=== PATIENT | female | born 1940 | race Caucasian/White ===

== ENCOUNTER → 2023-10-29 12:41 | Outpatient (REF) | payer MEDICARE, BC, SELFPAY ==
[2023-10-29 13:23] LABS: % Basophils 1.1 % (0-2); % Eosinophils 3.4 % (0-6); % Immature Granulocytes 0.1 % (0-0.5); % Lymphocytes 24.3 % (20.5-51.1); % Monocytes 11.2 % (1.7-9.3); % Neutrophils 59.9 % (42.2-75.2); Absolute Basophils 0.1 10^3/uL (0-0.2); Absolute Eosinophils 0.3 10^3/uL (0-0.7); Absolute Lymphocytes 1.8 10^3/uL (1.2-3.4); Absolute Monocytes 0.8 10^3/uL (0.1-0.6); Absolute Neutrophils 4.4 10^3/uL (1.4-6.5); Hematocrit 37.8 % (37.0-47.0); Hemoglobin 12.4 g/dL (12.0-16.0); Mean Corp Hgb Conc. 32.8 g/dL (33.0-37.0); Mean Corpuscular Hgb 29.2 pg (27.0-31.0); Mean Corpuscular Volume 88.9 fL (81.0-99.0); Mean Platelet Volume 10.6 fL (7.4-10.4); Nucleated Red Blood Cells % 0 %; Platelet Count 253 10^3/uL (130-400); Red Blood Cell Count 4.25 10^6/uL (4.20-5.40); Red Cell Dist. Width 14.6 % (11.5-14.5); White Blood Cell Count 7.3 10^3/uL (4.8-10.8)
[2023-10-29 14:34] LABS: ALT (SGPT) 24 U/L (0-35); AST (SGOT) 26 U/L (14-36); Albumin 3.9 g/dl (3.5-5.0); Alkaline Phosphatase 74 U/L (38-126); Blood Urea Nitrogen 21 mg/dl (7-17); Carbon Dioxide 26 mmol/L (22-30); Chloride 108 mmol/L (98-107); Glucose 90 mg/dl (70-99); HDL Cholesterol 63 mg/dl; LDL Cholesterol, Calculated 93 mg/dl; Potassium 4.2 mmol/L (3.5-5.1); Sodium 141 mmol/L (135-145); Total Bilirubin 0.4 mg/dl (0.2-1.3); Total Cholesterol 169 mg/dl (50-199); Total Protein 6.1 g/dl (6.3-8.2); Triglyceride 68 mg/dl (10-149); Very Low Density Lipoprotein 13 mg/dl (0-30); eGFR > 60.00
[2023-10-29 14:51] LABS: Vitamin D, 25-OH*** 32.8 ng/mL (30-80)
[2023-10-29 15:04] LABS: TSH 2.18 uIU/ml (0.47-4.68)
[2023-10-30 09:21] LABS: Intact PTH 64.3 pg/ml (13.6-85.8)
== END ==
LOC: OLABPV 12:41
PROVIDERS: ATTENDING PHYSICIAN Family Medicine
DX: E34.9 Endocrine disorder, unspecified (principal); D68.59 Other primary thrombophilia; Z79.01 Long term (current) use of anticoagulants; I10 Essential (primary) hypertension; Z68.30 Body mass index [BMI] 30.0-30.9, adult
CPT/HCPCS: 36415; 80053; 80061; 82306; 83970; 84443; 85025

== ENCOUNTER → 2023-12-25 11:27 | Outpatient (REF) | payer MEDICARE, BC, SELFPAY | LOC: RAD 11:27 | PROVIDERS: ATTENDING PHYSICIAN Registered Nurse; REFERRING PHYSICIAN Family Medicine | DX: M79.2 Neuralgia and neuritis, unspecified (principal) | CPT/HCPCS: 72040 ==

== ENCOUNTER 2024-01-02 19:44 | Emergency (ER) | payer MEDICARE, BC, SELFPAY ==
[2024-01-02 19:45] VITALS: BP 151/84
[2024-01-02 21:20] VITALS: BP 155/72
[2024-01-02 21:23] VITALS: BMI 32.0
[2024-01-02 21:42] LABS: % Basophils 0.7 % (0-2); % Eosinophils 1.7 % (0-6); % Immature Granulocytes 0.3 % (0-0.5); % Lymphocytes 19.6 % (20.5-51.1); % Neutrophils 67.7 % (42.2-75.2); Absolute Basophils 0.1 10^3/uL (0-0.2); Absolute Eosinophils 0.1 10^3/uL (0-0.7); Absolute Lymphocytes 1.4 10^3/uL (1.2-3.4); Absolute Monocytes 0.7 10^3/uL (0.1-0.6); Absolute Neutrophils 4.8 10^3/uL (1.4-6.5); Hematocrit 36.7 % (37.0-47.0); Hemoglobin 12.3 g/dL (12.0-16.0); Mean Corp Hgb Conc. 33.5 g/dL (33.0-37.0); Mean Corpuscular Hgb 29.6 pg (27.0-31.0); Mean Corpuscular Volume 88.2 fL (81.0-99.0); Mean Platelet Volume 9.8 fL (7.4-10.4); Nucleated Red Blood Cells % 0 %; Platelet Count 239 10^3/uL (130-400); Red Blood Cell Count 4.16 10^6/uL (4.20-5.40); Red Cell Dist. Width 14.5 % (11.5-14.5); White Blood Cell Count 7.1 10^3/uL (4.8-10.8)
[2024-01-02 21:48] LABS: Blood Urea Nitrogen 18 mg/dl (7-17); Calcium 9.7 mg/dl (8.4-10.2); Carbon Dioxide 29 mmol/L (22-30); Chloride 103 mmol/L (98-107); Estimated Creatinine Clearance 65 ml/min; Glucose 105 mg/dl (70-99); Potassium 4.8 mmol/L (3.5-5.1); Sodium 139 mmol/L (135-145); eGFR > 60.00
[2024-01-02 22:00] VITALS: BP 139/67
[2024-01-02 23:01] VITALS: BP 149/72
--- NOTE | 2024-01-02 23:43 | ED.GENMED ---
History of Present Illness
General
Chief Complaint: Skin Problem
Source: patient
Exam Limitations: none
Time Seen by Provider: 01/02/24 21:00
History of Present Illness
History of Present Illness:
83-year-old female presents with right lower extremity redness and swelling started yesterday. Patient has a history of chronic venous stasis changes bilateral lower extremities. She has had cellulitis in the past. She is on Coumadin. The
patient denies fevers or any other complaints.
Past History
Past History
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
ED Past Surgical History: Gynecological (Hysterectomy Total), Orthopedic (Back surgery, Heel surgery) and Other (Cerebral aneurysm)
Social History
Tobacco: Non-smoker
Alcohol: Occasional
Personal:
Living: alone
Phy Exam
Physical Exam
Physical Exam:
CONSTITUTIONAL Vital signs reviewed, Patient alert and oriented to person, place and time. Well-appearing
HEAD atraumatic, normocephalic.
EYES eyelids normal to inspection, Extraocular muscles intact, Conjunctiva normal, Sclera normal.
NECK normal range of motion, Trachea midline, no jugular venous distention.
RESP no respiratory distress
BACK No obvious deformities
UPPER EXTREMITY Gross Range of motion normal, gross motor strength normal
LOWER EXTREMITY Gross range of motion normal, Gross motor strength normal, chronic venous stasis changes bilaterally. The right lower extremity has redness that extends more proximally up toward the knee but there is no proximal streaking. Mild
increase in warmth. Mild edema
NEURO Speech normal, No focal motor deficits include, Silvia coma scale 15, Memory normal, Cranial Nerves intact to screening exam.
SKIN Skin warm, dry, and normal in color.
PSYCHIATRIC Patient oriented to person place and time, Normal affect.
Course
Orders/Labs/Results
Orders:
Orders
01/02/24 21:20
Basic Metabolic Panel Urgent
Complete Blood Count/With Diff Urgent
01/02/24 22:48
Prothrombin Time Urgent
01/02/24 22:57
Vancomycin 1 Gram/200 ml [Vancocin] 1 gram in 200 ml IV NOW
01/03/24 00:20
Acetaminophen [Tylenol] 650 mg .ROUTE .STK-MED ONE
01/03/24 00:21
Acetaminophen [Tylenol] 650 mg PO NOW STA
Abnormal Lab Results
01/02/24 01/02/24
21:20 22:48
RBC 4.16 L 10^6/uL
(4.20-5.40)
Hct 36.7 L %
(37.0-47.0)
Absolute Monos (auto) 0.7 H 10^3/uL
(0.1-0.6)
Lymphocytes % 19.6 L %
(20.5-51.1)
Monocytes % 10.0 H %
(1.7-9.3)
PT 25.9 H Sec
(11.4-14.6)
BUN 18 H mg/dl
(7-17)
Glucose 105 H mg/dl
(70-99)
01/02/24 21:20
01/02/24 21:20
Vital Signs
Initial and Last Documented VS:
Initial Vital Signs
Temp Pulse Resp BP Pulse Ox
98.1 F 79 16 151/84 95
01/02/24 19:45 01/02/24 19:45 01/02/24 19:45 01/02/24 19:45 01/02/24 19:45
Last Documented Vital Signs
Temp Pulse Resp BP Pulse Ox
98.1 F 79 16 162/82 91
01/02/24 19:45 01/02/24 19:45 01/02/24 19:45 01/03/24 00:00 01/03/24 00:00
MDM/Problems Addressed
MDM/Problems Addressed:
Cellulitis, chronic venous stasis
*Pulse Oximetry
Patient hypoxic: no
*Critical Care Note
Total Time (30-74mins, 75-104mins- exclusive of procedures): Not Applicable
Data Reviewed
Review of Other/Old Records Reveals: Discharge Summary (From December 2020 reviewed. Patient had cellulitis at that time)
Source: patient and family
Further Testing Considered But Not Given:
Consider DVT scan but patient already on Coumadin
Patient Management
Escalation/DeEscalation of care consider admission/obs:
Shared medical decision making for admission versus outpatient management. Patient would like to trial outpatient management which I think is reasonable given the fact that she is afebrile and her white count is normal. Given IV dose of Vanco.
Continue outpatient oral antibiotics
ED Attending Note
-
Portions of this chart may have been created with voice recognition software.� Occasional wrong word or��sound alike� substitutions may have occurred due to the inherent limitations of voice recognition software.
Discharge Plan
Departure
Patient Disposition: Home (Routine Discharge)
Date of Disposition: 01/03/24
Time of Disposition: 01:37
Patient with high blood pressure during this ER visit?: Yes
Discharge Problem:
Cellulitis, Chronic cutaneous venous stasis ulcer
Instructions: Cellulitis (Skin Infection), Adult (DC), BLOOD PRESSURE
Prescriptions:
New
doxycycline hyclate 100 mg capsule
100 mg PO BID Qty: 20 0RF
No Action
levothyroxine 75 MCG tablet
75 mcg PO DAILY
warfarin 2.5 mg Tablet
5 mg PO MOFR@1930
calcium carbonate [Calcium 600] 600 mg calcium (1,500 mg) Tablet
600 mg PO DAILY
gabapentin 300 mg Capsule
300 mg PO TID
furosemide 20 mg Tablet
20 mg PO DAILY
Visbiome 112.5 billion cell Capsule
1 cap PO DAILY
dexlansoprazole 30 mg Capsule,Biphase Delayed Releas
30 mg PO QPM
Foltx 2-1.13-25 mg Tablet
1 tab PO DAILY
warfarin [Jantoven] 2.5 MG tablet
2.5 mg PO SUTUWETHSA@1930
Referrals:
Sheldon Stewart CRNP [Family Provider] -
Activity Restrictions/Additional Instructions:
Return immediately for fevers, increased redness, weakness, or any other concerns. Please have your doctor reevaluate your lower extremity again in the next 3 to 5 days.
Interventions
Interventions:
*Risk Screen - Suicide Last Done: 01/02/24 19:45
*General Assessment Last Done: 01/02/24 19:45
*Neglect/Abuse Screening Last Done: 01/02/24 19:45
*ED COVID-19 Vaccine History Last Done: 01/02/24 21:24
Discharge Date and Time
Print Language: SPANISH
[2024-01-02] MEDS: VANCOCIN 200 IV (23:58)
[2024-01-03] VITALS: BP 162/82
[2024-01-03] MEDS: TYLENOL 650 MG PO (00:21)
[2024-01-03 00:40] LABS: INR 2.34; PT 25.9 Sec (11.4-14.6)
== END 2024-01-03 02:09 | disposition home or self-care (01) ==
LOC: EMR 19:44
PROVIDERS: EMERGENCY PHYSICIAN Emergency Medicine; FAMILY PHYSICIAN Registered Nurse
DX: L03.115 Cellulitis of right lower limb (principal); I87.2 Venous insufficiency (chronic) (peripheral); E03.9 Hypothyroidism, unspecified; K21.9 Gastro-esophageal reflux disease without esophagitis; Z86.73 Personal history of transient ischemic attack (TIA), and cerebral infarction without residual deficits; Z79.01 Long term (current) use of anticoagulants; Z79.899 Other long term (current) drug therapy
CPT/HCPCS: 99284; 96365; 80048; 85025; 85610

== ENCOUNTER → 2024-06-03 11:12 | Outpatient (REF) | payer MEDICARE, BC, SELFPAY ==
[2024-06-03 11:51] LABS: % Basophils 1.1 % (0-2); % Eosinophils 2.6 % (0-6); % Immature Granulocytes 0.3 % (0-0.5); % Lymphocytes 17.5 % (20.5-51.1); % Monocytes 10.5 % (1.7-9.3); Absolute Basophils 0.1 10^3/uL (0-0.2); Absolute Eosinophils 0.2 10^3/uL (0-0.7); Absolute Lymphocytes 1.5 10^3/uL (1.2-3.4); Absolute Monocytes 0.9 10^3/uL (0.1-0.6); Hematocrit 35.9 % (37.0-47.0); Hemoglobin 11.3 g/dL (12.0-16.0); Mean Corp Hgb Conc. 31.5 g/dL (33.0-37.0); Mean Corpuscular Hgb 27.3 pg (27.0-31.0); Mean Corpuscular Volume 86.7 fL (81.0-99.0); Mean Platelet Volume 10.5 fL (7.4-10.4); Nucleated Red Blood Cells % 0 %; Platelet Count 279 10^3/uL (130-400); Red Blood Cell Count 4.14 10^6/uL (4.20-5.40); Red Cell Dist. Width 15.2 % (11.5-14.5); White Blood Cell Count 8.8 10^3/uL (4.8-10.8)
[2024-06-03 15:30] LABS: ALT (SGPT) 25 U/L (0-35); AST (SGOT) 32 U/L (14-36); Albumin 4.6 g/dl (3.5-5.0); Alkaline Phosphatase 89 U/L (38-126); Blood Urea Nitrogen 15 mg/dl (7-17); Calcium 10.2 mg/dl (8.4-10.2); Carbon Dioxide 26 mmol/L (22-30); Chloride 100 mmol/L (98-107); Glucose 97 mg/dl (70-99); Potassium 5.1 mmol/L (3.5-5.1); Sodium 137 mmol/L (135-145); Total Bilirubin 1.4 mg/dl (0.2-1.3); Total Protein 7.5 g/dl (6.3-8.2); eGFR > 60.00
== END ==
LOC: OLABPV 11:12
PROVIDERS: ATTENDING PHYSICIAN Family Medicine
DX: D68.59 Other primary thrombophilia (principal); Z79.01 Long term (current) use of anticoagulants; K21.9 Gastro-esophageal reflux disease without esophagitis; I10 Essential (primary) hypertension
CPT/HCPCS: 36415; 80053; 85025

== ENCOUNTER → 2024-06-05 08:50 | Outpatient (REF) | payer MEDICARE, BC, SELFPAY | LOC: RAD 08:50 | PROVIDERS: ATTENDING PHYSICIAN Internal Medicine Gastroenterology; FAMILY PHYSICIAN Family Medicine | DX: R63.4 Abnormal weight loss (principal) | CPT/HCPCS: 74221 ==

== ENCOUNTER → 2024-06-18 09:57 | Outpatient (REF) | payer MEDICARE, BC, SELFPAY | LOC: RST 09:57 | PROVIDERS: ATTENDING PHYSICIAN Family Medicine | DX: J39.0 Retropharyngeal and parapharyngeal abscess (principal); R13.10 Dysphagia, unspecified | CPT/HCPCS: 74230; 92611 ==

== ENCOUNTER → 2024-07-03 10:35 | Outpatient (REF) | payer MEDICARE, BC, SELFPAY ==
[2024-07-03 12:02] LABS: % Basophils 0.9 % (0-2); % Eosinophils 1.8 % (0-6); % Immature Granulocytes 0.3 % (0-0.5); % Lymphocytes 15.8 % (20.5-51.1); % Monocytes 11.7 % (1.7-9.3); % Neutrophils 69.5 % (42.2-75.2); Absolute Basophils 0.1 10^3/uL (0-0.2); Absolute Eosinophils 0.2 10^3/uL (0-0.7); Absolute Lymphocytes 1.5 10^3/uL (1.2-3.4); Absolute Monocytes 1.1 10^3/uL (0.1-0.6); Absolute Neutrophils 6.8 10^3/uL (1.4-6.5); Hematocrit 38.8 % (37.0-47.0); Hemoglobin 12.3 g/dL (12.0-16.0); Mean Corp Hgb Conc. 31.7 g/dL (33.0-37.0); Mean Corpuscular Hgb 26.8 pg (27.0-31.0); Mean Corpuscular Volume 84.5 fL (81.0-99.0); Mean Platelet Volume 10.7 fL (7.4-10.4); Nucleated Red Blood Cells % 0 %; Platelet Count 304 10^3/uL (130-400); Red Blood Cell Count 4.59 10^6/uL (4.20-5.40); Red Cell Dist. Width 15.8 % (11.5-14.5); White Blood Cell Count 9.7 10^3/uL (4.8-10.8)
[2024-07-03 12:22] LABS: Iron 50 ug/dl (37-170)
[2024-07-03 12:31] LABS: Percent Saturation 13 % (20-50); Total Iron Binding Capacity 359 ug/dl (265-497)
[2024-07-03 12:47] LABS: Ferritin 87.2 ng/ml (11.1-264.0)
[2024-07-03 13:18] LABS: Folate > 20.0 ng/ml (2.76-20); Vitamin B12 > 1000 pg/ml (239-931)
== END ==
LOC: OLABPV 10:35
PROVIDERS: ATTENDING PHYSICIAN Family Medicine
DX: R79.89 Other specified abnormal findings of blood chemistry (principal); D64.9 Anemia, unspecified; D51.8 Other vitamin B12 deficiency anemias
CPT/HCPCS: 36415; 82607; 82728; 82746; 83540; 83550; 85025

== ENCOUNTER → 2024-07-17 09:54 | Outpatient (REF) | payer MEDICARE, BC, SELFPAY ==
[2024-07-17 10:44] LABS: % Basophils 0.9 % (0-2); % Eosinophils 2.6 % (0-6); % Immature Granulocytes 0.1 % (0-0.5); % Lymphocytes 18.2 % (20.5-51.1); % Monocytes 13.6 % (1.7-9.3); % Neutrophils 64.6 % (42.2-75.2); Absolute Basophils 0.1 10^3/uL (0-0.2); Absolute Eosinophils 0.2 10^3/uL (0-0.7); Absolute Lymphocytes 1.4 10^3/uL (1.2-3.4); Absolute Monocytes 1.1 10^3/uL (0.1-0.6); Hematocrit 36.4 % (37.0-47.0); Hemoglobin 11.4 g/dL (12.0-16.0); Mean Corp Hgb Conc. 31.3 g/dL (33.0-37.0); Mean Corpuscular Hgb 26.9 pg (27.0-31.0); Mean Corpuscular Volume 85.8 fL (81.0-99.0); Mean Platelet Volume 10.1 fL (7.4-10.4); Nucleated Red Blood Cells % 0 %; Platelet Count 279 10^3/uL (130-400); Red Blood Cell Count 4.24 10^6/uL (4.20-5.40); Red Cell Dist. Width 15.8 % (11.5-14.5); White Blood Cell Count 7.7 10^3/uL (4.8-10.8)
[2024-07-17 12:27] LABS: ALT (SGPT) 23 U/L (0-35); AST (SGOT) 21 U/L (14-36); Albumin 3.7 g/dl (3.5-5.0); Alkaline Phosphatase 82 U/L (38-126); Blood Urea Nitrogen 12 mg/dl (7-17); Calcium 9.9 mg/dl (8.4-10.2); Carbon Dioxide 27 mmol/L (22-30); Chloride 94 mmol/L (98-107); Glucose 85 mg/dl (70-99); Sodium 129 mmol/L (135-145); Total Bilirubin 0.6 mg/dl (0.2-1.3); Total Protein 6.1 g/dl (6.3-8.2); eGFR > 60.00
[2024-07-17 13:32] LABS: TSH 0.65 uIU/ml (0.47-4.68)
== END ==
LOC: OLABPV 09:54
PROVIDERS: ATTENDING PHYSICIAN Family Medicine
DX: R63.4 Abnormal weight loss (principal); R11.10 Vomiting, unspecified
CPT/HCPCS: 36415; 80053; 84443; 85025

== ENCOUNTER → 2024-07-22 11:48 | Outpatient (REF) | payer MEDICARE, BC, SELFPAY ==
[2024-07-22 12:40] LABS: NT-proBNP 172 pg/ml
[2024-07-22 12:42] LABS: Osmolality Urine 450 mOsm/kg (300-900)
[2024-07-22 12:55] LABS: Osmolality Serum 282 mOsm/kg (275-300)
[2024-07-22 12:57] LABS: Urine Sodium 55 mmol/L (30-90)
== END ==
LOC: OLABPV 11:48
PROVIDERS: ATTENDING PHYSICIAN Family Medicine
DX: E87.1 Hypo-osmolality and hyponatremia (principal); I10 Essential (primary) hypertension
CPT/HCPCS: 36415; 82570; 83880; 83930; 83935; 84300

== ENCOUNTER 2024-09-25 02:35 | Inpatient (IN) | payer MEDICARE, BC, SELFPAY ==
[2024-09-24 15:52] VITALS: BP 133/71
[2024-09-24 16:10] LABS: % Basophils 0.7 % (0-2); % Eosinophils 0.7 % (0-6); % Immature Granulocytes 0.3 % (0-0.5); % Lymphocytes 8.3 % (20.5-51.1); % Monocytes 7.2 % (1.7-9.3); % Neutrophils 82.8 % (42.2-75.2); Absolute Basophils 0.1 10^3/uL (0-0.2); Absolute Eosinophils 0.1 10^3/uL (0-0.7); Absolute Lymphocytes 0.8 10^3/uL (1.2-3.4); Absolute Monocytes 0.7 10^3/uL (0.1-0.6); Absolute Neutrophils 7.6 10^3/uL (1.4-6.5); Hematocrit 39.4 % (37.0-47.0); Hemoglobin 12.5 g/dL (12.0-16.0); Mean Corp Hgb Conc. 31.7 g/dL (33.0-37.0); Mean Corpuscular Hgb 25.8 pg (27.0-31.0); Mean Corpuscular Volume 81.2 fL (81.0-99.0); Mean Platelet Volume 9.9 fL (7.4-10.4); Nucleated Red Blood Cells % 0 %; Platelet Count 235 10^3/uL (130-400); Red Blood Cell Count 4.85 10^6/uL (4.20-5.40); Red Cell Dist. Width 16.9 % (11.5-14.5); White Blood Cell Count 9.2 10^3/uL (4.8-10.8)
[2024-09-24 16:26] LABS: ALT (SGPT) 24 U/L (0-35); AST (SGOT) 27 U/L (14-36); Albumin 3.9 g/dl (3.5-5.0); Alkaline Phosphatase 73 U/L (38-126); Blood Urea Nitrogen 17 mg/dl (7-17); Calcium 9.7 mg/dl (8.4-10.2); Carbon Dioxide 28 mmol/L (22-30); Chloride 99 mmol/L (98-107); Glucose 143 mg/dl (70-99); Potassium 4.4 mmol/L (3.5-5.1); Sodium 132 mmol/L (135-145); Total Bilirubin 0.6 mg/dl (0.2-1.3); eGFR > 60.00
[2024-09-24 18:15] LABS: Lipase 130 U/L (23-300)
[2024-09-24 18:33] VITALS: BP 140/65
--- NOTE | 2024-09-24 18:36 | ED.GENMED ---
History of Present Illness
General
Chief Complaint: Abdominal Symptoms
Source: patient
Exam Limitations: none
Time Seen by Provider: 09/24/24 18:36
Nursing documentation reviewed up to this point in time: agreed with
History of Present Illness
History of Present Illness:
84 yo female sent here from Dr. Elizabeth's office. Dr. Elizabeth texted the following:
Margoth Weiss 42
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
Acute complaints SOB , anorexia , bilious vomiting -witnessed here in office , and 30 pound weight loss in past 2 months , (exacerbated by psych)
Needs full workup and psych evaluation
May need meds ( benzodiazepines/ haldol ) as definite behavior issues
Daughter at bedside expresses concern for
1) coughing fits past 10 months, coughing so hard she gags and vomits and intermittently coughs up clots of blood. Last blood noted 3 days ago
2) SOB even when walking 15 steps, is 'completely out of breath'
3) Loss of 30 lbs past 5 months, 10 of that in past month. Daughter states she has trouble even to get her to drink Ensure.
Pt states she's had 'this cough' points to sternal notch area to describe where cough comes from.
Pt states every time she eats, 'it just comes right back up.' Denies nausea prior to vomiting
Daughter states pt has been worked up by ENT, GI for cough with no explanation of symptoms.
Daughter states Dr. Elizabeth wants CT scan of chest, abd, pelvis with contrast
Past History
Past History
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
ED Past Surgical History: Gynecological (Hysterectomy Total), Orthopedic (Back surgery, Heel surgery) and Other (Cerebral aneurysm)
Social History
Tobacco: Non-smoker
Alcohol: Occasional
Personal:
Living: alone
Review of Systems
Review of Systems
Allergies reviewed?: Yes
All Other Systems: ROS reviewed and negative except as documented in HPI and ROS
Constitutional: Denies fever
EENT: Reports sore throat (feels the problem is in her throat like 'scar tissue') and other (ptosis right eye)
Respiratory: Denies trouble breathing
Cardiac: Denies chest pain
ABD/GI: Reports vomiting (reported, none here); Denies abdominal pain or nausea
: Denies dysuria, frequency or difficulty voiding
Musculoskeletal: Reports no symptoms
Skin: Reports no symptoms
Neurological: Reports no symptoms
Phy Exam
Physical Exam
Physical Exam:
GENERAL: No acute distress. A&Ox3.
CONSTITUTIONAL: Afebrile.
EYES: clear, conjunctivae normal
ENMT: moist mucus membranes, Pharynx nl, swallowing well.
RESPIRATORY: Regular respirations, nonlabored, lungs clear.
CARDIOVASCULAR: Regular rate and rhythm, no murmurs, no rubs.
GI: Soft, nontender, normal BS
MUSCULOSKELETAL: Moves with ease. Well perfused.
SKIN: Warm, dry, pink
PSYCH: Normal mood and affect. Well kept, interactive and appropriate
NEUROLOGIC: Awake, alert and oriented. No focal neurological deficits
Course
Orders/Labs/Results
Orders:
Orders
09/24/24 15:58
Complete Blood Count/With Diff Urgent
Comprehensive Metabolic Panel Urgent
Lipase Urgent
Comment: ADD ON
09/24/24 18:22
EKG [Electrocardiogram (*1)] Urgent
Reason for Study: Shortness of Breath
EKG- Treatment ONCE
Chest [CR Chest - 2 Views ] Urgent
Comment:
Reason For Exam: cough/sob
09/24/24 19:22
Crisis Consult Urgent
Reason for Consult: failure to thrive,
09/24/24 19:28
CT Chest/abd/pel W Iv Cont Urgent
Comment: with po contrast
Reason For Exam: wt. loss, sig cough, unable to eat
09/24/24 19:29
Iohexol [Omnipaque] See Protocol PO NOW STA
09/24/24 19:32
0.9% Sodium Chloride 250 ml [Nss] 250 ml IV BOLUS
09/25/24 01:56
Admit/Transfer Patient As Directed
Co-Sign Provider:
Level of Care: Inpatient admission
Assign to:: Telemetry
Physician / Group: Mitchell
Diagnosis: Lung Mass, Hypoxemia
Reason for Telemetry: Arrhythmia
Date to Stop Telemetry: 09/28/24
Time to Stop Telemetry: 11:00
Reason for Hospitalization: Lung Mass, Hypoxemia
Expected length of stay greater than two midnights?: Yes
ELOS- Estimated Length of Stay in days: 4
I certify the patient meets the requirements for IP care: Yes
09/25/24 01:57
PRN Pain Medication Management As Directed
May give lesser potent ordered pain med per pt: Yes
preference::
Protocol:: Medication orders for pain may be administered in a
manner that supports deferring to patient preference
when the pt is:
- Requesting an ordered lesser potent pain medication.
Least to most potent pain medications are defined
as: acetaminophen < NSAID < tramadol < opioids
(morphine, oxycodone, hydromorphone).
- Requesting a lesser dose of the same medication IF
ORDERED.
- Requesting a less intrusive route of administration
if both routes are prescribed by the provider (PO <
IV).
09/25/24 01:58
Code Status As Directed
Resuscitation Status: Full Code
09/25/24 02:00
Flush (0.9% Sodium Chloride) [Flush (Nss)] See Dose Instructions IV PER PROTOCOL
09/25/24 02:33
Olanzapine [Zyprexa] 2.5 mg PO Q6HPRN PRN
09/25/24 03:43
Benzonatate [Tessalon Perles] 200 mg PO TIDPRN PRN
09/25/24 04:19
PT/INR [Prothrombin Time] Urgent
09/25/24 05:42
Acetaminophen [Tylenol] 650 mg PO Q4HPRN PRN
Albuterol Nebs [Ventolin Nebules] 2.5 mg INH R Q4HPRN PRN
09/25/24 05:42
Echo 2D MMode Doppler [Echo 2D MMode Color/Doppler] Routine
Reason for Study: SOB
Consult Notification Routine
Specialty to Notify: Pulmonary
Date consulting provider notified: 09/25/24
Time consulting provider notified: 07:13
Notified:: Provider
Comment: tt
PULMONARY CONSULT Routine
Consulting Provider: Gigi Hernandez
Was physician already notified: No
Reason for consult: Lung Mass
VTE Contraindication Routine
VTE Mechanical Device Contraindication: PVD
Pharmocologic Contraindication: Blood coag disorder
MR Brain W/o & With Contrast Routine
Comment:
Reason For Exam: Mental Status Change, Lung Mass
Recent pill cam endoscopy?: No
Activity As Directed
Activity Level: Ambulate
With Assistance
I/O [Intake/ Output] As Directed
Frequency: Per unit guidelines
Quantify Hemopytsis As Directed
Vital Signs As Directed
Frequency: Per unit guidelines
Weight As Directed
Frequency: Daily
Oxygen Therapy [O2 Therapy] [RESP] Routine
Titrate/Wean O2 to maintain O2 sat greater than (%): 94
09/25/24 Breakfast
Regular
At Your Request: Limited Participation
Oral Supplement (If unsure of flavor order apple or vanilla): Ensure Enlive Vanilla
Supplement Frequency: BID
Levothyroxine [Synthroid] 75 mcg PO DAILY @ 0600
09/25/24 06:37
Complete Blood Count/No Diff IN AM
Prothrombin Time IN AM
TSH Reflex To Free T4 Routine
09/25/24 08:00
Pantoprazole [Protonix] 40 mg PO DAILY
09/26/24 06:00
Prothrombin Time IN AM
09/27/24 06:00
Prothrombin Time IN AM
09/28/24 06:00
Prothrombin Time IN AM
09/28/24 11:00
DC Protocol for Telemetry ONCE
09/29/24 06:00
Prothrombin Time IN AM
Abnormal Lab Results
09/24/24
15:58
MCH 25.8 L pg
(27.0-31.0)
MCHC 31.7 L g/dL
(33.0-37.0)
RDW 16.9 H %
(11.5-14.5)
Absolute Neuts (auto) 7.6 H 10^3/uL
(1.4-6.5)
Absolute Lymphs (auto) 0.8 L 10^3/uL
(1.2-3.4)
Absolute Monos (auto) 0.7 H 10^3/uL
(0.1-0.6)
Neutrophils % 82.8 H %
(42.2-75.2)
Lymphocytes % 8.3 L %
(20.5-51.1)
Sodium 132 L mmol/L
(135-145)
Glucose 143 H mg/dl
(70-99)
09/24/24 15:58
09/24/24 15:58
Vital Signs
Initial and Last Documented VS:
Initial Vital Signs
Temp
98.0 F
09/24/24 15:49
Last Documented Vital Signs
Temp Pulse Resp BP Pulse Ox
98.0 F 93 20 140/75 93
09/25/24 15:00 09/25/24 15:00 09/25/24 15:00 09/25/24 15:00 09/25/24 15:00
MDM/Problems Addressed
Differential Diagnosis Includes:
anxiety about health, PNA,
MDM/Problems Addressed:
84 yo female sent here from Dr. Elizabeth's office. Dr. Elizabeth texted the following:
Margoth Axler 42
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
Acute complaints SOB , anorexia , bilious vomiting -witnessed here in office , and 30 pound weight loss in past 2 months , (exacerbated by psych)
Needs full workup and psych evaluation
May need meds ( benzodiazepines/ haldol ) as definite behavior issues
Daughter at bedside expresses concern for
1) coughing fits past 10 months, coughing so hard she gags and vomits and intermittently coughs up clots of blood. Last blood noted 3 days ago
2) SOB even when walking 15 steps, is 'completely out of breath'
3) Loss of 30 lbs past 5 months, 10 of that in past month. Daughter states she has trouble even to get her to drink Ensure.
Pt states she's had 'this cough' points to sternal notch area to describe where cough comes from.
Pt states every time she eats, 'it just comes right back up.' Denies nausea prior to vomiting
Daughter states pt has been worked up by ENT, GI for cough with no explanation of symptoms.
Daughter states Dr. Elizabeth wants CT scan of chest, abd, pelvis with contrast
7:00 p.m.
Afebrile, NAD.
CBC, CMP normal
Lipase normal
9:50 PM:
Received a call from CAT scan, patient jumped off the table as soon as it started to move, she is refusing to have a CAT scan
She has been very difficult to get to do anything that we recommend here tonight
Crisis has been in, patient's daughter considered a 302 but turf farm worker states it probably will not be upheld
Daughter then tells turf farm worker that there is a 'psychiatric team' that is going to evaluate the patient tomorrow at home
Crisis in to speak with patient and daughter.
10:15 p.m.
Just prior to discharge, pt road test failed, she is tachypneic, mild upper airway stridor, pulse ox dipped to 88%
Pt spoken to by RN and myself and daughter, she is now willing to go to CT scan.
11:55 PM:
CAT scan abdomen pelvis and chest: Radiology report read: IMPRESSION:
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
left atrium.
Multiple pulmonary metastases.
Fluid attenuation hepatic lesions favored to represent cysts, but hepatic metastases are not completely excluded.
Daughter notified of complete radiology report/diagnosis
Due to patient's fragile psychological status, informed that she has a mass on her lungs and has to be admitted for further evaluation.
Hospitalist notified of admission
Chronic conditions affecting care: Psychiatric illness (anxiety)
*Critical Care Note
Total Time (30-74mins, 75-104mins- exclusive of procedures): Not Applicable
ED Attending Note
-
Portions of this chart may have been created with voice recognition software.� Occasional wrong word or��sound alike� substitutions may have occurred due to the inherent limitations of voice recognition software.
Discharge Plan
Departure
Patient Disposition: Admit
Date of Disposition: 09/24/24
Time of Disposition: 23:50
Admit to: Med/Surg
Presentation/result/management discussed w/ accepting MD/DO: Hospitalist
Patient with high blood pressure during this ER visit?: No
Condition: Serious
Discharge Problem:
Metastatic cancer, Hypoxemia
Interventions
Interventions:
*Risk Screen - Suicide Last Done: 09/24/24 15:49
*General Assessment Last Done: 09/24/24 18:43
*Neglect/Abuse Screening Last Done: 09/24/24 15:49
*ED- Fall Risk Assessment Last Done: 09/24/24 18:43
*ED COVID-19 Vaccine History Last Done: 09/25/24 01:12
*Nursing Disposition Last Done: 09/25/24 05:46
PA-Fbngqf-Heybzrests Assessment Last Done: 09/24/24 18:43
Discharge Date and Time
Discharge Date/Time: 09/25/24 05:48
[2024-09-24 18:43] VITALS: BMI 27.1
[2024-09-24 19:00] VITALS: BP 134/76
[2024-09-24] MEDS: OMNIPAQUE 50 ML PO (19:36)
[2024-09-24 20:00] VITALS: BP 143/78
[2024-09-24] MEDS: NSS 250 IV (20:47)
[2024-09-25] VITALS (11 sets, daily range): BP systolic 98–156; BP diastolic 60–96; BMI 25.5
--- NOTE | 2024-09-25 02:04 | HPS.HSE ---
Family Physician
-
Family Physician: NOT KNOW UNKNOWN - PT DOES
Chief Complaint
-
Cough, SOB, Weight Loss
History of Present Illness
Patient is an 84y F with PMH significant for Protein C Deficiency who presents to ED for evaluation of cough, SOB and weight loss. History obtained from patient and her daughter at the bedside. Patient has had ongoing cough for about 8 months
or so. This has become increasingly more frequent and harsh. She has occasional paroxysms of cough with 'emesis' - though it is usually of mucoid secretions. She has had streaks of blood / clots noted in the mucus more recently. Patient has been
notably short of breath with activity for the past month or so. This too has been steadily progressive and daughter notes that yesterday she could barely walk due to SOB. She denies any pain in the chest, back, etc.
No fevers / chills. No known sick contacts.
Patient has had very poor appetite x several months as well and has lost about 30 lbs in the past 6 months.
Patient has been recently evaluated by ENT and GI in regards to her cough - with no clear diagnosis / etiology discovered.
She was seen today by her PCP and referred to the ED for further evaluation. There is noted some concern for psychiatric disturbance / behaviors in PCP correspondence.
Medical History
Past Medical History
Past Medical History: Reports Other
Additional Past Medical History:
Protein C Deficiency
- Cerebral Thrombosis
- DVT
GERD
DDD
Venous Insufficiency
Hypothyroidism
Past Surgical History: Reports Other
Additional Past Surgical History:
Cerebral Thrombectomy
Lumbar Discectomy
Fibroid Resection
Social History
Tobacco: Non-smoker
Alcohol: None
Drug: None
Family History
Family History: Other (Father: CAD Brother: DM, CAD)
Allergies / Home Medications
Allergies reflects when Allergies were last updated in [employer].
Home Medications with original date entered in [employer]
Allergy/Medication List:
Allergies
Allergy/AdvReac Type Severity Reaction Status Date / Time
Sulfa (Sulfonamide Allergy Unknown Verified 09/24/24 15:51
Antibiotics)
Home Medications
levothyroxine 75 mcg tablet 75 mcg PO DAILY Thyroid 01/04/21
Lactobac no.2-Bifidobac no.1-S. thermo 112.5 billion cell capsule (Visbiome) 1 cap PO DAILY 01/02/24
calcium carbonate (Calcium 600) 600 mg PO DAILY 01/02/24
cyanocobalamin 2 mg-levomefolate brittanie 1.13 mg-pyridoxine 25 mg tablet (Foltx) 1 tab PO DAILY 01/02/24
dexlansoprazole 30 mg capsule,biphase delayed release 30 mg PO QPM 01/02/24
furosemide 20 mg tablet 20 mg PO DAILY 01/02/24
gabapentin 300 mg capsule 300 mg PO TID 01/02/24
warfarin 2.5 mg tablet 5 mg PO MOFR@192901/02/24
warfarin 2.5 mg tablet (Jantoven) 2.5 mg PO SUTUWETHSA@192901/02/24
doxycycline hyclate 100 mg capsule 100 mg PO BID #20 caps 01/03/24
tramadol 1 tab PO HS 09/24/24
Review of Systems
-
History Source: Patient and Family
A 12 point ROS was completed and negative except as noted: Yes
Constitutional: Reports Weight Loss and Fatigue; Denies Fever or Chills
EENT: Reports Sore Throat
Respiratory: Reports Cough, Hemoptysis and Trouble Breathing
Cardiac: Denies Chest Pain or Palpitations
Abdomen/GI: Reports Vomiting and Anorexia; Denies Abdominal Pain or Nausea
: Denies Dysuria or Frequency
Musculoskeletal: Reports Edema; Denies Joint Pain
Neurological: Denies Dizzy or Headache
Psych: Denies Depression or Anxiety
Physical Exam
Vital Signs
Vital Signs
Temp Pulse Resp BP Pulse Ox
98.3 F 64 18 127/70 97
09/24/24 15:52 09/25/24 01:09 09/25/24 01:09 09/25/24 01:09 09/25/24 01:09
Physical Exam
General: Other (84y F in no acute distress.)
HEENT: Other (Chronic R ptosis. R visual field deficit - chronic.)
Respiratory: Other (Decreased BS at the R base. Scattered wheezes. Cough with deep inspiration.)
Cardiac: S1/S2 and Regular Rhythm; No Murmur
GI: Soft, Non Tender, Non Distended and Normal Bowel Sounds
Musculoskeletal: No Clubbing and Other (Chronic venous stasis dermatitis b/l lower legs.)
Neuro: AO x 3
Laboratory Results
-
09/24/24 15:58
09/24/24 15:58
Laboratory Results
Total Bilirubin 0.6 mg/dl (0.2-1.3) 09/24/24 15:58
AST 27 U/L (14-36) 09/24/24 15:58
ALT 24 U/L (0-35) 09/24/24 15:58
Alkaline Phosphatase 73 U/L (38-126) 09/24/24 15:58
Lipase 130 U/L (23-300) 09/24/24 15:58
Impression/Plan
-
A/P: Patient is a 71y F with PMH significant for protein C deficiency and hypothyroidism who presents to ED complaining of cough, SOB and weight loss x months.
Pulmonary Mass(es)
Hypoxemic Respiratory Insufficiency secondary to the above
- Admit for further evaluation and treatment.
- Large RLL mass with collapse / atelectasis of RML and local extension / invasion including the liver, R adrenal and L atrium. Additional smaller lesions in the b/l upper lobes.
- Pulmonary evaluation for additional recommendations.
- Will need tissue sampling / pathology with either Pulm / FOB or IR.
- Hold Coumadin for now (see below).
- Supportive care. Nutrition support. etc.
- Oncology eval following tissue diagnosis.
Mental Status Change
- Not clear how chronic behavior issues are - but not formally evaluated / diagnosed by Psych yet and no mention of this on prior visits here.
- Given apparent malignancy, would check MRI brain with contrast to rule out metastatic lesions therein.
- Zyprexa PRN for agitation.
Protein C Deficiency
- History of cerebral thrombosis many years ago (1970s) and RLE DVT (1980s).
- Maintained on Coumadin which will be held acutely.
- Follow INR (initial check still pending at this time).
- If no intervention imminent, would begin heparin bridge once INR < 2.5 and resume immediately post-procedure.
- INR goal 2.5 - 3.5.
Hypothyroidism
- Continue current T4 replacement. Update TFTs.
GERD
- Continue daily PPI.
DVT Prophylaxis: On Coumadin at present / heparin bridge when needed.
Code Status: Full
[2024-09-25] MEDS: ZYPREXA 2.5 MG PO (02:47)
[2024-09-25] MEDS: TESSALON PERLES 200 MG PO ×4 (03:51→22:14)
[2024-09-25 04:38] LABS: INR 1.69; PT 20.4 Sec (11.4-14.6)
[2024-09-25] MEDS: SYNTHROID 75 MCG PO (05:53)
--- NOTE | 2024-09-25 05:55 | PTCARENOTE ---
Pt recieved from ED via stretcher at 0540. Pt AAOx3, VSS, and able to ambulate into room with assistance. Pt receptive to room and call balderas. Pt bed in lowest position and call balderas within reach. Pt educated on importance of call balderas usage, pt
relays understanding. Bed alarm placed and plugged in. Will continue with current plan of care.
[2024-09-25 07:09] LABS: Hematocrit 38.5 % (37.0-47.0); Mean Corp Hgb Conc. 33.8 g/dL (33.0-37.0); Mean Corpuscular Hgb 26.5 pg (27.0-31.0); Mean Corpuscular Volume 78.4 fL (81.0-99.0); Mean Platelet Volume 10.2 fL (7.4-10.4); Platelet Count 213 10^3/uL (130-400); Red Blood Cell Count 4.91 10^6/uL (4.20-5.40); Red Cell Dist. Width 16.8 % (11.5-14.5); White Blood Cell Count 8.3 10^3/uL (4.8-10.8)
[2024-09-25 07:16] LABS: INR 1.61; PT 19.7 Sec (11.4-14.6)
--- NOTE | 2024-09-25 08:33 | W.PN.HOSP.TC ---
Today's Communication/Plan
-
see A/P
Assessment / Plan
Assessment / Plan
84 yo F with PMH significant for Protein C Deficiency who presented to ED for evaluation of cough, SOB and weight loss. History obtained from patient and her daughter at bedside.
Patient has had ongoing cough for about 8 months or so. This has become increasingly more frequent and harsh. She has occasional paroxysms of cough with 'emesis' - though it is usually of mucoid secretions. She has had streaks of blood / clots
noted in the mucus more recently. Patient has been notably short of breath with activity for the past month or so. This too has been steadily progressive and daughter notes that yesterday she could barely walk due to SOB. She denies any pain in the
chest, back, etc.
No fevers / chills. No known sick contacts.
Patient has had very poor appetite x several months as well and has lost about 30 lbs in the past 6 months.
Patient has been recently evaluated by ENT and GI in regards to her cough - with no clear diagnosis / etiology discovered.
She was seen on DOA by her PCP and referred to the ED for further evaluation. There is noted some concern for psychiatric disturbance / behaviors in PCP correspondence.
CT CAP:
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
left atrium.
Multiple pulmonary metastases.
Fluid attenuation hepatic lesions favored to represent cysts, but hepatic metastases are not completely excluded.
A/P:
# Pulmonary Mass(es)
# Acute hypoxic Respiratory Insufficiency secondary to the above
Large RLL mass with collapse / atelectasis of RML and local extension / invasion including the liver, R adrenal and L atrium. Additional smaller lesions in the b/l upper lobes.
Pulmonary evaluation for additional recommendations.
Will need tissue sampling / pathology with either Pulm / FOB or IR.
Hold Coumadin for now (see below).
Oncology eval following tissue diagnosis.
Check echo with CT report noted likely cancer invasion to left atrium.
# Mental Status Change
Not clear how chronic behavior issues are - but not formally evaluated / diagnosed by Psych yet and no mention of this on prior visits here.
Given apparent malignancy, would check MRI brain with contrast to rule out metastatic lesions therein.
Zyprexa PRN for agitation.
# Protein C Deficiency
# History of cerebral thrombosis many years ago (1970s) and RLE DVT (1980s).
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
Start heparin bridge
# Hypothyroidism
Continue current T4 replacement. Update TFTs.
# GERD
Continue daily PPI.
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
Code Status: Full
updated daughter on the phone. Extensive discussion
total time spent 51 min
Anticipated Discharge: > 48 hours
Subjective/Interval History
-
Date of Service: September 25, 2024
Objective Data
-
Labs:
Laboratory Results
09/25/24 09/25/24 09/25/24
04:19 06:37 08:11
WBC 8.3
Hgb 13.0
Hct 38.5
Plt Count 213
PT 20.4 H 19.7 H
INR 1.69 1.61
Sodium Cancelled Pending
Potassium Cancelled Pending
Chloride Cancelled Pending
Carbon Dioxide Cancelled Pending
BUN Cancelled Pending
Creatinine Cancelled Pending
Glucose Cancelled Pending
Calcium Cancelled Pending
Vital Signs:
Vital Signs
Temp Pulse Resp BP Pulse Ox
36.6 C 91 20 98/78 94
09/25/24 05:59 09/25/24 05:59 09/25/24 05:59 09/25/24 05:59 05/30/25 05:59
I&O
09/24/24 09/25/24 09/26/24
06:59 06:59 06:59
Intake Total 480 / 480
Balance 480 / 480
Review of Systems
-
History Source: Patient
Respiratory: Reports Cough and Trouble Breathing
Physical Exam
-
General: Well Developed, Well Nourished, Comfortable, Respiratory Distress (mild) and Conversant
HEENT: Normocephalic, Atraumatic, Nose Appears Normal, Ears Appear Normal and Oxygen (2L NC)
Respiratory: Non Labored Respirations; Negative Accessory Resp Muscle Use
Cardiac: Regular Rhythm and S1/S2
GI: Soft, Nontender, Nondistended and Normal Bowel Sounds
Skin: Warm and Dry
Neuro: Awake and Alert
Psych: Calm and Intact Judgement/Insight
Data Reviewed
-
CT Scan: Report Reviewed by me, Discussed with Patient and Discussed with Family
Labs: Labs Reviewed by me
[2024-09-25] MEDS: PROTONIX 40 MG PO (08:55)
[2024-09-25] MEDS: ANESTHETIC LOZENGE 1 LOZENGE PO ×3 (08:56→23:31)
--- NOTE | 2024-09-25 08:59 | CON.PUL ---
Consultation
Consultation Request
Date/Time Consultation Requested: 09/25
Date/Time Consultation Performed: 09/25
Reason for Consultation: Abnormal imaging
Medical History
-
History of Present Illness:
History obtained from the patient, reviewing inpatient records, outpatient records and history from the daughter at the bedside. Pleasant 84-year-old female who presents with abdominal symptoms. Patient was sent by primary physician. Patient has
history of possible schizophrenia/bipolar disorder. She has noticed a 30 pound weight loss over the past few months. Patient also has been complaining of cough, with blood clots over the past few months. She also describes increased shortness of
breath, difficulty taking a deep breath. She was noted to have episodes of emesis which prompted ED evaluation. Upon arrival, afebrile, pulse 96, breathing at 27, blood pressure 143/78, 92%. Imaging was obtained which revealed significant lung
abnormalities which we are asked to comment on
Of note, crisis team was called in the ED yesterday p.m. as patient refused to have a CAT scan. Patient did have some mild stridor which was transient associated with tachypnea
.
PMH: Questionable schizophrenia/bipolar disorder, history of GERD, hypothyroidism, protein C deficiency with history of DVT, IBS, chronic venous stasis changes. History of hysterectomy, back surgery, history of stroke with cerebral aneurysm in the
1970s
Past Medical History
Past Medical History: None (See above)
Past Surgical History: None (See above)
Social History
Tobacco: Non-smoker
Alcohol: None
Drug: None
Personal:
Living: Alone
Employment: Not Employed
Family History
Family History: Other (1 daughter who is healthy. Family history negative for cancer, blood clots)
Allergies / Home Medications
Allergies
Allergy/AdvReac Type Severity Reaction Status Date / Time
Sulfa (Sulfonamide Allergy Unknown Verified 09/24/24 15:51
Antibiotics)
Home Medications
�Medication �Instructions �Recorded �Confirmed �Last Taken �Type
levothyroxine 75 mcg tablet 75 mcg PO DAILY Thyroid 01/04/21 09/24/24 09/24/24 History
Lactobac no.2-Bifidobac no.1-S. 1 cap PO DAILY 01/02/24 09/24/24 09/24/24 History
thermo 112.5 billion cell capsule
(Visbiome)
calcium carbonate (Calcium 600) 600 mg PO DAILY 01/02/24 09/24/24 09/24/24 History
cyanocobalamin 2 mg-levomefolate 1 tab PO DAILY 01/02/24 09/24/24 09/24/24 History
brittanie 1.13 mg-pyridoxine 25 mg
tablet (Foltx)
dexlansoprazole 30 mg 30 mg PO QPM 01/02/24 09/24/24 09/24/24 History
capsule,biphase delayed release
furosemide 20 mg tablet 20 mg PO DAILY 01/02/24 09/24/24 09/24/24 History
gabapentin 300 mg capsule 300 mg PO TID 01/02/24 09/24/24 01/02/24 History
warfarin 2.5 mg tablet 5 mg PO MOFR@0 01/02/24 09/24/24 09/24/24 History
warfarin 2.5 mg tablet (Jantoven) 2.5 mg PO SUTUWETHSA@1930 01/02/24 09/24/24 09/24/24 History
doxycycline hyclate 100 mg capsule 100 mg PO BID #20 caps 01/03/24 09/24/24 Unknown Rx
tramadol 1 tab PO HS 09/24/24 09/24/24 09/23/24 History
Review of Systems
-
All other systems: Negative unless noted
Vitals / Labs / Diagnostic Testing
Vital Signs
Temp Pulse Resp BP Pulse Ox
98.2 F 88 18 140/72 94
09/25/24 07:00 09/25/24 07:00 09/25/24 07:00 09/25/24 07:00 09/25/24 07:00
Lab Data
09/25/24 08:42
Laboratory Results
09/25/24 09/25/24 09/25/24
04:19 06:37 08:42
PT 20.4 H 19.7 H
INR 1.69 1.61
APTT Cancelled
Diagnostic Testing:
Physical Exam
-
HEENT: Normocephalic, Anicteric and Other (Right lid lag)
Cardiovascular: S1/S2, Regular Rhythm, Murmur (2/6 systolic murmur) and Rub (n)
Respiratory: Wheeze (Few scattered), Rales (n), Rhonchi (n), Non-Labored Respirations, Other (No stridor) and Other (Decreased breath sounds right side)
GI: Soft, Non Distended and Non Tender
Neurology: Awake, Alert and No Motor Deficits (Moves all extremities)
Skin: Other (Chronic venous stasis changes)
General: Comfortable
Assessment
-
84-year-old female with history of protein C deficiency, DVT, stroke/cerebral aneurysm in , presents with 30 pound weight loss, hemoptysis, cough for many months, now with increased shortness of breath and emesis. CT imaging reveals 12.3 cm
right lower lobe mass with invasion into the left atrium, right hepatic lobe and adrenal gland with multiple pulmonary metastases
12.3 cm right lung mass with invasion into the liver, mediastinum
Subjective dyspnea, cough x 10 months
Hemoptysis
30 pound weight loss
Bilious emesis
Questionable schizophrenia/bipolar disorder
Conditions present prior to admission
History of protein C deficiency
DVT, stroke
On chronic Coumadin therapy
Seizure disorder
GERD
Chronic venous stasis changes
Plan/recommendations
At this time, patient appears to be comfortable. There is no audible wheezing or stridor
Chest exam with decreased breath sounds right side
Reviewed CT imaging at length with patient and daughter
Concerning for underlying malignancy okay thanks bye
Moving forward
Remains off Coumadin
Heparin will be started per primary service as bridge
Consulted interventional radiology for transthoracic lung biopsy, possible liver biopsy
Timing to be determined
Quantify hemoptysis
Patient aware of likely cancer diagnosis. She would like to proceed with least a biopsy. This was confirmed by daughter at bedside
She is aware that if found to have metastatic cancer, chemotherapy would be the next step. She proceeded to state that she would not want chemotherapy
This will be an ongoing discussion
Reviewed with interventional radiology. Consult placed
Echocardiogram also ordered per primary service
Would advise ongoing discussion regarding goals of care. Patient presently is full code
Given description of potential invasion into the mediastinum, atrium, encouraged ongoing discussion regarding CODE STATUS
Will follow
[2024-09-25 09:34] LABS: TSH Reflex To Free T4 1.71 uIU/ml (0.47-4.68)
[2024-09-25 09:44] LABS: Blood Urea Nitrogen 11 mg/dl (7-17); Calcium 9.6 mg/dl (8.4-10.2); Carbon Dioxide 28 mmol/L (22-30); Chloride 100 mmol/L (98-107); Estimated Creatinine Clearance 64 ml/min; Glucose 139 mg/dl (70-99); Potassium 4.3 mmol/L (3.5-5.1); Sodium 134 mmol/L (135-145); eGFR > 60.00
--- NOTE | 2024-09-25 11:38 | CM ---
Met with patient at bedside; initial assessment completed
Pharmacy verified: [facility] @ [id number], [place], [place]
Patient lives alone @ [facility]; bath has raised toilet, shower stall with grab bar
PLOF: patient reported she is independent with ambulation and ADLs; does not drive; has a vision impairment
No recent SNF or Home Health utilization history
DME: INR test device
Daughter will transport
Plan: anticipate discharge to home; CM will monitor for home oxygen needs
[2024-09-25] MEDS: HEPARIN 25000 UNITS/250 ML IV (13:15)
--- NOTE | 2024-09-25 18:04 | W.PN.UPDATE ---
Update Note
Progress Note Update
Reviewed images at length with interventional radiology. Unfortunately significant necrosis is suspected based on imaging. Additionally given invasion, at least compression into the left atrium, daughter states that patient has difficulty lying
down for prolonged period of time. In fact, Daughter is convinced that what happened yesterday when patient was lying down for CT chest was a sense of shortness of breath and dread as opposed to a panic attack or psychiatric event. This would make
sense given location of mass, obstruction of airway, compression/invasion of left atrium and mediastinal structures
Based on this, I would advise against a biopsy as it may cause more harm than help the patient. Patient is already made a clear at least with my discussion that she would not want any treatment (i.e. chemotherapy).
I advised daughter to speak with patient regarding the above. If patient would like to proceed with biopsy on Saturday we can arrange understanding the risk and the potential inability to biopsy based on inability to maintain supine position for
prolonged period of time
Daughter also states that patient has had advanced directive where she would not want anything aggressive but apparently she has changed this. Daughter is power of real estate attorney. This will be an ongoing discussion between the daughter and the patient.
Please note that daughter is requesting not to discuss any negative findings without daughter present as patient tends to get panic attacks and extremely anxious. We will try to honor this.
For now, continue heparin therapy. Plan for possible biopsy on Saturday if patient and family requests understanding risks vs transition to palliative care
Reviewed at length with primary service, interventional radiology
Will follow
[2024-09-25 20:52] LABS: APTT 99.8 Sec (23.4-35.0)
[2024-09-26] VITALS (7 sets, daily range): BP systolic 120–168; BP diastolic 70–99
[2024-09-26 03:44] LABS: APTT 150.7 Sec (23.4-35.0)
[2024-09-26] MEDS: SYNTHROID 75 MCG PO (06:11)
[2024-09-26 09:00] LABS: INR 1.54; PT 18.7 Sec (11.4-14.6)
[2024-09-26 09:35] LABS: Blood Urea Nitrogen 9 mg/dl (7-17); Calcium 9.5 mg/dl (8.4-10.2); Carbon Dioxide 26 mmol/L (22-30); Chloride 103 mmol/L (98-107); Estimated Creatinine Clearance 64 ml/min; Glucose 94 mg/dl (70-99); Potassium 4.3 mmol/L (3.5-5.1); Sodium 135 mmol/L (135-145); eGFR > 60.00
[2024-09-26] MEDS: ZYPREXA 2.5 MG PO (09:54)
[2024-09-26] MEDS: PROTONIX 40 MG PO (09:54)
[2024-09-26] MEDS: TESSALON PERLES 200 MG PO ×2 (09:55→22:18)
[2024-09-26] MEDS: ANESTHETIC LOZENGE 1 LOZENGE PO ×2 (09:55→20:30)
--- NOTE | 2024-09-26 11:30 | W.PN.UPDATE ---
Update Note
Progress Note Update
Psychiatric Evaluation dictated.
84 year old lady who was just diagnosed with likely lung Ca. She admits she is anger and is questioning the diagnosis; wants to be transferred to [facility]. She denies hopelessness or suicidal thoughts.
Overall friendly and cooperative with the interview. Denies previous psychiatric history; daughter who was present is also not aware of any.
At this point emotional suppot is indicated; no psychotropic meds are needed.
Discussed with daughter.
[2024-09-26] MEDS: HEPARIN 25000 UNITS/250 ML IV (11:41)
[2024-09-26] MEDS: MORPHINE SULFATE 0.25 MG IV (11:49)
--- NOTE | 2024-09-26 12:43 | W.PN.HOSP.TC ---
Today's Communication/Plan
-
Transfer to IVU, heparin gtt for rapid afib.
Assessment / Plan
Assessment / Plan
84 yo F with PMH significant for Protein C Deficiency who presented to ED for evaluation of cough, SOB and weight loss. History obtained from patient and her daughter at bedside.
Patient has had ongoing cough for about 8 months or so. This has become increasingly more frequent and harsh. She has occasional paroxysms of cough with 'emesis' - though it is usually of mucoid secretions. She has had streaks of blood / clots
noted in the mucus more recently. Patient has been notably short of breath with activity for the past month or so. This too has been steadily progressive and daughter notes that yesterday she could barely walk due to SOB. She denies any pain in the
chest, back, etc.
No fevers / chills. No known sick contacts.
Patient has had very poor appetite x several months as well and has lost about 30 lbs in the past 6 months.
Patient has been recently evaluated by ENT and GI in regards to her cough - with no clear diagnosis / etiology discovered.
She was seen on DOA by her PCP and referred to the ED for further evaluation. There is noted some concern for psychiatric disturbance / behaviors in PCP correspondence.
CT CAP:
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
the right adrenal gland, and the left atrium.
Multiple pulmonary metastases.
Fluid attenuation hepatic lesions favored to represent cysts, but hepatic metastases are not completely excluded.
A/P & Hospital course by problem:
1. Pulmonary Mass(es) and Acute hypoxic Respiratory Insufficiency secondary to the above
Large RLL mass with collapse / atelectasis of RML and local extension / invasion including the liver, R adrenal and L atrium.
Additional smaller lesions in the b/l upper lobes.
Pulmonary evaluation for additional recommendations.
Will need tissue sampling / pathology with either Pulm / FOB or IR if tolerable
Continue to Hold Coumadin (see below).
Oncology eval following tissue diagnosis, if tissue diagnosis is possible
Checked echo given that the CT report noted likely cancer invasion to left atrium.
Echo ok.
2. Mental Status Change
Not clear how chronic behavior issues are - but not formally evaluated / diagnosed by Psych yet and no mention of this on prior visits here.
Given apparent malignancy, check MRI brain with contrast to rule out metastatic lesions therein. MRI pending
Zyprexa PRN for agitation.
3. Rapid Afib - new issue
Started IV dilt gtt
Transfer to IVU
Check troponins
4. Protein C Deficiency - Chronic
5. History of cerebral thrombosis many years ago (1970s) and RLE DVT (1980s).
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
heparin bridge while coumadin held
6. Hypothyroidism
Continue current T4 replacement.
Update TFTs.
7. GERD - chronic
Continue daily PPI.
DVT Prophylaxis: TELEPHONE MECHANIC Coumadin on hold, on heparin bridge
Code Status: Full
updated daughter in the room
total time spent 51 min
Anticipated Discharge: > 48 hours
Subjective/Interval History
-
Date of Service:
Feels anxious
Objective Data
-
Labs:
Laboratory Results
09/26/24 09/26/24 09/26/24
03:08 08:39 10:20
PT 18.7 H
INR 1.54
APTT 150.7 H* 84.0 H
Sodium 135
Potassium 4.3
Chloride 103
Carbon Dioxide 26
BUN 9
Creatinine 0.6
Glucose 94
Calcium 9.5
09/26/24
17:00
PT
INR
APTT Pending
Sodium
Potassium
Chloride
Carbon Dioxide
BUN
Creatinine
Glucose
Calcium
Vital Signs:
Vital Signs
Temp Pulse Resp BP Pulse Ox
98.3 F 139 18 136/98 98
09/26/24 11:43 09/26/24 11:43 09/26/24 11:43 09/26/24 11:43 09/26/24 11:43
I&O
09/25/24 09/26/24 09/27/24
06:59 06:59 06:59
Intake Total 480 / 480 1680 / 1680
Balance 480 / 480 1680 / 1680
Review of Systems
-
History Source: Patient
Respiratory: Reports Cough and Trouble Breathing
Physical Exam
-
General: Well Developed, Well Nourished and Conversant
HEENT: Nose Appears Normal and Ears Appear Normal
Respiratory: Rhonchi and Decreased Breath Sounds
Cardiac: Regular Rhythm, S1/S2 and Tachycardic
GI: Soft, Nontender and Nondistended
Skin: Warm and Dry
Neuro: Awake and Alert
Psych: Anxious
[2024-09-26] MEDS: CARDIZEM 125 IV ×2 (13:00→20:10)
[2024-09-26 13:36] LABS: Troponin I < 0.012 ng/ml
--- NOTE | 2024-09-26 14:20 | PTCARENOTE ---
Patient received to IVU for Cardizem drip with titration. HR 150-160. Cardizem rate adjusted per protocol, currently at 15mg/hr, HR 132, BP 128/80, oxygen 3 liters NS 98%. Orthopneic, right upper and right lower inspiratory and expiratory wheezes,
hoarse voice, harsh cough with expiratory stridor. oxygen at 3 liters NC 98%. lower legs brown/red thick skin. Heparin gtt infusing at 1100 units/hr. Poor appetite, consult nutrition, takes ensure at home. She is AO x3, anxious, verbal but
cooperative. Daughter at bedside, call balderas in reach
--- NOTE | 2024-09-26 15:42 | W.PN.PUL3 ---
Today's Communication / Plan
-
Cardizem drip with goal HR <110
Monitor for hemoptysis, especially while on heparin drip
Recommend cardiology consult to help manage the rapid A-fib
I am concerned that this malignancy which is suspected to be invading her left atrium could be contributing to her arrhythmia
Goals of care discussion is essential as she could continue to deteriorate; recommend consult to oncology + palliative care medicine and possibly arrange a family meeting if needed
IR consult for transthoracic needle aspiration or liver biopsy which would be the least invasive way to obtain tissue
Pulmonary service will continue to follow along
Assessment
-
84-year-old female with history of protein C deficiency, DVT, stroke/cerebral aneurysm in , presents with 30 pound weight loss, hemoptysis, cough for many months, now with increased shortness of breath and emesis. CT imaging reveals 12.3 cm
right lower lobe mass with invasion into the left atrium, right hepatic lobe and adrenal gland with multiple pulmonary metastases
12.3 cm right lung mass with invasion into the liver, mediastinum
Subjective dyspnea, cough x 10 months
Hemoptysis
30 pound weight loss
Bilious emesis
Questionable schizophrenia/bipolar disorder
Rapid A-fib now requiring Cardizem drip
Conditions present prior to admission
History of protein C deficiency
DVT, stroke
On chronic Coumadin therapy
Seizure disorder
GERD
Chronic venous stasis changes
Plan/recommendations
At this time, patient appears to be comfortable. I do hear wheezing + stridor today on 09/26, but she still appears to be comfortable
Dr. Benites had reviewed CT imaging at length with patient and daughter
Concerning for underlying malignancy
Moving forward
Remains off Coumadin
Heparin started per primary service as bridge
Consulted interventional radiology for transthoracic lung biopsy, possible liver biopsy
Timing to be determined
Quantify hemoptysis -she currently denies any bloody phlegm as of 09/26; continue to closely monitor especially while on heparin drip
Continue Cardizem drip with goal HR <110
Recommend cardiology consult
I am concerned that this malignancy which is suspected to be invading her left atrium could be contributing to her arrhythmia today
Goals of care discussion is essential as she could continue to deteriorate; recommend consult to oncology + palliative care medicine and possibly arrange a family meeting if needed
Patient aware of suspected cancer diagnosis. She would like to proceed with least a biopsy. This was confirmed by daughter at bedside with Dr. Benites
She is aware that if found to have metastatic cancer, chemotherapy would be the next step. She proceeded to state that she would not want chemotherapy
This will be an ongoing discussion
Dr. Benites reviewed with interventional radiology. Consult placed
Echocardiogram performed on 09/25/2024 showing preserved LVEF 60 to 65% with normal regional wall motion, mild concentric LVH, normal RV size/function, with moderate MR, trace AI and normal PASP at 20-25 mmHg
Would advise ongoing discussion regarding goals of care. Patient presently is full code
Given description of potential invasion into the mediastinum, atrium, encouraged ongoing discussion regarding CODE STATUS
Will follow
Total time spent today was 37 minutes for this encounter. Time includes reviewing laboratory test/imaging results, reviewing pertinent medical records, obtaining and reviewing medical history, performing an appropriate exam, ordering medications,
tests and procedures. Time also includes documentation of this encounter, coordinating patient care and communicating with other healthcare professionals. Total time does not include separately billed tests performed on this date of service.
Patient was seen and evaluated on 09/26/2024
Subjective Data
-
Date of Service:
Date of Service: September 26, 2024
Chief Complaint: Pulmonary Follow Up
Subjective:
Patient seen and evaluated today at bedside. Endorses a cough and says she is breathing okay. She remains tangential with her remarks. Heart rate 93, BP 121/70 and breathing comfortably on room air saturating 95%. She developed rapid A-fib today
and was transferred to the IVU, and is on Cardizem drip at 15 mg/h as well as heparin drip. She currently denies chest pain, KAPLAN, nausea, fevers or chills.
Review of Systems
General: Other (Negative unless mentioned above)
Objective Data
Data Reviewed
Vital Signs / I&O / Oxygen:
Vital Signs
Temp Pulse Resp BP Pulse Ox
97.8 F 93 16 168/99 95
09/26/24 07:31 09/26/24 07:31 09/26/24 07:31 09/26/24 07:31 09/26/24 07:31
Intake and Output
09/25/24 09/26/24 09/27/24
06:59 06:59 06:59
Intake Total 480 / 480 1680 / 1680
Balance 480 / 480 1680 / 1680
SaO2 95
Nasal Cannula flow liters per 2
minute
Physical Exam
General: Respiratory Distress (negative), Comfortable, Chills (negative) and Sweats (negative)
HEENT: Normocephalic and Anicteric
Cardiovascular: Irregular Rhythm (Irregularly irregular) and Peripheral Edema (negative)
Respiratory: Wheeze (Bilaterally), Crackles (Bilateral), Rhonchi (negative) and Stridor (Bilaterally mainly in the upper airways)
GI: Soft, Non Distended, Non Tender and Normal Bowel Sounds
Neurology: Awake, Alert, Tremors (negative) and Other (Tangential + rapid speech)
Skin: Warm, Dry, Cyanosis (negative) and Jaundice (negative)
Labs/Micro/Reports
Lab Data
09/25/24 08:42
09/26/24 08:39
Laboratory Results
09/25/24 09/25/24 09/26/24
06:37 20:25 03:08
PT
INR
APTT 33.0 99.8 H 150.7 H*
09/26/24 09/26/24
08:39 10:20
PT 18.7 H
INR 1.54
APTT 84.0 H
Microbiology
09/25/24 06:12 Nose MRSA Screen - Final
No Methicillin Resistant Staphylococcus aureus isolated.
--- NOTE | 2024-09-26 18:18 | PTCARENOTE ---
Patent forgetful, short term memory impaired, bed alarm Audible, remains anxious. A-fib HR 103 on Cardizem gtt at 15 mg/hr. Some fecal incontinence, small pineda smears wearing pads causing her more anxiety. Her skin around her rectum is excoriated,
barrier cream applied. She has a harsh non-productive cough, hoarse voice with coughing fits. Dyspneic with activity, audible stridor, oxygen at 3 liters NC, humidified, wheezes on the right side, POX 99%. Insisting of walking to the bathroom,
offered commode but refused. Patients room is close to the nurses station, call balderas in reach
[2024-09-26 18:27] LABS: APTT 66.1 Sec (23.4-35.0)
[2024-09-26 18:38] LABS: Troponin I 0.015 ng/ml
[2024-09-26] MEDS: ULTRAM 50 MG PO (22:18)
[2024-09-27] VITALS (7 sets, daily range): BP systolic 120–143; BP diastolic 68–91; BMI 25.2
[2024-09-27] MEDS: ANESTHETIC LOZENGE 1 LOZENGE PO ×2 (01:36→06:21)
[2024-09-27 01:38] LABS: APTT 110.2 Sec (23.4-35.0)
--- NOTE | 2024-09-27 01:57 | PTCARENOTE ---
Patient received in A-fib, rate 80's- low 100's - at beginning of shift, Cardizem gtt infusing at 15 mg/hr. Rate turned down to 10 mg/hr at 0033 for HR maintaining 60's-70's, still A-fib. Then pt. converted to NSR at 0118 and has remained in
since, rate 70's-80's. EKG completed. Current HR 80's, will attempt to titrate Cardizem down as per protocol. Otherwise pt. OOB to use bathroom earlier, generally anxious about everything. KATZ with lung sounds diminished on right, crackles left
base. RA pulse ox 95-96% - pt. encouraged to use O2 when SOB but she refuses, states it makes her nose runny. Pt. currently sleeping.
[2024-09-27] MEDS: SYNTHROID 75 MCG PO (06:05)
[2024-09-27] MEDS: CARDIZEM 125 IV (06:05)
[2024-09-27 06:42] LABS: Hematocrit 36.2 % (37.0-47.0); Hemoglobin 11.9 g/dL (12.0-16.0); Mean Corp Hgb Conc. 32.9 g/dL (33.0-37.0); Mean Corpuscular Hgb 26.1 pg (27.0-31.0); Mean Corpuscular Volume 79.4 fL (81.0-99.0); Mean Platelet Volume 9.8 fL (7.4-10.4); Platelet Count 241 10^3/uL (130-400); Red Blood Cell Count 4.56 10^6/uL (4.20-5.40); Red Cell Dist. Width 16.8 % (11.5-14.5); White Blood Cell Count 8.7 10^3/uL (4.8-10.8)
[2024-09-27 06:53] LABS: PT 17.4 Sec (11.4-14.6)
[2024-09-27 06:54] LABS: APTT 107.2 Sec (23.4-35.0)
[2024-09-27 07:07] LABS: Troponin I 0.017 ng/ml
[2024-09-27 07:40] LABS: Blood Urea Nitrogen 11 mg/dl (7-17); Calcium 9.4 mg/dl (8.4-10.2); Carbon Dioxide 22 mmol/L (22-30); Chloride 104 mmol/L (98-107); Estimated Creatinine Clearance 64 ml/min; Glucose 108 mg/dl (70-99); Magnesium 1.8 mg/dl (1.6-2.3); Sodium 132 mmol/L (135-145); eGFR > 60.00
[2024-09-27] MEDS: TESSALON PERLES 200 MG PO ×3 (08:01→22:39)
[2024-09-27] MEDS: PROTONIX 40 MG PO (08:01)
--- NOTE | 2024-09-27 08:40 | W.PN.HOSP.TC ---
Today's Communication/Plan
-
Now on normal sinus. Dilt gtt stopped. Possible IR procedure tomorrow.
Assessment / Plan
Assessment / Plan
84 yo F with PMH significant for Protein C Deficiency who presented to ED for evaluation of cough, SOB and weight loss. History obtained from patient and her daughter at bedside.
Patient has had ongoing cough for about 8 months or so. This has become increasingly more frequent and harsh. She has occasional paroxysms of cough with 'emesis' - though it is usually of mucoid secretions. She has had streaks of blood / clots
noted in the mucus more recently. Patient has been notably short of breath with activity for the past month or so. This too has been steadily progressive and daughter notes that yesterday she could barely walk due to SOB. She denies any pain in the
chest, back, etc.
No fevers / chills. No known sick contacts.
Patient has had very poor appetite x several months as well and has lost about 30 lbs in the past 6 months.
Patient has been recently evaluated by ENT and GI in regards to her cough - with no clear diagnosis / etiology discovered.
She was seen on DOA by her PCP and referred to the ED for further evaluation. There is noted some concern for psychiatric disturbance / behaviors in PCP correspondence.
CT CAP:
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
the right adrenal gland, and the left atrium.
Multiple pulmonary metastases.
Fluid attenuation hepatic lesions favored to represent cysts, but hepatic metastases are not completely excluded.
A/P & Hospital course by problem:
1. Pulmonary Mass(es) and Acute hypoxic Respiratory Insufficiency secondary to the above
Large RLL mass with collapse / atelectasis of RML and local extension / invasion including the liver, R adrenal and L atrium.
Additional smaller lesions in the b/l upper lobes.
Pulmonary evaluation for additional recommendations.
Will need tissue sampling / pathology with either Pulm / FOB or IR if tolerable
IR consulted for biopsy
Continue to Hold Coumadin (see below).
Oncology eval following tissue diagnosis, if tissue diagnosis is possible
Checked echo given that the CT report noted likely cancer invasion to left atrium.
Echo ok.
2. Mental Status Change - resolved this am
Not clear how chronic behavior issues are - but not formally evaluated / diagnosed by Psych yet and no mention of this on prior visits here.
Given apparent malignancy, check MRI brain with contrast to rule out metastatic lesions therein. MRI pending
Zyprexa PRN for agitation.
3. Rapid Afib - new issue - resolved
Started IV dilt gtt, stopped this am
4. Protein C Deficiency - Chronic
5. History of cerebral thrombosis many years ago (1970s) and RLE DVT (1980s).
[employer] on Coumadin (INR goal 2.5 - 3.5), which was held acutely.
heparin bridge while coumadin held
6. Hypothyroidism
Continue current T4 replacement.
Update TFTs.
7. GERD - chronic
Continue daily PPI.
DVT Prophylaxis: [employer] Coumadin on hold, on heparin bridge
Code Status: Full
total time spent 51 min
Anticipated Discharge: > 48 hours
Subjective/Interval History
-
Date of Service: September 27, 2024
Feels better today then yesterday
Objective Data
-
Labs:
Laboratory Results
09/27/24 09/27/24 09/27/24
01:10 06:34 06:34
WBC 8.7
Hgb 11.9 L
Hct 36.2 L
Plt Count 241
PT Cancelled 17.4 H
INR Cancelled
APTT 110.2 H
Sodium
Potassium
Chloride
Carbon Dioxide
BUN
Creatinine
Glucose
Calcium
09/27/24
06:34
WBC
Hgb
Hct
Plt Count
PT
INR 1.40
APTT 107.2 H
Sodium 132 L
Potassium 4.0
Chloride 104
Carbon Dioxide 22
BUN 11
Creatinine 0.6
Glucose 108 H
Calcium 9.4
Vital Signs:
Vital Signs
Temp Pulse Resp BP Pulse Ox
98.3 F 77 20 129/70 93
09/27/24 07:49 09/27/24 05:00 09/27/24 07:49 09/27/24 04:55 09/27/24 07:49
I&O
09/26/24 09/27/24 09/28/24
06:59 06:59 06:59
Intake Total 1680 / 1680 240 / 240
Balance 1680 / 1680 240 / 240
Review of Systems
-
History Source: Patient
All other systems: Reviewed and negative
EENT: Reports Sore Throat and Bloody Nose
Physical Exam
-
General: Well Developed, Well Nourished, No Apparent Distress, Comfortable and Conversant
HEENT: Nose Appears Normal and Ears Appear Normal
Respiratory: Crackles and Decreased Breath Sounds
Cardiac: Regular Rhythm and S1/S2
GI: Soft, Nontender and Nondistended
Musculoskeletal: No Clubbing, No Cyanosis and Other (signs of chronic hemostasis on lower leg)
Skin: Warm and Dry
Psych: Calm
Data Reviewed
-
Labs: Labs Reviewed by me
[2024-09-27] MEDS: HEPARIN 25000 UNITS/250 ML IV (11:29)
--- NOTE | 2024-09-27 11:32 | W.PN.UPDATE ---
Update Note
Progress Note Update
Patient is in better mood, less angry and is hopefull that treatment would help. She understands the diagnosis was a shoch to her but now is able to organize her thoughts and understands what needs to be done to further establish the diagnosis and
decide potential treatment options.
Affect and mood are stable, denies significant depression, hopelessness or suicidal thoughts.
Supportive intervention given.
--- NOTE | 2024-09-27 12:05 | CON.CAR ---
Consultation
Consultation Request
Date/Time Consultation Requested: September 27, 2024
Date/Time Consultation Performed: September 27, 2024
Requesting Provider: Hospitalist
Performing Provider: Dr. Mario Holley
Reason for Consultation: Symptomatic atrial fibrillation and rapid ventricular response
Medical History
-
Chief Complaint: Shortness of breath, progressive
History of Present Illness:
She presented to the emergency department [facility] September 24, 2024 with progressive dyspnea, worsening cough as well as progressive weight loss. This has been progressive over the course of approximately 8 months. Significant medical
history includes protein C deficiency, DVT, notation of stroke/cerebral aneurysm in 1970s.
CT imaging has demonstrated a 12.3 cm right lower lobe mass with invasion into the left atrium, right hepatic lobe and adrenal gland as well as multiple pulmonary metastases.
During this hospital stay she has developed atrial fibrillation with rapid ventricular rate subsequently spontaneously converting to sinus rhythm.
Cardiology is consulted regarding management of atrial fibrillation.
Of note, she had been anticoagulated with warfarin as an outpatient although INR subtherapeutic at 1.84 on hospital presentation, subsequently started on intravenous heparin while warfarin on hold.
CT chest abdomen and pelvis 09/24/2024:
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
the left atrium.
- Multiple pulmonary metastases.
- Fluid attenuation hepatic lesions favored to represent cysts, but hepatic metastases are not completely excluded.
Echocardiogram September 25, 2024 finds normal left ventricular size and function with no regional wall motion abnormality. Normal right ventricular size and function. There is moderate mitral regurgitation. Mild tricuspid regurgitation. There is
normal left atrial size. There is a trace pericardial effusion. There is no mass seen abutting the heart.
ECG September 24, 2024 finds sinus rhythm with incomplete right bundle branch block and nonspecific ST and T wave abnormalities
ECG September 27, 2024 finds sinus rhythm with incomplete right bundle branch block and nonspecific ST and T wave abnormalities
Troponin values <0.012, 0.015, 0.020, 0.017
TSH 1.71
Past medical history:
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
DVT
Stroke/cerebral aneurysms 1970s
Hypothyroidism
Gastroesophageal reflux disease
Social History
Tobacco: Non-Smoker
Alcohol: None
Drug: None
Family History
Family History: Reviewed & Not Pertinent
Allergies / Home Medications
Allergy/AdvReac Type Severity Reaction Status Date / Time
Sulfa (Sulfonamide Allergy Unknown Verified 09/24/24 15:51
Antibiotics)
�Medication �Instructions �Recorded �Confirmed �Type
levothyroxine 75 mcg tablet 75 mcg PO DAILY@06 Thyroid 01/04/21 09/26/24 History
Lactobac no.2-Bifidobac no.1-S. 1 cap PO DAILY Supplement 01/02/24 09/24/24 History
thermo 112.5 billion cell capsule
(Visbiome)
calcium carbonate (Calcium 600) 600 mg PO DAILY Supplement 01/02/24 09/24/24 History
cyanocobalamin 2 mg-levomefolate 1 tab PO DAILY Supplement 01/02/24 09/24/24 History
brittanie 1.13 mg-pyridoxine 25 mg
tablet (Foltx)
dexlansoprazole 30 mg 30 mg PO QPM Gastrointestinal Issue 01/02/24 09/24/24 History
capsule,biphase delayed release
furosemide 20 mg tablet 20 mg PO DAILY Fluid 01/02/24 09/24/24 History
Retention/Swelling
gabapentin 300 mg capsule 300 mg PO TID Pain 01/02/24 09/24/24 History
warfarin 2.5 mg tablet 5 mg PO MOFR@1930 Blood Clot 01/02/24 09/24/24 History
Prevention/Tx
warfarin 2.5 mg tablet (Jantoven) 2.5 mg PO SUTUWETHSA@1930 Blood 01/02/24 09/24/24 History
Clot Prevention/Tx
doxycycline hyclate 100 mg capsule 100 mg PO BID #20 caps 01/03/24 09/24/24 Rx
tramadol 50 mg tablet 50 mg PO HS Pain 09/26/24 09/26/24 History
Review of Systems
-
History Source: Patient
All other systems: Negative unless noted
Constitutional: Weight Loss and Fatigue
EENT: Sore Throat
Respiratory: Cough and Trouble Breathing
Cardiac: Palpitations
Abdomen/GI: Anorexia
: No Symptoms
Musculoskeletal: No Symptoms
Skin: No Symptoms
Neurological: No Symptoms
Endocrine: No Symptoms
Hematologic/Lymphatic: No Symptoms
Physical Exam
Vital Signs
Temp Pulse Resp BP Pulse Ox
97.8 F 68 20 120/73 92
09/27/24 11:21 09/27/24 08:00 09/27/24 11:21 09/27/24 07:51 09/27/24 11:21
Lab Results
09/27/24 06:34
09/27/24 06:34
Troponin I 0.017 ng/ml 09/27/24 06:34
Physical Exam
General: Well Developed, Well Nourished, No Apparent Distress and Comfortable
HEENT: Normocephalic, Anicteric and Moist Mucous Membranes
Respiratory: Wheezes (Bilateral upper lobe wheezing on expiration, no rales)
Cardiac: S1/S2 (No S3 no S4, grade 2/6 apical holosystolic murmur, no rub) and Regular Rhythm
Breast: Deferred by me
GI: Soft, Non Tender, Non Distended and Normal Bowel Sounds
Rectal: Deferred by Provider
Musculoskeletal: No Clubbing, No Cyanosis and Edema (+1 pitting pretibial edema bilaterally)
Skin: Warm and Dry
Neuro: Awake, Alert, Oriented and AO x 3
Psych: Calm
Impression / Plan
-
Assessment:
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
Paroxysmal atrial fibrillation with rapid ventricular rate, spontaneously converting to sinus rhythm
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
DVT
Stroke/cerebral aneurysms 1970s
Hypothyroidism
Gastroesophageal reflux disease
CT chest abdomen and pelvis 09/24/2024:
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
the left atrium.
- Multiple pulmonary metastases.
- Fluid attenuation hepatic lesions favored to represent cysts, but hepatic metastases are not completely excluded.
Echocardiogram September 25, 2024 finds normal left ventricular size and function with no regional wall motion abnormality. Normal right ventricular size and function. There is moderate mitral regurgitation. Mild tricuspid regurgitation. There is
normal left atrial size. There is a trace pericardial effusion. There is no mass seen abutting the heart.
ECG September 24, 2024 finds sinus rhythm with incomplete right bundle branch block and nonspecific ST and T wave abnormalities
ECG September 27, 2024 finds sinus rhythm with incomplete right bundle branch block and nonspecific ST and T wave abnormalities
Troponin values <0.012, 0.015, 0.020, 0.017
TSH 1.71
Recommendations:
Regarding atrial fibrillation, paroxysmal self-limited.
[id number] score is 5 (Age, h/o CVA, F) and now additionally with suspected malignancy. Also known protein C deficiency
She is at high risk of thromboembolic events.
As an outpatient maintained on warfarin and now on heparin bridging as warfarin is on hold.
Would continue heparin bridging as long as there is no significant bleeding complications.
Given suspected malignancy with metastases, brain MRI has been ordered to assess for any brain lesions which may alter recommendations regarding anticoagulation
Await brain MRI findings.
Should she recur with symptomatic paroxysmal atrial fibrillation rhythm control attempt would be reasonable and in her case I would recommend amiodarone.
She does have a trace pericardial effusion on echocardiogram which given her suspected diagnosis of chest malignancy with local invasion as well as metastases could certainly represent a malignant pericardial effusion. The effusion is trace�small
and currently not causing any hemodynamic consequence.
Echocardiogram does not demonstrate any clear mass affect/impingement on any cardiac structure.
No new cardiac recommendations at this time but we will continue to follow along with you.
Total time 75 minutes
Data Reviewed
-
EKG: Tracing Personally Visualized and interpreted
Radiology: Image Personally Visualized and interpreted
CT Scan: Report Reviewed by me
Medical Tests (Nuc Med, Echo etc): Image Personally Visualized and interpreted and Discussed with Patient
Labs: Labs Reviewed by me
Old Records: Requested
--- NOTE | 2024-09-27 15:27 | PTCARENOTE ---
Pt received this am in SR, rate in the 70's to 90's. IV cardizem discontinues as ordered at 0830. IV heparin infusing as ordered. Pt taken down to MRI and unable to proceed due to anxiety and fear of coughing. Pt denies any pain or sob at rest. Room
air sat 95%.
--- NOTE | 2024-09-27 16:50 | W.PN.PUL3 ---
Today's Communication / Plan
-
Now in NSR and off Cardizem drip
IR consulted for transthoracic needle aspiration or liver biopsy which would be the least invasive way to obtain tissue
NPO past midnight for IR biopsy tomorrow
Monitor for hemoptysis (no reports of hemoptysis over the last 2 days)
Cardiology consulted today (09/27) given her rapid A-fib on 09/26
I am concerned that this malignancy which is suspected to be invading her left atrium could be contributing to her arrhythmia
Pulmonary service will continue to follow along
Assessment
-
84-year-old female with history of protein C deficiency, DVT, stroke/cerebral aneurysm in , presents with 30 pound weight loss, hemoptysis, cough for many months, now with increased shortness of breath and emesis. CT imaging reveals 12.3 cm
right lower lobe mass with invasion into the left atrium, right hepatic lobe and adrenal gland with multiple pulmonary metastases
12.3 cm right lung mass with invasion into the liver, mediastinum
Subjective dyspnea, cough x 10 months
Hemoptysis
30 pound weight loss
Bilious emesis
Questionable schizophrenia/bipolar disorder
Rapid A-fib requiring Cardizem drip --> now in NSR and off cardizem gtt
Conditions present prior to admission
History of protein C deficiency
DVT, stroke
On chronic Coumadin therapy
Seizure disorder
GERD
Chronic venous stasis changes
Plan/recommendations
At this time, patient appears to be comfortable. There was wheezing + stridor on 09/26, but as of 09/27 these have resolved.
Dr. Benites had reviewed CT imaging at length with patient and daughter
Concerning for underlying malignancy
Moving forward
Remains off Coumadin
Heparin started per primary service as bridge
Consulted interventional radiology for transthoracic lung biopsy, possible liver biopsy
Keep NPO p MN for biopsy tomorrow (09/28)
Quantify hemoptysis (she denies bloody phlegm as of 09/26); continue to closely monitor especially while on heparin drip
Pt now in NSR and off Cardizem drip
Cardiology consult placed
I am concerned that this malignancy which is suspected to be invading her left atrium could be contributing to her rapid A-fib she had on 09/26
Patient aware of suspected cancer diagnosis. She would like to proceed with least a biopsy. This was confirmed by daughter at bedside with Dr. Benites and also Dr. Hernandez (on 09/27)
She is aware that if found to have metastatic cancer, chemotherapy would be the next step. She proceeded to state that she would not want chemotherapy
This will be an ongoing discussion
Dr. Benites reviewed with interventional radiology. Consult placed
Echocardiogram performed on 09/25/2024 showing preserved LVEF 60 to 65% with normal regional wall motion, mild concentric LVH, normal RV size/function, with moderate MR, trace AI and normal PASP at 20-25 mmHg
Would advise ongoing discussion regarding goals of care. Patient presently is full code
Given description of potential invasion into the mediastinum, atrium, encouraged ongoing discussion regarding CODE STATUS
Will follow
Total time spent today was 41 minutes for this encounter. Time includes reviewing laboratory test/imaging results, reviewing pertinent medical records, obtaining and reviewing medical history, performing an appropriate exam, ordering medications,
tests and procedures. Time also includes documentation of this encounter, coordinating patient care and communicating with other healthcare professionals. Total time does not include separately billed tests performed on this date of service.
Subjective Data
-
Date of Service:
Date of Service: September 27, 2024
Chief Complaint: Pulmonary Follow Up
Subjective:
Patient was seen and evaluated today at bedside. Patient's daughter, Selma, present at bedside and all questions were answered. Patient currently on room air saturating 94%. She denies chest pain, KAPLAN, nausea, fevers or chills. Patient is now in
normal sinus rhythm and is off the Cardizem drip.
Review of Systems
General: Other (Negative unless mentioned above)
Objective Data
Data Reviewed
Vital Signs / I&O / Oxygen:
Vital Signs
Temp Pulse Resp BP Pulse Ox
98.3 F 68 20 120/73 91
09/27/24 07:49 09/27/24 08:00 09/27/24 07:49 09/27/24 07:51 09/27/24 07:51
Intake and Output
09/26/24 09/27/24 09/28/24
06:59 06:59 06:59
Intake Total 1680 / 1680 240 / 240
Balance 1680 / 1680 240 / 240
SaO2 91
Nasal Cannula flow liters per 3
minute
Physical Exam
General: Respiratory Distress (negative), Comfortable, Chills (negative) and Sweats (negative)
HEENT: Normocephalic and Anicteric
Cardiovascular: S1-S2, Regular Rhythm and Peripheral Edema (negative)
Respiratory: Clear, Wheeze (negative), Crackles (negative), Rhonchi (negative), Non-Labored Respirations and Stridor (negative)
GI: Soft, Non Distended, Non Tender and Normal Bowel Sounds
Neurology: Awake, Alert and Tremors (negative)
Skin: Warm, Dry, Cyanosis (negative) and Jaundice (negative)
Labs/Micro/Reports
Lab Data
09/27/24 06:34
09/27/24 06:34
Laboratory Results
09/26/24 09/27/24 09/27/24
18:02 01:10 06:34
PT Cancelled
INR
APTT 66.1 H 110.2 H
09/27/24 09/27/24
06:34 06:34
PT 17.4 H
INR Cancelled 1.40
APTT 107.2 H
Microbiology
09/25/24 06:12 Nose MRSA Screen - Final
No Methicillin Resistant Staphylococcus aureus isolated.
[2024-09-27] MEDS: ZYPREXA 2.5 MG PO (19:54)
--- NOTE | 2024-09-27 21:01 | PTCARENOTE ---
Pt. remains in NSR this shift. Extremely anxious at change of shift, voicing fear of impending biopsy in AM. Sits on edge of bed and hyperventilates, which quickly dissipates once pt. is engaged in conversation and emotional support is given.
Pulse ox on RA 93%. Pt. agreeable to trying Zyprexa PRN - dose given and she has remained calm for past hour.
[2024-09-27] MEDS: ULTRAM 50 MG PO (22:39)
[2024-09-28] MEDS: ANESTHETIC LOZENGE 1 LOZENGE PO (01:39)
[2024-09-28 03:15] VITALS: BP 136/76
--- NOTE | 2024-09-28 03:46 | PTCARENOTE ---
Pt. agitated again at 2300, calling daughter on phone asking her to 'get her out of here' saying she doesn't want biopsy, threatening to call hospital security or the police (pt. could be heard yelling on phone from room and daughter called nurse's
station to inform me). When checked on pt. with rapid speech, stating she doesn't understand how this is happening to her, reiterating her experience in CT scan on admission, her inability to go through with MRI yesterday, and how fearful she is in
general. Order for Ativan x 1 PO obtained and offered to patient but she refused, stating she's not taking anymore medicine because it 'doesn't work'. Has been calm since, mostly sleeping. Wakes up coughing at times and anxiety starts again but pt.
has been receptive to conversing with me and she calms down quickly. Updated pt.'s daughter, Selma, via phone.
[2024-09-28 05:07] LABS: INR 1.22; PT 15.7 Sec (11.4-14.6)
[2024-09-28 05:09] LABS: APTT 87.7 Sec (23.4-35.0)
[2024-09-28] MEDS: HEPARIN 25000 UNITS/250 ML IV (05:27)
[2024-09-28 05:59] LABS: Blood Urea Nitrogen 8 mg/dl (7-17); Calcium 9.3 mg/dl (8.4-10.2); Carbon Dioxide 23 mmol/L (22-30); Chloride 106 mmol/L (98-107); Estimated Creatinine Clearance 64 ml/min; Glucose 88 mg/dl (70-99); Potassium 3.9 mmol/L (3.5-5.1); Sodium 133 mmol/L (135-145); eGFR > 60.00
[2024-09-28] MEDS: SYNTHROID 75 MCG PO (06:17)
[2024-09-28 07:09] VITALS: BP 148/94
[2024-09-28] MEDS: ZYPREXA 2.5 MG PO ×2 (08:02→21:28)
[2024-09-28] MEDS: TESSALON PERLES PO ×2 (08:09→17:09)
[2024-09-28] MEDS: PROTONIX PO (08:09)
--- NOTE | 2024-09-28 09:04 | W.PN.CARDCBS ---
Today's Communication / Plan
-
Continue heparin
Plan for liver biopsy today
Rhythm remains sinus. Heparin to Coumadin as long as no active bleeding issues or brain metastases
Monitor telemetry
Impression / Plan
-
Assessment:
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
Paroxysmal atrial fibrillation with rapid ventricular rate, spontaneously converting to sinus rhythm
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
DVT
Stroke/cerebral aneurysms 1970s
Hypothyroidism
Gastroesophageal reflux disease
CT chest abdomen and pelvis 09/24/2024:
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
the left atrium.
- Multiple pulmonary metastases.
- Fluid attenuation hepatic lesions favored to represent cysts, but hepatic metastases are not completely excluded.
Echocardiogram September 25, 2024 finds normal left ventricular size and function with no regional wall motion abnormality. Normal right ventricular size and function. There is moderate mitral regurgitation. Mild tricuspid regurgitation. There is
normal left atrial size. There is a trace pericardial effusion. There is no mass seen abutting the heart.
ECG September 24, 2024 finds sinus rhythm with incomplete right bundle branch block and nonspecific ST and T wave abnormalities
ECG September 27, 2024 finds sinus rhythm with incomplete right bundle branch block and nonspecific ST and T wave abnormalities
Troponin values <0.012, 0.015, 0.020, 0.017
TSH 1.71
Recommendations:
She has concerns regarding cough and shortness of breath. According to notes from yesterday IR consulted for transthoracic needle aspiration or liver biopsy which would be the least invasive way to obtain tissue.
Original cardiac consult for self-limited paroxysmal rapid atrial fibrillation (on 09/26) for which she remains in sinus rhythm. Telemetry independently reviewed by me and currently in sinus rhythm. Echo without obvious invasion of left atrium.
Monitor for hemoptysis (no reports of hemoptysis over the last 2 days)
I am concerned that this malignancy which is suspected to be invading her left atrium could be contributing to her arrhythmia
[id number] score is 5 (Age, h/o CVA, F) and now additionally with suspected malignancy. Also known protein C deficiency for which she is on chronic warfarin
She is at high risk of thromboembolic events.
If she recurs with symptomatic paroxysmal atrial fibrillation rhythm control attempt would be reasonable and in her case I would recommend amiodarone.
As an outpatient maintained on warfarin and now on heparin bridging as warfarin is on hold.
Would continue heparin bridging as long as there is no significant bleeding complications.
Suspected malignancy and given suspected malignancy with metastases, brain MRI has been ordered to assess for any brain lesions which may alter recommendations regarding anticoagulation
Await brain MRI. Await biopsy.
She does have a trace pericardial effusion on echocardiogram which given her suspected diagnosis of chest malignancy with local invasion as well as metastases could certainly represent a malignant pericardial effusion. The effusion is trace�small
and currently not causing any hemodynamic consequence.
Echocardiogram does not demonstrate any clear mass affect/impingement on any cardiac structure.
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
Subjective
Date of Service: September 28, 2024
She has cough and shortness of breath. No chest pain.
Objective
Labs:
09/27/24 06:34
09/28/24 04:51
Labs
Hgb 11.9 g/dL (12.0-16.0) L 09/27/24 06:34
Hct 36.2 % (37.0-47.0) L 09/27/24 06:34
Plt Count 241 10^3/uL (130-400) 09/27/24 06:34
PT 15.7 Sec (11.4-14.6) H 09/28/24 04:51
INR 1.22 09/28/24 04:51
APTT 87.7 Sec (23.4-35.0) H 09/28/24 04:51
Sodium 133 mmol/L (135-145) L 09/28/24 04:51
Potassium 3.9 mmol/L (3.5-5.1) 09/28/24 04:51
BUN 8 mg/dl (7-17) 09/28/24 04:51
Creatinine 0.5 mg/dL (0.6-1.0) L 09/28/24 04:51
Glucose 88 mg/dl (70-99) 09/28/24 04:51
Troponins
09/26/24 09/26/24 09/27/24
13:00 18:02 01:10
Troponin I < 0.012 0.015 D 0.020 D
09/27/24
06:34
Troponin I 0.017
Vital Signs and I&O:
Vital Signs
Temp Pulse Resp BP Pulse Ox
98.1 F 90 20 148/94 94
09/28/24 07:10 09/28/24 07:09 09/28/24 07:10 09/28/24 07:09 09/28/24 07:10
Vital Signs
Temp Pulse Resp BP Pulse Ox
98.1 F 90 20 148/94 94
09/28/24 07:10 09/28/24 07:09 09/28/24 07:10 09/28/24 07:09 09/28/24 07:10
Intake & Output
09/26/24 09/27/24 09/28/24 09/29/24
06:59 06:59 06:59 06:59
Intake Total 1680 / 1680 240 / 240 480 / 480
Balance 1680 / 1680 240 / 240 480 / 480
Physical Exam
Physical Exam
General: Well developed, well nourished in NAD.
Heart: Distant heart sounds but regular
Lungs: Rhonchorous breath sounds with cougAbdomen: Normal bowel sounds, soft, non-tender, non-distended.
Extremities: No clubbing, cyanosis and trace edema bilaterally.
Neuro: Grossly nonfocal, awake, alert and oriented x3.
--- NOTE | 2024-09-28 10:59 | W.PN.PUL3 ---
Today's Communication / Plan
-
For biopsy today with interventional radiology.
Recommend goals of care discussions
Monitor for bleeding-quantify hemoptysis on heparin drip-no significant hemoptysis.
Pulmonary will follow briefly.
Assessment
-
84-year-old female with history of protein C deficiency, DVT, stroke/cerebral aneurysm in 1970s, presents with 30 pound weight loss, hemoptysis, cough for many months, now with increased shortness of breath and emesis. CT imaging reveals 12.3 cm
right lower lobe mass with invasion into the left atrium, right hepatic lobe and adrenal gland with multiple pulmonary metastases
12.3 cm right lung mass with invasion into the liver, mediastinum
Subjective dyspnea, cough x 10 months
Hemoptysis
30 pound weight loss
Bilious emesis
Questionable schizophrenia/bipolar disorder
Rapid A-fib requiring Cardizem drip --> now in NSR and off cardizem gtt
Conditions present prior to admission
History of protein C deficiency
DVT, stroke 1970s
On chronic Coumadin therapy
Seizure disorder
GERD
Chronic venous stasis changes
Plan/recommendations
-
From the respiratory status perspective no acute decompensation.
CT chest: Concerning for metastatic possible primary lung malignancy.
-
Remains off Coumadin
Heparin started per primary service as bridge-follow PTT.
Consulted interventional radiology for transthoracic lung biopsy, possible liver biopsy-scheduled for 07/13/2023.
Currently NPO.
Quantify hemoptysis (she denies bloody phlegm as of 09/26); continue to closely monitor especially while on heparin drip
Not significant today 09/28/2024.
I am concerned that this malignancy which is suspected to be invading her left atrium could be contributing to her rapid A-fib she had on 09/26
Echocardiogram performed on 09/25/2024 showing preserved LVEF 60 to 65% with normal regional wall motion, mild concentric LVH, normal RV size/function, with moderate MR, trace AI and normal PASP at 20-25 mmHg
cardiology consulted
Patient aware of suspected cancer diagnosis. She would like to proceed with least a biopsy. This was confirmed by daughter at bedside with Dr. Benites and also Dr. Hernandez (on 09/27)-again Dr. Bass discussed with patient and daughter at the
bedside 09/28/2024.
She is aware that if found to have metastatic cancer, chemotherapy would be the next step.
Unclear if this patient will tolerate any kind of aggressive therapy.
Would advise ongoing discussion regarding goals of care. Patient presently is full code
Given description of potential invasion into the mediastinum, atrium, encouraged ongoing discussion regarding CODE STATUS
High risk situation
Will follow
Subjective Data
-
Date of Service:
Date of Service: September 28, 2024
Chief Complaint: Pulmonary Follow Up
Subjective:
No new complaints
Review of Systems
Cardiopulmonary: Dyspnea (None at rest)
GI: Abdominal Pain (n)
Objective Data
Data Reviewed
Vital Signs / I&O / Oxygen:
Vital Signs
Temp Pulse Resp BP Pulse Ox
98.1 F 90 20 148/94 94
09/28/24 07:10 09/28/24 07:09 09/28/24 07:10 09/28/24 07:09 09/28/24 07:10
Intake and Output
09/27/24 09/28/24 09/29/24
06:59 06:59 06:59
Intake Total 240 / 240 480 / 480
Balance 240 / 240 480 / 480
SaO2 94
Nasal Cannula flow liters per 3
minute
Physical Exam
General: Respiratory Distress (negative), Comfortable, Chills (negative) and Sweats (negative)
HEENT: Normocephalic and Anicteric
Cardiovascular: S1-S2, Regular Rhythm and Peripheral Edema (negative)
Respiratory: Clear, Wheeze (negative), Crackles (negative), Rhonchi (negative), Non-Labored Respirations and Stridor (negative)
GI: Soft, Non Distended, Non Tender and Normal Bowel Sounds
Neurology: Awake, Alert and Tremors (negative)
Skin: Warm, Dry, Cyanosis (negative) and Jaundice (negative)
Labs/Micro/Reports
Lab Data
09/27/24 06:34
09/28/24 04:51
Laboratory Results
09/28/24
04:51
PT 15.7 H
INR 1.22
APTT 87.7 H
Microbiology
09/25/24 06:12 Nose MRSA Screen - Final
No Methicillin Resistant Staphylococcus aureus isolated.
--- NOTE | 2024-09-28 11:07 | CM ---
Reviewed chart. Mrs. Weiss was transferred to IVU. She states prior to admission she resides in the independent section of [facility]. She states she has been there for six years. She states she was independent with ambulation
and adls. Will need to see her current functional level to see if she will have any skilled care needs. Medical work-up in progress. The discharge plan is to return home with [facility] versus SNF/Rehab. if indicated when medically stable.
[2024-09-28 11:27] VITALS: BP 155/93
--- NOTE | 2024-09-28 11:59 | W.PN.HOSP.TC ---
Today's Communication/Plan
-
IR liver biopsy. MRI Brain.
Assessment / Plan
Assessment / Plan
Physical exam:
General: Acutely ill
HEENT: Normocephalic, Atraumatic and Moist Mucous Membranes
Respiratory: Clear to Auscultation; Negative Wheezes, Rales or Rhonchi
Cardiac: Regular Rhythm and S1/S2
GI: Soft, Nontender and Nondistended
Musculoskeletal: No Clubbing, No Cyanosis and No Edema
Neuro: Awake, Alert and Oriented, no neurological deficits
Psych: Anxious
A/P:
84 yo F with PMH significant for Protein C Deficiency who presented to ED for evaluation of cough, SOB and weight loss. History obtained from patient and her daughter at bedside.
Patient has had ongoing cough for about 8 months or so. This has become increasingly more frequent and harsh. She has occasional paroxysms of cough with 'emesis' - though it is usually of mucoid secretions. She has had streaks of blood / clots
noted in the mucus more recently. Patient has been notably short of breath with activity for the past month or so. This too has been steadily progressive and daughter notes that yesterday she could barely walk due to SOB. She denies any pain in the
chest, back, etc.
No fevers / chills. No known sick contacts.
Patient has had very poor appetite x several months as well and has lost about 30 lbs in the past 6 months.
Patient has been recently evaluated by ENT and GI in regards to her cough - with no clear diagnosis / etiology discovered.
She was seen on DOA by her PCP and referred to the ED for further evaluation. There is noted some concern for psychiatric disturbance / behaviors in PCP correspondence.
CT CAP:
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
the right adrenal gland, and the left atrium.
Multiple pulmonary metastases.
Fluid attenuation hepatic lesions favored to represent cysts, but hepatic metastases are not completely excluded.
A/P & Hospital course by problem:
1. Pulmonary Mass(es) and Acute hypoxic Respiratory Insufficiency secondary to the above
Large RLL mass with collapse / atelectasis of RML and local extension / invasion including the liver, R adrenal and L atrium.
Additional smaller lesions in the b/l upper lobes.
Pulmonary evaluation for additional recommendations.
Will need tissue sampling / pathology with either Pulm / FOB or IR if tolerable
IR consulted for biopsy
Continue to Hold Coumadin (see below).
Oncology eval following tissue diagnosis, if tissue diagnosis is possible
Checked echo given that the CT report noted likely cancer invasion to left atrium.
Echo ok.
2. Mental Status Change - resolved this am
Not clear how chronic behavior issues are - Psych input appreciated.
Given apparent malignancy, check MRI brain with contrast to rule out metastatic lesions therein. MRI pending
Zyprexa PRN for agitation.
3. Paroxysmal rapid Afib - new issue - Back in NSR
Off IV dilt gtt. On heparin gtt. Cardiology following.
4. Protein C Deficiency - Chronic
5. History of cerebral thrombosis many years ago (1970s) and RLE DVT (1980s).
THERAPEUTIC STRATEGY LEAD on Coumadin (INR goal 2.5 - 3.5), which was held acutely.
heparin bridge while Coumadin held
6. Hypothyroidism
Continue current T4 replacement.
Update TFTs.
7. GERD - chronic
Continue daily PPI.
DVT Prophylaxis: THERAPEUTIC STRATEGY LEAD Coumadin on hold, on heparin bridge
Code Status: Full
total time spent 51 min
Anticipated Discharge: > 48 hours
Subjective/Interval History
-
Date of Service: September 28, 2024
Patient denies any chest pain or sob. Afebrile. Very anxious.
Objective Data
-
Labs:
Laboratory Results
09/28/24
04:51
PT 15.7 H
INR 1.22
APTT 87.7 H
Sodium 133 L
Potassium 3.9
Chloride 106
Carbon Dioxide 23
BUN 8
Creatinine 0.5 L
Glucose 88
Calcium 9.3
Vital Signs:
Vital Signs
Temp Pulse Resp BP Pulse Ox
97.6 F 90 20 148/94 94
09/28/24 11:27 09/28/24 07:09 09/28/24 11:27 09/28/24 07:09 09/28/24 11:27
I&O
09/27/24 09/28/24 09/29/24
06:59 06:59 06:59
Intake Total 240 / 240 480 / 480
Balance 240 / 240 480 / 480
--- NOTE | 2024-09-28 12:59 | PTCARENOTE ---
Assumed care at 0700. Patient very anxious and agitated. Zyprexa given, refused other PO medications. Was NPO this morning for biopsy, rescheduled for Saturday. Call placed to re-attempt MRI today, awaiting response from department. Lunch ordered,
ate well. Patient less agitated since receiving Zyprexa. Can not lye flat due to shortness of breath. Crackles left base, audible stridor with activity, right lung diminished, comfortable at rest, dyspneic with activity. Walking to the bathroom
assisted. Heparin gtt infusing per JUN, call balderas in reach
[2024-09-28 15:49] VITALS: BP 124/75
[2024-09-28] MEDS: ATIVAN 1 MG IV (18:00)
[2024-09-28] MEDS: NSS (PRESERVATIVE FREE) 0.5 ML IV (18:01)
[2024-09-28 19:13] VITALS: BP 147/91
[2024-09-28] MEDS: ULTRAM 50 MG PO (21:28)
[2024-09-28] MEDS: TESSALON PERLES 200 MG PO (21:28)
[2024-09-28 22:15] VITALS: BP 148/85
--- NOTE | 2024-09-28 23:20 | PTCARENOTE ---
Received pt @ change of shift. AAOx3, BP 147/91, Sinus tach in 100s, other VSS. Pt very anxious. Heparin gtt running @ 1200 units/hr through right AC. Discussed plan of care for evening. Pt verbalizes understanding and agrees to call care team with
needing to get out of bed. Call balderas within reach.
[2024-09-29 02:12] VITALS: BP 131/94
[2024-09-29 02:39] LABS: Hematocrit 38.3 % (37.0-47.0); Hemoglobin 12.4 g/dL (12.0-16.0); Mean Corp Hgb Conc. 32.4 g/dL (33.0-37.0); Mean Corpuscular Hgb 25.9 pg (27.0-31.0); Mean Corpuscular Volume 80.1 fL (81.0-99.0); Platelet Count 244 10^3/uL (130-400); Red Blood Cell Count 4.78 10^6/uL (4.20-5.40); Red Cell Dist. Width 17.3 % (11.5-14.5); White Blood Cell Count 8.2 10^3/uL (4.8-10.8)
[2024-09-29 02:44] LABS: PT 14.5 Sec (11.4-14.6)
[2024-09-29 03:06] LABS: Blood Urea Nitrogen 13 mg/dl (7-17); Calcium 9.8 mg/dl (8.4-10.2); Carbon Dioxide 23 mmol/L (22-30); Chloride 107 mmol/L (98-107); Estimated Creatinine Clearance 64 ml/min; Glucose 109 mg/dl (70-99); Magnesium 1.9 mg/dl (1.6-2.3); Potassium 4.3 mmol/L (3.5-5.1); Sodium 136 mmol/L (135-145); eGFR > 60.00
[2024-09-29 03:59] LABS: APTT 59.4 Sec (23.4-35.0)
[2024-09-29] MEDS: HEPARIN 25000 UNITS/250 ML IV ×2 (04:11→21:04)
[2024-09-29] MEDS: SYNTHROID 75 MCG PO (04:33)
[2024-09-29 06:00] VITALS: BMI 24.7
[2024-09-29 07:38] VITALS: BP 128/85
[2024-09-29] MEDS: TESSALON PERLES 200 MG PO ×2 (08:57→21:31)
[2024-09-29] MEDS: PROTONIX 40 MG PO (08:57)
--- NOTE | 2024-09-29 09:06 | W.PN.HOSP.TC ---
Today's Communication/Plan
-
Heparin drip. IR biopsy tomorrow
Assessment / Plan
Assessment / Plan
Physical exam:
General: Acutely ill
HEENT: Normocephalic, Atraumatic and Moist Mucous Membranes
Respiratory: Clear to Auscultation; Negative Wheezes, Rales or Rhonchi
Cardiac: Regular Rhythm and S1/S2
GI: Soft, Nontender and Nondistended
Musculoskeletal: No Clubbing, No Cyanosis and No Edema
Neuro: Awake, Alert and Oriented, no neurological deficits
Psych: Anxious
A/P:
Right lung mass involving mediastinum and liver:
Plan for IR biopsy tomorrow
On scheduled tramadol and Tylenol as needed
Discussed with daughter today over the phone, [place]
New onset A-fib, paroxysmal:
Back to normal sinus rhythm
On heparin drip
Plan to restart warfarin after biopsy
Echo normal EF. Moderate mitral MR. Trace aortic regurgitation. Mild tricuspid regurgitation. Normal regional wall motion. Mild concentric left ventricular hypertrophy. Normal diastolic function.
Cardiology following
History of DVT/protein C deficiency/drug:
On heparin drip
Plan to restart warfarin after biopsy
Mental status changes:
Back to baseline
Psychiatry evaluated the patient during this hospital stay.
Will discontinue Zyprexa
MRI negative for brain metastasis although limited due to motion
Adjustment disorder with mixed emotional features and anxiety:
Emotional support as needed
Hypothyroidism:
Continue levothyroxine 75 mcg p.o. daily
GERD:
Continue PPI
Other medical problems
History of cerebral aneurysm in the 70s
History of IBS
DVT prophylaxis:
On heparin drip
CODE STATUS:
Full code
Total time spent on today's encounter was 52 minutes which included time spent in counseling the patient/family regarding diagnosis and treatment plan as listed above, goals of care, and symptom management. Case was discussed with nursing staff,
specialists, and care coordinators/case management. All labs and imaging personally reviewed by me. Remainder the time spent in detailed review of previous records, lab data, imaging, and other medical provider documentation.
Anticipated Discharge: > 48 hours
Subjective/Interval History
-
Date of Service: September 29, 2024
Denies any chest pain or shortness of breath. Denies hemoptysis. Denies any epistaxis, hematuria, bright blood per rectum, melena, hematochezia.
Objective Data
-
Labs:
Laboratory Results
09/29/24 09/29/24
02:17 10:10
WBC 8.2
Hgb 12.4
Hct 38.3
Plt Count 244
PT 14.5
INR 1.10
APTT 59.4 H Pending
Sodium 136
Potassium 4.3
Chloride 107
Carbon Dioxide 23
BUN 13
Creatinine 0.6
Glucose 109 H
Calcium 9.8
Vital Signs:
Vital Signs
Temp Pulse Resp BP Pulse Ox
97.3 F 104 33 131/94 90
09/29/24 07:42 09/29/24 02:12 09/29/24 07:42 09/29/24 02:12 09/29/24 07:42
I&O
09/28/24 09/29/24 09/30/24
06:59 06:59 06:59
Intake Total 480 / 480 480 / 480
Balance 480 / 480 480 / 480
--- NOTE | 2024-09-29 10:44 | W.PN.PUL3 ---
Today's Communication / Plan
-
For interventional radiology biopsy-wait for pathology
Continue symptomatic management
Hopefully diagnosis could be obtained and she can follow-up with oncology
No additional pulmonary recommendations
Will follow peripherally
Assessment
-
84-year-old female with history of protein C deficiency, DVT, stroke/cerebral aneurysm in 1970s, presents with 30 pound weight loss, hemoptysis, cough for many months, now with increased shortness of breath and emesis. CT imaging reveals 12.3 cm
right lower lobe mass with invasion into the left atrium, right hepatic lobe and adrenal gland with multiple pulmonary metastases
12.3 cm right lung mass with invasion into the liver, mediastinum
Subjective dyspnea, cough x 10 months
Hemoptysis
30 pound weight loss
Bilious emesis
Questionable schizophrenia/bipolar disorder
Rapid A-fib requiring Cardizem drip --> now in NSR and off cardizem gtt
Conditions present prior to admission
History of protein C deficiency
DVT, stroke
On chronic Coumadin therapy
Seizure disorder
GERD
Chronic venous stasis changes
Plan/recommendations
-
Stable pulmonary status.
CT chest: Concerning for metastatic possible primary lung malignancy.
MRI brain without metastatic disease.
-
Remains off Coumadin
Heparin continue per primary service as bridge-follow PTT.
Interventional radiology planning for biopsy today: Possibly liver.
Currently NPO.
Quantify hemoptysis (she denies bloody phlegm as of 09/26); continue to closely monitor especially while on heparin drip
Not significant today 09/28/2024 or 09/29/2024 .
I am concerned that this malignancy which is suspected to be invading her left atrium could be contributing to her rapid A-fib she had on 09/26
Echocardiogram performed on 09/25/2024 showing preserved LVEF 60 to 65% with normal regional wall motion, mild concentric LVH, normal RV size/function, with moderate MR, trace AI and normal PASP at 20-25 mmHg
cardiology following patient
Patient aware of suspected cancer diagnosis. She would like to proceed with least a biopsy. This was confirmed by daughter at bedside with Dr. Benites and also Dr. Hernandez (on 09/27)-again Dr. Bass discussed with patient and daughter at the
bedside 09/28/2024.
She is aware that if found to have metastatic cancer, chemotherapy would be the next step.
Unclear if this patient will tolerate any kind of aggressive therapy.
Would advise ongoing discussion regarding goals of care. Patient presently is full code
Given description of potential invasion into the mediastinum, atrium, encouraged ongoing discussion regarding CODE STATUS
High risk situation
No additional recommendation from the pulmonary perspective. Wait for biopsy results. Pulmonary will follow peripherally. Please call with questions.
Subjective Data
-
Date of Service:
Date of Service: September 29, 2024
Chief Complaint: Pulmonary Follow Up
Subjective:
No new pulmonary complaints
Review of Systems
Cardiopulmonary: Dyspnea (n), Dyspnea on Exertion and Cough (Chronic)
Objective Data
Data Reviewed
Vital Signs / I&O / Oxygen:
Vital Signs
Temp Pulse Resp BP Pulse Ox
97.3 F 96 22 128/85 96
09/29/24 07:42 09/29/24 09:00 09/29/24 09:10 09/29/24 07:38 09/29/24 09:28
Intake and Output
09/28/24 09/29/24 09/30/24
06:59 06:59 06:59
Intake Total 480 / 480 480 / 480
Balance 480 / 480 480 / 480
SaO2 96
Nasal Cannula flow liters per 2
minute
Physical Exam
General: Respiratory Distress (negative), Comfortable, Chills (negative) and Sweats (negative)
HEENT: Normocephalic and Anicteric
Cardiovascular: S1-S2, Regular Rhythm and Peripheral Edema (negative)
Respiratory: Clear, Wheeze (negative), Crackles (negative), Rhonchi (negative), Non-Labored Respirations and Stridor (negative)
GI: Soft, Non Distended, Non Tender and Normal Bowel Sounds
Neurology: Awake, Alert and Tremors (negative)
Skin: Warm, Dry, Cyanosis (negative) and Jaundice (negative)
Labs/Micro/Reports
Lab Data
09/29/24 02:17
09/29/24 02:17
Laboratory Results
09/29/24
02:17
PT 14.5
INR 1.10
APTT 59.4 H
Microbiology
09/25/24 06:12 Nose MRSA Screen - Final
No Methicillin Resistant Staphylococcus aureus isolated.
[2024-09-29 11:33] VITALS: BP 125/75
[2024-09-29 11:36] LABS: APTT 54.8 Sec (23.4-35.0)
[2024-09-29] MEDS: ANESTHETIC LOZENGE 1 LOZENGE PO (12:25)
--- NOTE | 2024-09-29 12:26 | W.PN.UPDATE ---
Update Note
Progress Note Update
Patient with Afib on admission that spontaneously converted to SR. Tele reviewed by me today and patient remains in SR. A-fib is possibly related to malignancy and metastatic disease invading her ALFIE. Patient with known protein C deficiency and so
was bridged with heparin with plan to start warfarin. Continue heparin drip and would start warfarin when cleared from an oncologic and diagnostic standpoint. Patient was already taking warfarin prior to admission for her history of protein C
deficiency. If patient recurs with atrial arrhythmia with start amiodarone, otherwise cardiology will sign off at this point and please call back for any additional cardiac needs.
--- NOTE | 2024-09-29 12:33 | PTCARENOTE ---
Pt calm earlier this morning, O2 sat 88% on RA. Pt agreeable to wear O2 at 2L/min. O2 sat 96%. An hour or so later. Pt very anxious, took O2 off, wants to be repositioned in bed. It took about 15 min for Pt to find the right position in bed. Air
cushion positioned under Pt's bottom. Pt requesting to speak with the Dr who is performing her biopsy tomorrow, but the laer changed her mind and is okay with speaking to Dr after the procedure. Sore throat lozenge given at Pt
request.
--- NOTE | 2024-09-29 13:57 | CM ---
Reviewed chart. Met with Mrs. Weiss and her daughter to review discharge plans. She states she is scheduled to have her biopsy tomorrow. Prior to admission she resides alone iin an apartment at [facility]. Prior to admission she
wasa independent with ambulation and adls. She has a INT Machine at home. Will need to see her current functional status to see if she will have any skilled care needs. Medical work-up in progress. The discharge plan is to return to her
apartment at [facility] verses SNF/Rehab. if indicated when medically stable.
[2024-09-29 15:28] VITALS: BP 125/86
[2024-09-29] MEDS: TESSALON PERLES PO (16:13)
[2024-09-29 18:20] LABS: APTT 98.2 Sec (23.4-35.0)
[2024-09-29 18:29] VITALS: BP 154/87
[2024-09-29] MEDS: ZYPREXA 2.5 MG PO (21:31)
[2024-09-29] MEDS: ULTRAM 50 MG PO (21:31)
[2024-09-29 22:50] VITALS: BP 156/85
[2024-09-30] VITALS (18 sets, daily range): BP systolic 83–170; BP diastolic 70–109; BMI 24.8
--- NOTE | 2024-09-30 00:37 | PTCARENOTE ---
Received pt @ change of shift. AAOx3, very anxious about biopsy. BP 154/87, other VSS, NSR/ST on monitor. Heparin gtt running @ 1600 units/hr through left forearm. Discussed care plan for evening and morning. Pt verbalizes understanding. Call balderas
within reach.
[2024-09-30 02:51] LABS: Hematocrit 35.4 % (37.0-47.0); Hemoglobin 11.6 g/dL (12.0-16.0); Mean Corp Hgb Conc. 32.8 g/dL (33.0-37.0); Mean Corpuscular Hgb 26.2 pg (27.0-31.0); Mean Corpuscular Volume 80.1 fL (81.0-99.0); Mean Platelet Volume 9.9 fL (7.4-10.4); Platelet Count 227 10^3/uL (130-400); Red Blood Cell Count 4.42 10^6/uL (4.20-5.40); Red Cell Dist. Width 17.2 % (11.5-14.5); White Blood Cell Count 7.5 10^3/uL (4.8-10.8)
[2024-09-30 03:00] LABS: APTT 87.3 Sec (23.4-35.0); Blood Urea Nitrogen 14 mg/dl (7-17); Calcium 9.5 mg/dl (8.4-10.2); Carbon Dioxide 23 mmol/L (22-30); Chloride 106 mmol/L (98-107); Estimated Creatinine Clearance 64 ml/min; Glucose 103 mg/dl (70-99); Potassium 4.2 mmol/L (3.5-5.1); Sodium 133 mmol/L (135-145); eGFR > 60.00
[2024-09-30] MEDS: PROTONIX 40 MG PO (07:40)
[2024-09-30] MEDS: TESSALON PERLES 200 MG PO ×3 (07:41→21:32)
[2024-09-30] MEDS: SYNTHROID 75 MCG PO (07:42)
[2024-09-30] MEDS: CARDIZEM 125 IV (09:27)
[2024-09-30] MEDS: ATIVAN 1 MG IV (11:16)
[2024-09-30] MEDS: NSS (PRESERVATIVE FREE) 0.5 ML IV (11:18)
--- NOTE | 2024-09-30 11:20 | PN.CDI ---
CDI
- -
CDI:
Physician Documentation Request
Admit Date: 09/25/24 02:35
Dear Doctor Laurent,
09/29 hospitalist note states 'mental status change-back to baseline'
09/28 nursing note 'Patient very anxious and agitated. Zyprexa given'
Could you please clarify in the Progress Notes the most likely etiology of the altered mental status.
Encephalopathy - indicate type, such as metabolic, toxic, septic, alcoholic, anoxic, hypertensive etc. due to a specific condition such as UTI, CVA, hyponatremia etc.
Acute Delirium - indicate known or suspected etiology such as postoperative, due to opioids or other drugs etc. Can also indicate unknown or mixed etiologies.
Other
Use of terms such as suspected, likely, concern for, or probable (associated with a specific diagnosis that is being evaluated, monitored, or treated as if it exists) are acceptable and can be coded in the inpatient setting, when documented at the
time of discharge.
Thank you,
Renetta Rosado RN, BSN
CDI Specialist
tiger text
Please use your independent medical judgment in providing your response.
--- NOTE | 2024-09-30 11:29 | PN.CDI ---
CDI
- -
CDI:
Physician Documentation Request
Admit Date: 09/25/24 02:35
Dear Doctor Laurent,
Patient currently being evaluated for pulmonary mass(es)
Sodium results:
Laboratory Tests
09/24/24 09/25/24 09/26/24
15:58 08:34 08:39
Sodium 132 L 134 L 135
09/27/24 09/28/24 09/29/24
06:34 04:51 02:17
Sodium 132 L 133 L 136
09/30/24
02:18
Sodium 133 L
Could you please provide a diagnosis that supports the above lab abnormalities and additional evaluation/monitoring:
Hyponatremia
Abnormal lab value clinically insignificant
Other
Use of terms such as suspected, likely, concern for, or probable (associated with a specific diagnosis that is being evaluated, monitored, or treated as if it exists) are acceptable and can be coded in the inpatient setting, when documented at the
time of discharge.
Thank you,
Renetta Rosado RN, BSN
CDI Specialist
tiger text
Please use your independent medical judgment in providing your response.
--- NOTE | 2024-09-30 12:17 | W.PN.HOSP.TC ---
Addendum entered and electronically signed by Alejandro Mancilla MD 09/30/24 12:24:
Hyponatremia
Acute delirium, unknown etiology but improved.
Original Note:
Today's Communication/Plan
-
IR biopsy today
Assessment / Plan
Assessment / Plan
Physical exam:
General: Acutely ill
HEENT: Normocephalic, Atraumatic and Moist Mucous Membranes
Respiratory: Clear to Auscultation; Negative Wheezes, Rales or Rhonchi
Cardiac: Irregular rate and rhythm, tachycardic, and S1/S2
GI: Soft, Nontender and Nondistended
Musculoskeletal: No Clubbing, No Cyanosis and No Edema
Neuro: Awake, Alert and Oriented, no neurological deficits
Psych: Anxious
A/P:
Right lung mass involving mediastinum and liver:
Plan for IR biopsy today
On scheduled tramadol and Tylenol as needed
Discussed with daughter yesterday over the phone, [place]
New onset A-fib, paroxysmal:
Back to A-fib RVR
Will use IV Cardizem drip for rate control while n.p.o.
On heparin drip
Plan to restart warfarin after biopsy
Echo normal EF. Moderate mitral MR. Trace aortic regurgitation. Mild tricuspid regurgitation. Normal regional wall motion. Mild concentric left ventricular hypertrophy. Normal diastolic function.
Cardiology signed off yesterday-discussed with cardiology to reevaluate today.
History of DVT/protein C deficiency/drug:
On heparin drip
Plan to restart warfarin after biopsy
Mental status changes:
Back to baseline
Psychiatry evaluated the patient during this hospital stay.
Will discontinue Zyprexa
MRI negative for brain metastasis although limited due to motion
Adjustment disorder with mixed emotional features and anxiety:
Emotional support as needed
Hypothyroidism:
Continue levothyroxine 75 mcg p.o. daily
GERD:
Continue PPI
Other medical problems
History of cerebral aneurysm in the 70s
History of IBS
DVT prophylaxis:
On heparin drip
CODE STATUS:
Full code
Total time spent on today's encounter was 52 minutes which included time spent in counseling the patient/family regarding diagnosis and treatment plan as listed above, goals of care, and symptom management. Case was discussed with nursing staff,
specialists, and care coordinators/case management. All labs and imaging personally reviewed by me. Remainder the time spent in detailed review of previous records, lab data, imaging, and other medical provider documentation.
Anticipated Discharge: > 48 hours
Subjective/Interval History
-
Date of Service: September 30, 2024
Patient had some hemoptysis today. Patient heart rate was relatively fast this morning as well. No chest pain or shortness of breath.
Objective Data
-
Labs:
Laboratory Results
09/30/24
02:18
WBC 7.5
Hgb 11.6 L
Hct 35.4 L
Plt Count 227
APTT 87.3 H
Sodium 133 L
Potassium 4.2
Chloride 106
Carbon Dioxide 23
BUN 14
Creatinine 0.6
Glucose 103 H
Calcium 9.5
Vital Signs:
Vital Signs
Temp Pulse Resp BP Pulse Ox
97.2 F 107 20 128/98 99
09/30/24 11:58 09/30/24 11:58 09/30/24 11:58 09/30/24 11:58 09/30/24 11:58
I&O
09/29/24 09/30/24 10/01/24
06:59 06:59 06:59
Intake Total 480 / 480
Balance 480 / 480
--- NOTE | 2024-09-30 13:19 | PTCARENOTE ---
Pt very anxious this morning, went back into A-Fib, HR 120-160's. EKG obtained. Cardizem drip ordered buy Dr Mancilla and started at 5 mg/hr as ordered. Pt coughed, productive for some bloody mucous, Dr Mancilla aware. Pt sent to IR for biopsy as
ordered. She was NPO except meds.
--- NOTE | 2024-09-30 13:40 | CM ---
Reviewed chart. Met with Mrs. Weiss daughter Selma to review discharge plans. She was expressing concerns about her mother needing care post discharge. We reviewed SNF/Rehab, VNA and private care givers. 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 We reviewed Short Term SNF Rehab. at [facility]. if she is agreeable. We reviewed VNNA Services and private help at home. Will need to see her current functional level to see if she will have any skilled care needs. Medical
work-up in progress. The discharge plan is to SNF/Rehab. if she is agreeable when medically stable.
--- NOTE | 2024-09-30 14:53 | PTCARENOTE ---
Pt returned from IR, A,A+Ox3, states she is very comfortable, VSS. Bandaid to R back D+I.
--- NOTE | 2024-09-30 15:43 | W.PN.CARDCBS ---
Addendum entered and electronically signed by Catrachito Barron MD 09/30/24 16:16:
I saw and examined the patient.
The MOLD MAINTENANCE TECHNICIAN or PA's note was reviewed and I agree with the note.
Comment: General: Well developed, well nourished in NAD.
Neck: Supple, no JVD, HJR, carotids +2 B/L, no bruits bilaterally.
Heart: Non displaced PMI, Irregular, no murmurs, No S3, S4, no rubs.
Lungs: Scattered rhonchi
Extremities: No clubbing, cyanosis or edema bilaterally.
Neuro: Grossly nonfocal, awake, alert and oriented x3.
Has gone back into A-fib which is rapid. Appears to be relatively asymptomatic. Will start amiodarone 200 mg p.o. 3 times daily. She is on Cardizem drip at present.May need to consider changing to oral Toprol on 10/01. Would do rate control at
this point given uncertainty regarding possible cancer diagnosis. Also is asymptomatic. She is already on Coumadin for protein C deficiency. Discussed in detail with daughter at bedside
Original Note:
Today's Communication / Plan
-
Start amio 200 mg TID
Check ECG in AM
Stop Cardizem gtt once converts to SR
Impression / Plan
-
PCP: Dr. Ness Elizabeth
Card: None prior to admission
Assessment:
Admitted with abnormal CXR and possible lung malignancy 09/24/2024
Right lung mass involving mediastinum and liver
Paroxysmal A-fib with RVR
Spontaneous conversion to SR 09/26/2024
Recurrence of A-fib with RVR 09/30/2024
Suspected local metastatic invasion of adjacent structures including the LA possibly contributing to atrial arrhythmia
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
DVT
Stroke/cerebral aneurysms 1970s
Hypothyroidism
Gastroesophageal reflux disease
CT chest abdomen and pelvis 09/24/2024:
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
left atrium.
Multiple pulmonary metastases.
Fluid attenuation hepatic lesions favored to represent cysts, but hepatic metastases are not completely excluded.
Echo 09/25/24: normal LV size and function, no WMA, mod MR, mild TR, trace pericardial effusion. There is no mass seen abutting the heart.
Plan:
-Patient was admitted on 09/24/2024 with cough, SOB and weight loss. Patient found to have right lung mass concerning for malignancy and also suspicious for local metastatic invasion of adjacent structures including possibly the left atrium leading
to atrial arrhythmia and prompting cardiology consultation for A-fib with RVR on 09/27/2024. Patient spontaneously converted to SR and cardiology signed off on 09/29/24. Patient recurred with A-fib with RVR on 09/30/2024.
-Patient recurred with A-fib and RVR while n.p.o. awaiting IR biopsy 09/30/2024. Agree with plan from hospitalist attending to add Cardizem gtt and hope that patient spontaneously converts again.
-Given that patient recurred with A-fib we will add amiodarone 200 mg TID in an attempt at rate control
-Check ECG in a.m., ordered by me
-Patient with known protein C deficiency for which she is chronically on warfarin and is being bridged with heparin gtt while awaiting biopsy.
-Echo as noted above showed trace pericardial effusion could represent malignant pericardial effusion, but was trace to small and no evidence of hemodynamic compromise. Additionally there was no evidence of mass effect or impingement on any cardiac
structure although initial CT in the ER on 09/24/2024 suggested possible invasion of adjacent structures including the left atrium
Progress Note - Nuclear Operations Specialist
Subjective
Date of Service: September 30, 2024
Tearful
Objective
Labs:
09/30/24 02:18
09/30/24 02:18
Labs
Hgb 11.6 g/dL (12.0-16.0) L 09/30/24 02:18
Hct 35.4 % (37.0-47.0) L 09/30/24 02:18
Plt Count 227 10^3/uL (130-400) 09/30/24 02:18
PT 14.5 Sec (11.4-14.6) 09/29/24 02:17
INR 1.10 09/29/24 02:17
APTT 87.3 Sec (23.4-35.0) H 09/30/24 02:18
Sodium 133 mmol/L (135-145) L 09/30/24 02:18
Potassium 4.2 mmol/L (3.5-5.1) 09/30/24 02:18
BUN 14 mg/dl (7-17) 09/30/24 02:18
Creatinine 0.6 mg/dL (0.6-1.0) 09/30/24 02:18
Glucose 103 mg/dl (70-99) H 09/30/24 02:18
Vital Signs and I&O:
Vital Signs
Temp Pulse Resp BP Pulse Ox
98.4 F 85 22 142/81 99
09/30/24 13:05 09/30/24 13:10 09/30/24 13:10 09/30/24 13:10 09/30/24 13:10
Vital Signs
Temp Pulse Resp BP Pulse Ox
98.4 F 85 22 142/81 99
09/30/24 13:05 09/30/24 13:10 09/30/24 13:10 09/30/24 13:10 09/30/24 13:10
Intake & Output
09/28/24 09/29/24 09/30/24 10/01/24
06:59 06:59 06:59 06:59
Intake Total 480 / 480 480 / 480
Balance 480 / 480 480 / 480
Physical Exam
Physical Exam
GEN: AAO x3
LUNGS: RA
CV: Afib on tele
[2024-09-30] MEDS: PACERONE 200 MG PO ×2 (16:35→21:32)
[2024-09-30] MEDS: COUMADIN 10 MG PO (18:42)
[2024-09-30] MEDS: TYLENOL 650 MG PO (19:41)
[2024-09-30] MEDS: ZYPREXA 2.5 MG PO (20:06)
[2024-09-30] MEDS: ULTRAM 50 MG PO (21:33)
[2024-09-30] MEDS: ATIVAN 0.5 MG IV (22:42)
[2024-09-30] MEDS: HEPARIN 25000 UNITS/250 ML IV (22:50)
[2024-10-01] VITALS (9 sets, daily range): BP systolic 126–145; BP diastolic 72–82; PULSE 97; O2SAT 90–91
[2024-10-01 00:01] LABS: APTT 38.4 Sec (23.4-35.0)
--- NOTE | 2024-10-01 01:40 | PTCARENOTE ---
Received pt @ change of shift. AAOx3, tearful, angry, agitated, anxious. Sinus tach on monitor. Fever 102.8-- Tylenol given-- see JUN. 2L NC on stating @ 98%. Heparin gtt running @ 1800 units through right forearm. Bandage on right back from biopsy
clean, dry, and intact. Pt very uncomfortable and in a lot of pain post biopsy.Pt c/o chest pain-- EKG completed. Notified Nereida Chaudhry NP-- ordered ativan IV-- see MAR. Discussed plan of care for evening. Pt irritable and just wanted 'to be
comfortable to sleep.' Call balderas within reach.
[2024-10-01 07:28] LABS: Hematocrit 35.5 % (37.0-47.0); Hemoglobin 11.6 g/dL (12.0-16.0); Mean Corp Hgb Conc. 32.7 g/dL (33.0-37.0); Mean Corpuscular Hgb 26.4 pg (27.0-31.0); Mean Corpuscular Volume 80.7 fL (81.0-99.0); Mean Platelet Volume 9.9 fL (7.4-10.4); Platelet Count 197 10^3/uL (130-400); Red Cell Dist. Width 17.4 % (11.5-14.5)
[2024-10-01 07:32] LABS: INR 1.37; PT 17.4 Sec (11.4-14.6)
--- NOTE | 2024-10-01 07:35 | W.PN.HOSP.TC ---
Addendum entered and electronically signed by Alejandro Mancilla MD 10/01/24 13:28:
ID on board for febrile illness.
Oncology eval for coordination of lung mass s/p biopsy.
Addendum entered and electronically signed by Alejandro Mancilla MD 10/01/24 10:37:
Patient spiked a fever last evening. Proceed to do fever workup. Updated daughter today.
Original Note:
Today's Communication/Plan
-
Heparin and warfarin. PT OT
Assessment / Plan
Assessment / Plan
Physical exam:
General: Acutely ill
HEENT: Normocephalic, Atraumatic and Moist Mucous Membranes
Respiratory: Clear to Auscultation; Negative Wheezes, Rales or Rhonchi
Cardiac: Irregular rate and rhythm, tachycardic, and S1/S2
GI: Soft, Nontender and Nondistended
Musculoskeletal: No Clubbing, No Cyanosis and No Edema
Neuro: Awake, Alert and Oriented, no neurological deficits
Psych: Anxious
A/P:
Right lung mass involving mediastinum and liver:
Status post IR biopsy on 09/30
On scheduled tramadol and Tylenol as needed
Discussed with daughter prior over the phone, [place]
PT OT eval
New onset A-fib, paroxysmal:
Cardiology reconsulted and started her on amiodarone
On heparin drip and warfarin (warfarin 10 mg last evening, will dose 7.5 mg tonight, INR 1.37 today)
Echo normal EF. Moderate mitral MR. Trace aortic regurgitation. Mild tricuspid regurgitation. Normal regional wall motion. Mild concentric left ventricular hypertrophy. Normal diastolic function.
History of DVT/protein C deficiency/drug:
On heparin drip and warfarin
Mental status changes (acute delirium, now resolved):
Back to baseline
Psychiatry evaluated the patient during this hospital stay.
Discontinued Zyprexa
MRI negative for brain metastasis although limited due to motion
Adjustment disorder with mixed emotional features and anxiety:
Emotional support as needed
Hypothyroidism:
Continue levothyroxine 75 mcg p.o. daily
GERD:
Continue PPI
Other medical problems
History of cerebral aneurysm in the 70s
History of IBS
DVT prophylaxis:
On heparin drip
CODE STATUS:
Full code
Total time spent on today's encounter was 52 minutes which included time spent in counseling the patient/family regarding diagnosis and treatment plan as listed above, goals of care, and symptom management. Case was discussed with nursing staff,
specialists, and care coordinators/case management. All labs and imaging personally reviewed by me. Remainder the time spent in detailed review of previous records, lab data, imaging, and other medical provider documentation.
Anticipated Discharge: 24 - 48 hours
Subjective/Interval History
-
Date of Service: October 01, 2024
No new complaints. No chest pain or shortness of breath
Objective Data
-
Labs:
Laboratory Results
09/30/24 10/01/24
23:38 07:03
WBC 13.0 H
Hgb 11.6 L
Hct 35.5 L
Plt Count 197
PT Pending
INR Pending
APTT 38.4 H Pending
Sodium Pending
Potassium Pending
Chloride Pending
Carbon Dioxide Pending
BUN Pending
Creatinine Pending
Glucose Pending
Calcium Pending
Vital Signs:
Vital Signs
Temp Pulse Resp BP Pulse Ox
97.6 F 83 20 134/72 96
10/01/24 04:24 10/01/24 04:24 10/01/24 04:24 10/01/24 04:21 10/01/24 04:24
[2024-10-01 07:46] LABS: APTT 155.5 Sec (23.4-35.0)
[2024-10-01] MEDS: SYNTHROID 75 MCG PO (08:15)
[2024-10-01] MEDS: PROTONIX 40 MG PO (08:17)
[2024-10-01] MEDS: PACERONE 200 MG PO ×3 (08:17→21:25)
--- NOTE | 2024-10-01 09:06 | W.PN.CARDCBS ---
Addendum entered and electronically signed by Preston Romero MD 10/01/24 09:44:
I saw and examined the patient.
The Loan Teller's note was reviewed and I agree with the note.
Comment:
GEN: No distress, awake
HEENT: supple, anicteric, mmm
LUNGS: CTA, no wheezes/rales
CV: Reg, S1/S2, 1/6 syst LSB, no gallop
ABD: soft, BS+, NT/ND
EXT: No edema
NEURO: Gross non-focal
SKIN: No rash
Plan:
She is back in sinus rhythm. Continue amiodarone 200 mg p.o. 3 times daily.
Continue IV heparin to Coumadin. INR 1.37.
cont Synthroid.
Long-term prognosis very poor.
Original Note:
Today's Communication / Plan
-
Continue amiodarone 200mg TID
Remains in SR on tele.
Heparin to coumadin bridge. INR 1.37
Follow up arranged.
Impression / Plan
-
PCP: Dr. Ness Elizabeth
Card: None prior to admission
Assessment:
Admitted with abnormal CXR and possible lung malignancy 09/24/2024
Right lung mass involving mediastinum and liver
Paroxysmal A-fib with RVR
Spontaneous conversion to SR 09/26/2024
Recurrence of A-fib with RVR 09/30/2024
Suspected local metastatic invasion of adjacent structures including the LA possibly contributing to atrial arrhythmia
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
DVT
Stroke/cerebral aneurysms 1970s
Hypothyroidism
Gastroesophageal reflux disease
CT chest abdomen and pelvis 09/24/2024:
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
left atrium.
Multiple pulmonary metastases.
Fluid attenuation hepatic lesions favored to represent cysts, but hepatic metastases are not completely excluded.
Echo 09/25/24: normal LV size and function, no WMA, mod MR, mild TR, trace pericardial effusion. There is no mass seen abutting the heart.
Plan:
-Patient was admitted on 09/24/2024 with cough, SOB and weight loss. Patient found to have right lung mass concerning for malignancy and also suspicious for local metastatic invasion of adjacent structures including possibly the left atrium leading
to atrial arrhythmia and prompting cardiology consultation for A-fib with RVR on 09/27/2024. Patient spontaneously converted to SR.
-Patient recurred with A-fib and RVR while n.p.o. awaiting IR biopsy 09/30/2024. Restarted on cardizem gtt and again spontaneously converted to SR. Remains in SR on review of tele this AM.
-Cardizem gtt stopped. Could consider low dose BB for rate control. Continue amiodarone 200mg TID. HR stable. QTc 472 ms by ECG this AM.
-Patient with known protein C deficiency for which she is chronically on warfarin and is being bridged with heparin gtt. INR 1.37 this AM. Warfarin resumed 09/30 post biopsy.
-Echo as noted above showed trace pericardial effusion could represent malignant pericardial effusion, but was trace to small and no evidence of hemodynamic compromise. Additionally there was no evidence of mass effect or impingement on any cardiac
structure although initial CT in the ER on 09/24/2024 suggested possible invasion of adjacent structures including the left atrium
-Notes she is not sleeping well but has no current cardiac complaints.
-Will arrange cardiology follow up
Progress Note - Media Marketing Director
Subjective
Date of Service: October 01, 2024
No cardiac complaints.
Objective
Labs:
10/01/24 07:03
Labs
Hgb 11.6 g/dL (12.0-16.0) L 10/01/24 07:03
Hct 35.5 % (37.0-47.0) L 10/01/24 07:03
Plt Count 197 10^3/uL (130-400) 10/01/24 07:03
PT 17.4 Sec (11.4-14.6) H 10/01/24 07:03
INR 1.37 10/01/24 07:03
APTT 155.5 Sec (23.4-35.0) H* 10/01/24 07:03
Sodium 133 mmol/L (135-145) L 09/30/24 02:18
Potassium 4.2 mmol/L (3.5-5.1) 09/30/24 02:18
BUN 14 mg/dl (7-17) 09/30/24 02:18
Creatinine 0.6 mg/dL (0.6-1.0) 09/30/24 02:18
Glucose 103 mg/dl (70-99) H 09/30/24 02:18
Vital Signs and I&O:
Vital Signs
Temp Pulse Resp BP Pulse Ox
98.5 F 83 26 134/72 99
10/01/24 07:53 10/01/24 04:24 10/01/24 07:53 10/01/24 04:21 10/01/24 07:53
Vital Signs
Temp Pulse Resp BP Pulse Ox
98.5 F 83 26 134/72 99
10/01/24 07:53 10/01/24 04:24 10/01/24 07:53 10/01/24 04:21 10/01/24 07:53
Intake & Output
09/29/24 09/30/24 10/01/24 10/02/24
06:59 06:59 06:59 06:59
Intake Total 480 / 480
Balance 480 / 480
Physical Exam
Physical Exam
GEN: No distress, awake, alert, oriented x3
HEENT: supple, anicteric, mmm
LUNGS: CTA b/l, no wheezes/rales
CV: Reg, S1/S2, no murmur
EXT: No clubbing, cyanosis, or edema
NEURO: Gross non-focal
SKIN: Warm, dry, no rash
[2024-10-01 09:44] LABS: Blood Urea Nitrogen 17 mg/dl (7-17); Calcium 9.9 mg/dl (8.4-10.2); Carbon Dioxide 24 mmol/L (22-30); Chloride 103 mmol/L (98-107); Estimated Creatinine Clearance 64 ml/min; Glucose 105 mg/dl (70-99); Potassium 4.5 mmol/L (3.5-5.1); Sodium 133 mmol/L (135-145); eGFR > 60.00
[2024-10-01] MEDS: TESSALON PERLES 200 MG PO ×2 (11:55→21:25)
[2024-10-01] MEDS: HEPARIN 25000 UNITS/250 ML IV (14:03)
--- NOTE | 2024-10-01 14:19 | CM ---
"Reviewed chart. Met with Mrs. Weiss and her daughter Selma to review discharge plans. Reviewed SNF/Rehab. with her. We reviewed SNF options. She was willing to have referral made to [facility] and [facility], Sent referrals to [place] [facility] and [facility]. Awaiting to see who can offer a bed. Medical work-up in progress. The discharge plan is to go to SNF when bed available and medically stable. "
[2024-10-01] MEDS: TYLENOL 650 MG PO (15:20)
[2024-10-01 15:21] LABS: APTT 84.5 Sec (23.4-35.0)
--- NOTE | 2024-10-01 16:55 | PTCARENOTE ---
Report given to Keira RODRIGUEZ. Pt transported to room 2133-01. Belongings collected and sent w/ pt.
[2024-10-01] MEDS: COUMADIN 7.5 MG PO (18:15)
[2024-10-01] MEDS: ULTRAM 50 MG PO (21:25)
[2024-10-01 21:42] LABS: APTT 96.3 Sec (23.4-35.0)
--- NOTE | 2024-10-01 23:00 | RESPNOTE ---
called by RN to give pt nebulizer tx for coughing. Pt was talking on the phone when I arrived at her room, not coughing, no respiratory distress noted. Pt asked what a nebulizer tx did. Once explained that Albuterol was strictly a bronchodilator
and not a cough suppresant, pt refused tx.
[2024-10-01] MEDS: ROBITUSSIN 100 MG PO (23:13)
[2024-10-02] VITALS (8 sets, daily range): BP systolic 127–151; BP diastolic 70–81
[2024-10-02] MEDS: HEPARIN 25000 UNITS/250 ML IV (03:38)
[2024-10-02] MEDS: TYLENOL 650 MG PO ×2 (04:19→23:14)
[2024-10-02] MEDS: ROBITUSSIN 100 MG PO (04:19)
[2024-10-02] MEDS: SYNTHROID 75 MCG PO (05:17)
[2024-10-02] MEDS: LIDOCAINE 4% PATCH 1 PATCH TOPICAL (06:01)
[2024-10-02 06:27] LABS: Hematocrit 31.8 % (37.0-47.0); Hemoglobin 10.5 g/dL (12.0-16.0); Mean Corpuscular Hgb 26.3 pg (27.0-31.0); Mean Corpuscular Volume 79.7 fL (81.0-99.0); Mean Platelet Volume 9.7 fL (7.4-10.4); Platelet Count 182 10^3/uL (130-400); Red Blood Cell Count 3.99 10^6/uL (4.20-5.40); Red Cell Dist. Width 17.1 % (11.5-14.5); White Blood Cell Count 10.7 10^3/uL (4.8-10.8)
[2024-10-02 06:33] LABS: INR 2.71; PT 29.1 Sec (11.4-14.6)
[2024-10-02 06:35] LABS: APTT 113.4 Sec (23.4-35.0)
[2024-10-02 07:56] LABS: Blood Urea Nitrogen 12 mg/dl (7-17); Calcium 9.4 mg/dl (8.4-10.2); Carbon Dioxide 23 mmol/L (22-30); Chloride 98 mmol/L (98-107); Estimated Creatinine Clearance 64 ml/min; Glucose 119 mg/dl (70-99); Potassium 4.3 mmol/L (3.5-5.1); Sodium 125 mmol/L (135-145); eGFR > 60.00
[2024-10-02] MEDS: PACERONE 200 MG PO ×3 (08:02→21:00)
[2024-10-02] MEDS: PROTONIX 40 MG PO (08:02)
[2024-10-02] MEDS: MORPHINE SULFATE 2 MG IV ×2 (08:02→20:40)
--- NOTE | 2024-10-02 08:43 | CON.ID ---
Consultation
-
Date/Time Consultation Requested: 10/01/2024 1327
Date/Time Consultation Performed: 10/02/2024 0844
Requesting Provider: Dr. Mancilla
Performing Provider: Dr. Lyles
Reason for Consultation: Fever
Chief Complaint / Past History
History of Present Illness
Margoth Weiss is an 84-year-old female being evaluated at the request of Dr. Miller in regards to fever. History is obtained from chart review, along with patient interview. Additional history was obtained from the patient's daughter who was at
the bedside.
The patient initially presented to [facility] on 09/24 from her PCPs office for further workup of ongoing shortness of breath and anorexia. According to the daughter, the patient has had at least 8 months of ongoing cough, with 6 months of
sputum production. She has had progressive shortness of breath over the past 2 months, and has been noted to have coughing fits resulting in gagging and vomiting. Additionally she has had intermittent hemoptysis. Her sputum is noted to be yellow
in nature.
Initial workup in the ER revealed a large mass in the lower right hemithorax measuring up to 12 cm with invasion of adjacent structures. Additionally, multiple pulmonary metastasis were noted. Hospital course thus far has been significant for
paroxysmal A-fib. She underwent a lung biopsy on 09/30/2024 which has revealed the presence of keratinizing squamous cell carcinoma. Following her biopsy, she developed two episodes of fever, with a Tmax of 102.8. Infectious Diseases is now asked
to comment upon necessity of antibiotics.
At present, she continues to remain short of breath with ongoing cough. She denies any chest pain, but notes pharyngitis secondary to the ongoing cough. She notes some right upper quadrant discomfort. She notes intermittent nausea. No dysuria.
Past History
Additional Past Medical History:
GERD
Hypothyroidism
Protein C deficiency (Hx DVT; on warfarin)
IBS
Venous insufficiency
Additional Past Surgical History:
Hysterectomy
Back surgery
Hx CVA
Allergy History:
Sulfa (Sulfonamide Antibiotics) Allergy (Verified 09/24/24 15:51)
Unknown
Medications Reviewed: Yes
Current Antibiotics:
None
Social History
Tobacco: Non-Smoker
Alcohol: None
Drug: None
Personal:
Living: Alone
Employment: Retired
Family History
Family History: Not Pertinent
Review of Systems
Vital Signs
Temp Pulse Resp BP Pulse Ox
98.0 F 85 16 139/70 94
10/01/24 23:24 10/02/24 08:02 10/01/24 23:24 10/02/24 08:02 10/01/24 23:24
Physical Exam
Physical Exam
Constitutional: No Acute Distress, Comfortable, Chronically Ill and Non-toxic
Head: Normocephalic
Eyes: Pupils Equal, Pupils Round, No Conjunctival Hemorrhage and Sclera Anicteric
Oral: No Thrush and No Ulcers
Cardiovascular: Regular Rate; Negative S1/S2 or S3/S4
Pulmonary: Rhonchi (few; scattered) and Coarse; Negative Rales
Gastrointestinal: Soft, Non Tender, Non Distended, Normal Bowel Sounds, No Rebound and No Guarding
Extremities: Edema and Venous Insufficiency (Severe; B/L LE's); Negative Cyanosis
Musculoskeletal: Negative Joint Swelling
Skin: Warm and Dry; Negative Rash
Neurological: Awake and Alert
Psychological: Calm
.
Lab / Diagnostic Study Results
10/02/24 06:10
10/02/24 06:10
Abs Immat Gran (auto) 0.0 10^3/uL (0-0.05) 09/24/24 15:58
Absolute Neuts (auto) 7.6 10^3/uL (1.4-6.5) H 09/24/24 15:58
Absolute Lymphs (auto) 0.8 10^3/uL (1.2-3.4) L 09/24/24 15:58
Absolute Monos (auto) 0.7 10^3/uL (0.1-0.6) H 09/24/24 15:58
Absolute Basos (auto) 0.1 10^3/uL (0-0.2) 09/24/24 15:58
Immature Gran % 0.3 % (0-0.5) 09/24/24 15:58
Neutrophils % 82.8 % (42.2-75.2) H 09/24/24 15:58
Lymphocytes % 8.3 % (20.5-51.1) L 09/24/24 15:58
Monocytes % 7.2 % (1.7-9.3) 09/24/24 15:58
Eosinophils % 0.7 % (0-6) 09/24/24 15:58
Basophils % 0.7 % (0-2) 09/24/24 15:58
PT 29.1 Sec (11.4-14.6) H 10/02/24 06:10
INR 2.71 10/02/24 06:10
Microbiology Results
Micro:
10/01/24 13:28 Blood Culture - Pending
Blood/Venous
10/01/24 11:05 Blood Culture - Pending
Blood/Venous
09/25/24 06:12 MRSA Screen - Final
Nose No Methicillin Resistant Staphylococcus aureus isolated.
Imaging:
09/24/2024 CT C/A/P : Large malignant mass in the lower right hemithorax measuring 12.3 x 10.4 x 10.5 cm. This is centered within the right lower lobe with significant invasion of adjacent structures including the posterior right hepatic lobe, the
right adrenal gland, and the left atrium. Encasement and obstruction of the right middle and lower lobe bronchi. Complete atelectasis of the right middle lobe. Spiculated pulmonary metastases measuring 3.8 cm in the left upper lobe, 1.3 cm in the
right upper lobe, and 1.8 cm in the right upper lobe. Groundglass opacity in the apex of the right upper lobe may also be metastatic. Small right pleural effusion. No pneumothorax.
Please see full dictation for additional detail. Film personally viewed.
Assessment / Plan
Fever
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
GERD
Hypothyroidism
Protein C deficiency (Hx DVT)
IBS
Venous insufficiency
Recommendations:
Patient thus far has had two isolated spiking temperatures, but is currently afebrile.
Low-grade leukocytosis noted yesterday, but today's white count is normal.
Given clinical stability off of antibiotics, I would favor not starting antibiotic therapy at present, with close clinical observation.
Will continue to follow white count and temperature curve.
Will follow pending blood cultures.
Further recommendations as additional data is returned.
Care Review
Plan reviewed with: Physician (Dhara)
--- NOTE | 2024-10-02 09:20 | CON.ONC ---
Consultation
-
Date Consultation Requested: 10/01/24
Date Consultation Performed: 10/02/24
Requesting Provider: Alejandro Mancilla
Performing Provider: Sheldon Bartholomew
Reason for Consultation: Biopsy-proven squamous cell carcinoma of lung
Impression
Impression
84 female past medical history of protein C deficiency, history of DVT with 8 months of progressive shortness of breath and cough with hemoptysis, associated 30 pound weight loss found to have malignant squamous cell carcinoma proven on CT-guided
biopsy. large malignant mass in the lower right hemithorax measuring 12.3 x 10.4 x 10.5 cm centered in the right lower lobe with significant invasion of adjacent structures including posterior superior right hepatic lobe right adrenal gland and
left atrium. Multiple pulmonary metastases in multiple contralateral lobes, largest measuring 3.8 cm in left upper lobe. Also fluid attenuating hepatic lesions. Brain MRI negative for intracranial metastases.
Plan
Plan
#Stage IV non-small cell lung cancer, squamous cell subtype
Progressive shortness of breath, worsening cough, episodes of hemoptysis, reported 30 pound weight loss in the last [address] abdomen pelvis demonstrated large malignant mass in the lower right hemithorax measuring 12.3 x 10.4 x 10.5 cm centered in the right lower lobe significant invasion of adjacent structures including posterior superior right hepatic lobe, right
adrenal gland and left atrium. Multiple pulmonary metastases in multiple lobes, some contralateral. Largest measuring 3.8 in left upper lobe. Also has fluid attenuating hepatic lesions, etiology of these hepatic lesions these have not been
elicited. Brain MRI negative for intracranial metastasis
Patient underwent CT-guided biopsy which demonstrated non-small cell�keratinizing squamous cell carcinoma of the lung
With the extent of her metastatic disease patient would be at minimum stage IV based on involvement of contralateral lungs
Further workup is required to properly stage patient. She will require outpatient PET scan for complete staging
Patient's goals remain restorative, she would like to pursue any options that may keep the cancer under control. Currently our thoughts are she may be a candidate for immune therapy depending on PD-L1 status of her malignancy
PD-L1 status is pending
Patient has been informed that unfortunately cancer is not operative or curable at this point
Patient will be set up with an outpatient office visit with [facility], our nurse practitioner [place] and physician Dr. Bartholomew had conversation with patient and daughter regarding outpatient follow-up
Conversation was had regarding palliative care, will set up outpatient palliative care follow-up. Palliative care consult placed and coordination with registered nurse hh case manager Gina Hernandez was facilitated
#Protein C deficiency with reported previous DVT
Currently patient is on heparin bridge to warfarin
Patient reports she has only tried Coumadin and Jantoven previously which are both brands of warfarin
Patient does not believe she has ever trialed a DOAC before
Continue heparin bridge to warfarin
Would not adjust anticoagulants in the acute inpatient setting, conversation may be had about adjustments in the outpatient setting during follow-up with hematology oncology as warfarin is not great anticoagulation medicine in the setting of cancer
Patient History
History of Present Illness
84 female past med history significant for protein C deficiency with previous DVT, who presented to outside emergency department for cough, shortness of breath and weight loss. Patient has ongoing cough for approximately 8 months which has become
more frequent and harsh. Patient also noted hemoptysis streaks. Reported 30 pound weight loss in the last 6 months. Had eval by ENT and GI regarding cough with no clear diagnosis, was sent to emergency department by PCP for further evaluation.
During her admission she had a CT abdomen pelvis which showed a large malignant mass in the lower right hemithorax measuring 12.3 x 10.4 x 10.5 cm centered in the right lower lobe with significant invasion of adjacent structures including posterior
superior right hepatic lobe right adrenal gland and left atrium. Multiple pulmonary metastases in multiple lobes, largest measuring 3.8 cm in left upper lobe. Also fluid attenuating hepatic lesions. She underwent CT-guided biopsy which
pathologically represented keratinizing squamous cell carcinoma of the lung. MRI brain did not demonstrate any evidence for intracranial metastasis. Oncology was consulted regarding biopsy-proven squamous cell carcinoma of lung.
Past-Medical/Surgical History
See HPI
Patient Medication
�Medication �Instructions �Recorded �Confirmed �Last Taken �Type
levothyroxine 75 mcg tablet 75 mcg PO DAILY@06 Thyroid 01/04/21 09/26/24 09/24/24 History
Lactobac no.2-Bifidobac no.1-S. 1 cap PO DAILY Supplement 01/02/24 09/24/24 09/24/24 History
thermo 112.5 billion cell capsule
(Visbiome)
calcium carbonate (Calcium 600) 600 mg PO DAILY Supplement 01/02/24 09/24/24 09/24/24 History
cyanocobalamin 2 mg-levomefolate 1 tab PO DAILY Supplement 01/02/24 09/24/24 09/24/24 History
brittanie 1.13 mg-pyridoxine 25 mg
tablet (Foltx)
dexlansoprazole 30 mg 30 mg PO QPM Gastrointestinal Issue 01/02/24 09/24/24 09/24/24 History
capsule,biphase delayed release
furosemide 20 mg tablet 20 mg PO DAILY Fluid 01/02/24 09/24/24 09/24/24 History
Retention/Swelling
gabapentin 300 mg capsule 300 mg PO TID Pain 01/02/24 09/24/24 01/02/24 History
warfarin 2.5 mg tablet 5 mg PO MOFR@1930 Blood Clot 01/02/24 09/24/24 09/24/24 History
Prevention/Tx
warfarin 2.5 mg tablet (Jantoven) 2.5 mg PO SUTUWETHSA@1930 Blood 01/02/24 09/24/24 09/24/24 History
Clot Prevention/Tx
doxycycline hyclate 100 mg capsule 100 mg PO BID #20 caps 01/03/24 09/24/24 Unknown Rx
tramadol 50 mg tablet 50 mg PO HS Pain 09/26/24 09/26/24 Unknown History
Active Medications
Generic Name Dose Route Start Last Admin
Trade Name Freq PRN Reason Stop Dose Admin
Acetaminophen 650 mg 09/25/24 05:42 10/02/24 04:19
Acetaminophen 325 Mg Tablet PO 10/23/24 05:41 650 mg
Q4HPRN PRN Administration
Mild Pain / Temp > 101
Albuterol Sulfate 2.5 mg 09/25/24 05:42
Albuterol Nebs 2.5 Mg/3 Ml Ampul INH
R Q4HPRN PRN
SOB
Protocol
Amiodarone HCl 200 mg 09/30/24 16:00 10/02/24 08:02
Amiodarone 200 Mg Tablet PO 10/28/24 15:59 200 mg
TID AMILCAR Administration
Benzocaine/Menthol 1 lozenge 09/25/24 08:16 09/29/24 12:25
Benzocaine/Menthol Lozenge PO 10/23/24 08:15 1 lozenge
Q4HPRN PRN Administration
sore throat
Benzonatate 200 mg 09/25/24 03:43 10/01/24 21:25
Benzonatate 100 Mg Capsule PO 10/23/24 03:42 200 mg
TIDPRN PRN Administration
Cough
Guaifenesin 100 mg 10/01/24 22:46 10/02/24 04:19
Guaifenesin Oral Solution (200 Mg/10 Ml) Cup PO 10/29/24 22:45 100 mg
Q4HPRN PRN Administration
cough
Heparin Sodium 25,000 units in 250 mls @ 0 mls/hr 09/26/24 18:00 10/02/24 03:38
Heparin 00718 Units/250 Ml IV 250 mls
PER PROTOCOL AMILCAR Administration
Protocol
Per Protocol
Levothyroxine Sodium 75 mcg 09/25/24 06:00 10/02/24 05:17
Levothyroxine 75 Mcg Tablet PO 10/23/24 05:59 75 mcg
DAILY @ 0600 AMILCAR Administration
Lidocaine 1 patch 10/02/24 06:00 10/02/24 06:01
Lidocaine 4% Topical Patch TOPICAL 10/30/24 05:59 1 patch
DAILY AMILCAR Administration
Protocol
Morphine Sulfate 2 mg 10/02/24 07:47 10/02/24 08:02
Morphine 2 Mg/Ml Syringe IV 10/16/24 07:46 2 mg
Q4HPRN PRN Administration
severe pain
Olanzapine 2.5 mg 09/25/24 02:33 09/30/24 20:06
Olanzapine 2.5 Mg Tablet PO 10/23/24 02:32 2.5 mg
Q6HPRN PRN Administration
Agitation
Pantoprazole Sodium 40 mg 09/25/24 08:00 10/02/24 08:02
Pantoprazole 40 Mg Delayed Release Tablet PO 10/23/24 07:59 40 mg
DAILY AMILCAR Administration
Patch Removal 1 patch 10/02/24 20:00
Remove Lidocaine Patch REMOVE 10/30/24 19:59
DAILY@2000 AMILCAR
Sodium Chloride 0 flush 09/25/24 02:00
Sodium Chloride 0.9% (Flush) Syringe IV 10/23/24 01:59
PER PROTOCOL AMILCAR
Tramadol HCl 50 mg 09/26/24 22:00 10/01/24 21:25
Tramadol Hcl 50 Mg Tablet PO 10/24/24 21:59 50 mg
HS AMILCAR Administration
Review of Systems
-
History Source: Patient
Constitutional: Reports Weight Loss
Respiratory: Reports Cough, Hemoptysis and Trouble Breathing
Cardiac: Reports No Symptoms
GI: Reports No Symptoms
Neuro: Reports No Symptoms
Psych: Reports Sad
Physical Exam
-
General: Appears Chronically Ill and Cachetic
Cardiology: Normal Sinus Rhythm, S1, S2 and No Murmur
Pulmonary: Rhonchi (Few, scattered)
GI: Soft (Nontender to light and deep palpation. Large liver)
Skin: Warm and Dry
Psych: Intact Judgement/Insight
Labs
Lab Results
WBC 10.7 10^3/uL (4.8-10.8) 10/02/24 06:10
RBC 3.99 10^6/uL (4.20-5.40) L 10/02/24 06:10
Hgb 10.5 g/dL (12.0-16.0) L 10/02/24 06:10
Hct 31.8 % (37.0-47.0) L 10/02/24 06:10
MCV 79.7 fL (81.0-99.0) L 10/02/24 06:10
MCH 26.3 pg (27.0-31.0) L 10/02/24 06:10
MCHC 33.0 g/dL (33.0-37.0) 10/02/24 06:10
RDW 17.1 % (11.5-14.5) H 10/02/24 06:10
Plt Count 182 10^3/uL (130-400) 10/02/24 06:10
MPV 9.7 fL (7.4-10.4) 10/02/24 06:10
Abs Immat Gran (auto) 0.0 10^3/uL (0-0.05) 09/24/24 15:58
Absolute Neuts (auto) 7.6 10^3/uL (1.4-6.5) H 09/24/24 15:58
Absolute Lymphs (auto) 0.8 10^3/uL (1.2-3.4) L 09/24/24 15:58
Absolute Monos (auto) 0.7 10^3/uL (0.1-0.6) H 09/24/24 15:58
Absolute Eos (auto) 0.1 10^3/uL (0-0.7) 09/24/24 15:58
Absolute Basos (auto) 0.1 10^3/uL (0-0.2) 09/24/24 15:58
Immature Gran % 0.3 % (0-0.5) 09/24/24 15:58
Neutrophils % 82.8 % (42.2-75.2) H 09/24/24 15:58
Lymphocytes % 8.3 % (20.5-51.1) L 09/24/24 15:58
Monocytes % 7.2 % (1.7-9.3) 09/24/24 15:58
Eosinophils % 0.7 % (0-6) 09/24/24 15:58
Basophils % 0.7 % (0-2) 09/24/24 15:58
Creatinine 0.6 mg/dL (0.6-1.0) 10/02/24 06:10
Vital Signs
Vital Signs
Temp Pulse Resp BP Pulse Ox
98.0 F 85 16 139/70 94
10/01/24 23:24 10/02/24 08:02 10/01/24 23:24 10/02/24 08:02 10/01/24 23:24
--- NOTE | 2024-10-02 09:45 | W.PN.HOSP.TC ---
Today's Communication/Plan
-
Oncology eval. ID eval. Discharge planning
Assessment / Plan
Assessment / Plan
Physical exam:
General: Acutely ill
HEENT: Normocephalic, Atraumatic and Moist Mucous Membranes
Respiratory: Clear to Auscultation; Negative Wheezes, Rales or Rhonchi
Cardiac: Irregular rate and rhythm, tachycardic, and S1/S2
GI: Soft, Nontender and Nondistended
Musculoskeletal: No Clubbing, No Cyanosis and No Edema
Neuro: Awake, Alert and Oriented, no neurological deficits
Psych: Anxious
A/P:
Squamous cell lung cancer (stage IV non-small cell lung cancer):
Status post IR biopsy on 09/30
On scheduled tramadol and Tylenol as needed
Added IV morphine as needed
Discussed with daughter today over the phone, [place]. They understand prognosis guarded and further testing will be pursued as outpatient with oncology and also discussed with family independence case manager for discharge disposition. I also broached the subject of
CODE STATUS and patient wants to be full code but she was DNR prior but with all this information they will revisit and get back to us.
Oncology consulted and appreciated input
Hyponatremia:
Suspect likely SIADH related and pain but further workup as below
Check urine osmolality, urine sodium, serum osmolarity
Start fluid restriction
Salt tablet
Monitor sodium closely
Febrile illness:
No clear etiology ?central fever
ID consult appreciated-ID recommended hold off on antibiotics and continue to monitor
New onset A-fib, paroxysmal:
Cardiology reconsulted and started her on amiodarone
Discontinue heparin drip since INR therapeutic
Continue warfarin
Echo normal EF. Moderate mitral MR. Trace aortic regurgitation. Mild tricuspid regurgitation. Normal regional wall motion. Mild concentric left ventricular hypertrophy. Normal diastolic function.
History of DVT/protein C deficiency/drug:
On warfarin--> INR therapeutic today 2.71
Hematology will discuss other options as outpatient but for now recommend to continue
Mental status changes (acute delirium, now resolved):
Back to baseline
Psychiatry evaluated the patient during this hospital stay.
Discontinued Zyprexa
MRI negative for brain metastasis although limited due to motion
Adjustment disorder with mixed emotional features and anxiety:
Emotional support as needed
Hypothyroidism:
Continue levothyroxine 75 mcg p.o. daily
GERD:
Continue PPI
Other medical problems
History of cerebral aneurysm in the 70s
History of IBS
DVT prophylaxis:
On warfarin
CODE STATUS:
Full code
Total time spent on today's encounter was 52 minutes which included time spent in counseling the patient/family regarding diagnosis and treatment plan as listed above, goals of care, and symptom management. Case was discussed with nursing staff,
specialists, and care coordinators/case management. All labs and imaging personally reviewed by me. Remainder the time spent in detailed review of previous records, lab data, imaging, and other medical provider documentation.
Anticipated Discharge: 24 - 48 hours
Subjective/Interval History
-
Date of Service: October 02, 2024
Patient with persistent cough. No chest pain or worsening shortness of breath. Afebrile today
Objective Data
-
Labs:
Laboratory Results
10/02/24 10/02/24
06:10 14:00
WBC 10.7
Hgb 10.5 L
Hct 31.8 L
Plt Count 182
PT 29.1 H
INR 2.71
APTT 113.4 H Pending
Sodium 125 L D
Potassium 4.3
Chloride 98
Carbon Dioxide 23
BUN 12
Creatinine 0.6
Glucose 119 H
Calcium 9.4
Vital Signs:
Vital Signs
Temp Pulse Resp BP Pulse Ox
97.5 F 85 22 139/70 98
10/02/24 07:20 10/02/24 08:02 10/02/24 07:20 10/02/24 08:02 10/02/24 07:20
I&O
10/01/24 10/02/24 10/03/24
06:59 06:59 06:59
Intake Total 880 / 880
Balance 880 / 880
[2024-10-02] MEDS: ROBITUSSIN AC 10 ML PO ×3 (10:36→23:14)
[2024-10-02] MEDS: SODIUM CHLORIDE 1 GRAM PO ×2 (10:36→20:50)
[2024-10-02 10:48] LABS: Osmolality Serum 264 mOsm/kg (275-300)
[2024-10-02 11:02] LABS: Blood Urea Nitrogen 11 mg/dl (7-17); Calcium 9.3 mg/dl (8.4-10.2); Carbon Dioxide 23 mmol/L (22-30); Chloride 97 mmol/L (98-107); Estimated Creatinine Clearance 64 ml/min; Glucose 100 mg/dl (70-99); Potassium 4.5 mmol/L (3.5-5.1); Sodium 125 mmol/L (135-145); eGFR > 60.00
[2024-10-02] MEDS: ANESTHETIC LOZENGE 1 LOZENGE PO ×2 (11:31→18:11)
--- NOTE | 2024-10-02 13:59 | CM ---
Reviewed the chart notes and spoke with the patient and daughter at the bedside. Requested a referral be sent to [facility]. Referral was previously sent. CM spoke with [facility] Liaison. [facility] is offering a
bed at discharge. Patient and daughter informed. CM continues to be available to patient/family and is monitoring medical plan for needs at discharge.
Plan: Discharge to [facility] when medically stable. No precert required.
--- NOTE | 2024-10-02 16:47 | W.PN.CARDCBS ---
Today's Communication / Plan
-
amiodarone 200mg BID for 1 month then 200mg daily
continue coumadin
toprol 12.5mg daily
will arrange OP cardiac follow up
Impression / Plan
-
PCP: Dr. Ness Elizabeth
Card: None prior to admission
Assessment:
Admitted with abnormal CXR and possible lung malignancy 09/24/2024
Right lung mass involving mediastinum and liver
Paroxysmal A-fib with RVR
Spontaneous conversion to SR 09/26/2024
Recurrence of A-fib with RVR 09/30/2024
Suspected local metastatic invasion of adjacent structures including the LA possibly contributing to atrial arrhythmia
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
DVT
Stroke/cerebral aneurysms 1970s
Hypothyroidism
Gastroesophageal reflux disease
Hyponatremia
CT chest abdomen and pelvis 09/24/2024:
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
left atrium.
Multiple pulmonary metastases.
Fluid attenuation hepatic lesions favored to represent cysts, but hepatic metastases are not completely excluded.
Echo 09/25/24: normal LV size and function, no WMA, mod MR, mild TR, trace pericardial effusion. There is no mass seen abutting the heart.
Plan:
- Presented with cough, shortness of breath, weight loss
- Concern for metastatic cancer by imaging
- Cardiology consulted for atrial fibrillation. She spontaneously converted to sinus rhythm and has remained in sinus rhythm without recurrence on review of telemetry
- Currently on amiodarone 200 mg 3 times daily, would plan for 200 mg twice daily for 1 month then decrease to 200 mg daily
- Will add low-dose Toprol
- Patient with known protein C deficiency for which she is chronically on warfarin. IV heparin bridge stopped as INR now therapeutic at 2.7. Goal INR 2.5-3.5. Continue Coumadin
- Echo as noted above showed trace pericardial effusion could represent malignant pericardial effusion, but was trace to small and no evidence of hemodynamic compromise. Additionally there was no evidence of mass effect or impingement on any
cardiac structure although initial CT in the ER on 09/24/2024 suggested possible invasion of adjacent structures including the left atrium
- Management of hyponatremia per primary service, 125 on 10/02
- Will arrange cardiology follow up
- Unfortunately overall prognosis poor
- Will plan to sign off
- Discussed with nursing
Progress Note - Contracts Representative
Subjective
Date of Service: October 02, 2024
Reports some cough
Objective
Labs:
10/02/24 06:10
10/02/24 10:21
Labs
Hgb 10.5 g/dL (12.0-16.0) L 10/02/24 06:10
Hct 31.8 % (37.0-47.0) L 10/02/24 06:10
Plt Count 182 10^3/uL (130-400) 10/02/24 06:10
PT 29.1 Sec (11.4-14.6) H 10/02/24 06:10
INR 2.71 10/02/24 06:10
APTT Cancelled 10/02/24 14:00
Sodium 125 mmol/L (135-145) L 10/02/24 10:21
Potassium 4.5 mmol/L (3.5-5.1) 10/02/24 10:21
BUN 11 mg/dl (7-17) 10/02/24 10:21
Creatinine 0.6 mg/dL (0.6-1.0) 10/02/24 10:21
Glucose 100 mg/dl (70-99) H 10/02/24 10:21
Vital Signs and I&O:
Vital Signs
Temp Pulse Resp BP Pulse Ox
99.2 F 91 24 149/81 94
10/02/24 15:00 10/02/24 15:41 10/02/24 15:00 10/02/24 15:41 10/02/24 15:00
Vital Signs
Temp Pulse Resp BP Pulse Ox
99.2 F 91 24 149/81 94
10/02/24 15:00 10/02/24 15:41 10/02/24 15:00 10/02/24 15:41 10/02/24 15:00
Intake & Output
09/30/24 10/01/24 10/02/24 10/03/24
07:59 07:59 07:59 07:59
Intake Total 880 / 880
Balance 880 / 880
Physical Exam
Physical Exam
GEN: No distress, awake, alert, oriented x3
HEENT: supple, anicteric, mmm, eomi
LUNGS: CTA B/L, no wheezes
CV: Reg, S1/S2, no murmur
ABD: soft, BS+, NT/ND
EXT: No cyanosis, clubbing, edema
NEURO: Gross non-focal
SKIN: Warm, pink, dry. No rash
[2024-10-02] MEDS: COUMADIN 2.5 MG PO (18:05)
[2024-10-02] MEDS: TOPROL XL 12.5 MG PO (18:05)
[2024-10-02] MEDS: ULTRAM 50 MG PO (20:50)
[2024-10-02] MEDS: XANAX 0.25 MG PO (23:48)
[2024-10-03] VITALS (35 sets, daily range): BP systolic 61–154; BP diastolic 45–96; PULSE 2; BMI 25.3
[2024-10-03] MEDS: VENTOLIN NEBULES 2.5 MG INH (03:51)
[2024-10-03] MEDS: MORPHINE SULFATE 2 MG IV (03:56)
[2024-10-03 04:08] LABS: Glucose - Point of Care 123 mg/dl (70-99)
[2024-10-03] MEDS: LOPRESSOR 5 MG IV (04:17)
[2024-10-03 04:27] LABS: B.E. -0.8 mmol/L; HCO3 29.9 mmol/L (21-28); PO2 236 mmHg (83-108)
--- NOTE | 2024-10-03 04:30 | PTCARENOTE ---
Patient woken up with c/o SOB/ unable to cough up the secretions/ SOB/ extremely anxious/ panicking. Patient's oxygen sat- 84% on 3L which is a change from earlier. Sharonda FOUNTAIN/ RT made aware. Given morphine for SOB/ anxiety as per LOW VOLTAGE TECHNICIAN advise.
--- NOTE | 2024-10-03 04:30 | RR ---
A Rapid Response was called on this patient, please see Rapid Response form.
[2024-10-03 04:33] LABS: PCO2 84 mmHg (32-35); pH 7.16 (7.35-7.45)
[2024-10-03 04:44] LABS: % Basophils 0.5 % (0-2); % Eosinophils 0.7 % (0-6); % Immature Granulocytes 0.6 % (0-0.5); % Lymphocytes 12.2 % (20.5-51.1); Absolute Basophils 0.1 10^3/uL (0-0.2); Absolute Eosinophils 0.1 10^3/uL (0-0.7); Absolute Immature Granulocytes 0.1 10^3/uL (0-0.05); Absolute Lymphocytes 1.5 10^3/uL (1.2-3.4); Absolute Monocytes 1.5 10^3/uL (0.1-0.6); Absolute Neutrophils 9.4 10^3/uL (1.4-6.5); Hematocrit 37.9 % (37.0-47.0); Hemoglobin 12.1 g/dL (12.0-16.0); Mean Corp Hgb Conc. 31.9 g/dL (33.0-37.0); Mean Corpuscular Hgb 26.1 pg (27.0-31.0); Mean Corpuscular Volume 81.7 fL (81.0-99.0); Mean Platelet Volume 9.6 fL (7.4-10.4); Nucleated Red Blood Cells % 0 %; Platelet Count 260 10^3/uL (130-400); Red Blood Cell Count 4.64 10^6/uL (4.20-5.40); Red Cell Dist. Width 17.3 % (11.5-14.5); White Blood Cell Count 12.7 10^3/uL (4.8-10.8)
[2024-10-03 04:55] LABS: INR 3.01; PT 31.1 Sec (11.4-14.6)
[2024-10-03 04:55] LABS: Lactic Acid 1.1 mmol/L (0.7-2.0)
[2024-10-03 04:56] LABS: APTT 30.1 Sec (23.4-35.0)
[2024-10-03] MEDS: LASIX 20 MG IV (04:58)
--- NOTE | 2024-10-03 05:05 | PTCARENOTE ---
Pt arrived to floor on 15LNRB. Minimally responsive, tachypneic, increased WOB, placed on bipap, 20mg lasix given, arce placed. awaiting labs. NSR 90bpm.
[2024-10-03 05:06] LABS: Blood Urea Nitrogen 13 mg/dl (7-17); Calcium 9.6 mg/dl (8.4-10.2); Carbon Dioxide 25 mmol/L (22-30); Chloride 97 mmol/L (98-107); Estimated Creatinine Clearance 64 ml/min; Glucose 132 mg/dl (70-99); Potassium 5.1 mmol/L (3.5-5.1); Sodium 128 mmol/L (135-145); eGFR > 60.00
[2024-10-03 05:07] LABS: NT-proBNP 493 pg/ml; Troponin I < 0.012 ng/ml
--- NOTE | 2024-10-03 05:28 | RR ---
A Rapid Response was called on this patient, please see Rapid Response form.
Critical care team called bedside. Per Primary RN pt. w. persistent cough all night, upon awakening was noted to have desaturated to low 80s on 3L --> primary rn increased 02 to 6L RT bedside placed NRB recovered quickly to 100 SP02. ABG/Serum
rainbow/CXR film completed --> acidosis noted on ABG House BRASS CUTTER bedside orders for IMU for PAP therapy.
Pt. transferred to IMU bed via RT + 2 critical care RNs.
--- NOTE | 2024-10-03 06:11 | W.PN.UPDATE ---
Update Note
Progress Note Update
RR - Per primary RN patient woke up with respiratory distress SPO2 in 80s on 3L. Upon assessment, patient's lungs course, tachypneic, hypertensive, HR in 100s sinus, increased work of breathing. O2 titrated up to NRB quickly. Patient given 2mg
morphine, Rx CXR and labs. ABG shows pt in acidotic state. Patient transferred to IMU for BIPAP and closer monitoring. Once in IMU small dose of Lasix given, and arce catheter placed for retention. Attempted to reach out to daughter Selma x2, no
answer. L/M to call back.
[2024-10-03 06:13] LABS: Urine Albumin 2+ (Neg - Trace); Urine Bilirubin Negative (Negative); Urine Character Clear (Clear); Urine Color Yellow; Urine Glucose Negative (Negative); Urine Ketone Negative (Negative); Urine Leukocyte Negative (Negative); Urine Nitrite Negative (Negative); Urine Occult Blood Negative (Negative); Urine Urobilinogen 1+ (Neg - 1+)
[2024-10-03 06:19] LABS: B.E. -2.1 mmol/L; HCO3 28.9 mmol/L (21-28); O2 Saturation % 86.5 % (94-98); PO2 62 mmHg (83-108)
[2024-10-03 06:22] LABS: PCO2 83 mmHg (32-35); pH 7.15 (7.35-7.45)
[2024-10-03 06:24] LABS: Osmolality Urine 336 mOsm/kg (300-900)
--- NOTE | 2024-10-03 06:34 | PTCARENOTE ---
Addendum entered by Clara Pace RN 10/03/24 06:44:
Levophed, Fentanyl, and Propofol ordered/started on patient, see med titration flowsheets on worklist.
Original Note:
Pt upgraded from IMU to ICU room 3364 at 0620, pt arrived on bipap 18/5, lethargic, tachypneic, increased WOB. SEMICONDUCTOR ASSEMBLER immediately at bedside to intubate, pt intubated at 0631, #8.0 22cm at lip, AC 20/350/100/5. Given rocuronium and propofol prior to
intubation. Pt became hypotensive immediately following intubation, requiring push doses of phenylephrine from SEMICONDUCTOR ASSEMBLER. Levophed being ordered by ICU FOOD TRAY ASSEMBLER Mary Roberto. SR 90s on monitor, after being intubated SpO2 99%.
[2024-10-03] MEDS: SYNTHROID PO (06:38)
[2024-10-03] MEDS: SUBLIMAZE 100 IV (06:40)
[2024-10-03] MEDS: DIPRIVAN 100 IV ×3 (06:40→20:02)
[2024-10-03] MEDS: LEVOPHED 250 IV ×4 (06:41→20:02)
[2024-10-03 06:47] LABS: Urine Bacteria Few (Negative); Urine Mucus Few; Urine Red Blood Cell 0-2 /HPF (0-2); Urine White Cell 0-2 /HPF (0-5)
--- NOTE | 2024-10-03 06:48 | W.PN.UPDATE ---
Update Note
Progress Note Update
No improvement with BIPAP. Discussed case with Hospitalist and ICU ROMAN. Pt tx to ICU.
--- NOTE | 2024-10-03 06:50 | CON.INTV ---
Consultation
Consultation Request
Date/Time Consultation Requested: 10/03/2024
Date/Time Consultation Performed: 10/03/2024
Requesting Provider: Rachael Palacios
Performing Provider: John Maya
Reason for Consultation: Respiratory failure
Medical History
-
History of Present Illness:
84-year-old female with history of protein C deficiency, DVT, stroke/cerebral aneurysm in , presents with 30 pound weight loss, hemoptysis, cough for many months, who presented on 09/25/2024 with increased shortness of breath and emesis. CT
imaging revealed 12.3 cm right lower lobe mass with invasion into the left atrium, right hepatic lobe and adrenal gland with multiple pulmonary metastases.
During her stay, patient had an IR guided biopsy of right lower lobe which was positive for keratinizing squamous cell carcinoma of lung. Patient had been seen by pulmonary, cardiology, hematology oncology, as well as psychiatry service during the
hospital stay. 10/02 she had an episode of fever following which she had an x-ray which was not significantly changed and was also evaluated by infectious disease service.
On the morning of 10/03, patient woke up with respiratory distress and was hypoxic. She was placed on supplemental oxygen quickly increased to nonrebreather and a stat blood gas showed significant hypercapnia. She had very rhonchorous breath
sounds and was in respiratory distress. She was transferred to IMU and was placed on BiPAP. Patient failed to improve with BiPAP and follow-up gas showed worsening hypoxia and persistent hypercapnia. Patient was subsequently transferred to ICU
and emergently intubated and mechanically ventilated. Compounder Helper consultation was requested for further input.
PMH: Questionable schizophrenia/bipolar disorder, history of GERD, hypothyroidism, protein C deficiency with history of DVT, IBS, chronic venous stasis changes. History of hysterectomy, back surgery, history of stroke with cerebral aneurysm in the
1970s
Past Medical History
Past Medical History: None (See above)
Past Surgical History: None (See above)
Social History
Tobacco: Non-smoker
Alcohol: None
Drug: None
Personal:
Living: Alone
Employment: Not Employed
Family History
Family History: Other (1 daughter who is healthy. Family history negative for cancer, blood clots)
Allergies / Home Medications
Allergies
Allergy/AdvReac Type Severity Reaction Status Date / Time
Sulfa (Sulfonamide Allergy Unknown Verified 09/24/24 15:51
Antibiotics)
Home Medications
�Medication �Instructions �Recorded �Confirmed �Last Taken �Type
levothyroxine 75 mcg tablet 75 mcg PO DAILY@06 Thyroid 01/04/21 09/26/24 09/24/24 History
Lactobac no.2-Bifidobac no.1-S. 1 cap PO DAILY Supplement 01/02/24 09/24/24 09/24/24 History
thermo 112.5 billion cell capsule
(Visbiome)
calcium carbonate (Calcium 600) 600 mg PO DAILY Supplement 01/02/24 09/24/24 09/24/24 History
cyanocobalamin 2 mg-levomefolate 1 tab PO DAILY Supplement 01/02/24 09/24/24 09/24/24 History
brittanie 1.13 mg-pyridoxine 25 mg
tablet (Foltx)
dexlansoprazole 30 mg 30 mg PO QPM Gastrointestinal Issue 01/02/24 09/24/24 09/24/24 History
capsule,biphase delayed release
furosemide 20 mg tablet 20 mg PO DAILY Fluid 01/02/24 09/24/24 09/24/24 History
Retention/Swelling
gabapentin 300 mg capsule 300 mg PO TID Pain 01/02/24 09/24/24 01/02/24 History
warfarin 2.5 mg tablet 5 mg PO MOFR@1930 Blood Clot 01/02/24 09/24/24 09/24/24 History
Prevention/Tx
warfarin 2.5 mg tablet (Jantoven) 2.5 mg PO SUTUWETHSA@1930 Blood 01/02/24 09/24/24 09/24/24 History
Clot Prevention/Tx
doxycycline hyclate 100 mg capsule 100 mg PO BID #20 caps 01/03/24 09/24/24 Unknown Rx
tramadol 50 mg tablet 50 mg PO HS Pain 09/26/24 09/26/24 Unknown History
Review of Systems
-
Unable to Obtain full review of systems at this time due to: Patient Intubation
Vitals / Labs / Diagnostic Testing
Vital Signs
Temp Pulse Resp BP Pulse Ox
98.6 F 96 20 121/80 99
10/03/24 04:50 10/03/24 05:15 10/03/24 05:15 10/03/24 05:15 10/03/24 06:48
Laboratory Results
10/02/24 10/03/24 10/03/24
14:00 04:19 04:30
PT 31.1 H
INR 3.01
APTT Cancelled 30.1
pH 7.16 L*
pCO2 84 H*
pO2 236 H
HCO3 29.9 H
O2 Delivery Level
10/03/24
06:10
PT
INR
APTT
pH 7.15 L*
pCO2 83 H*
pO2 62 L
HCO3 28.9 H
O2 Delivery Level
Microbiology
10/01/24 13:28 Blood/Venous Blood Culture - Preliminary
No Growth in 24 hours- Final report to follow
10/01/24 11:05 Blood/Venous Blood Culture - Preliminary
No Growth in 24 hours- Final report to follow
Diagnostic Testing:
Physical Exam
-
HEENT: Normocephalic
Cardiovascular: S1/S2
Respiratory: Rales and Rhonchi
GI: Soft and Non Distended
Neurology: Other (Currently sedated)
Skin: Warm
General: Comfortable
Assessment
-
#1. Acute hypoxic and hypercapnic respiratory failure, ?Aspiration pneumonia
- ABG, 7.15, 83, 62. Patient was started on BiPAP initially but failed to respond, emergently intubated and mechanically ventilated 10/03
- Chest x-ray shows increased right upper lobe opacity also patient noted to be hypotensive requiring pressor concerning for pneumonia and septic shock
- Considering relatively rapid onset of respiratory distress and initial hypoxia, suspect this patient might have aspiration
- Follow-up on blood cultures, send sputum culture, initiate broad-spectrum antibiotics, Zosyn IV. MRSA screen negative
- Postintubation chest x-ray and ABG ordered
- Continue volume assist-control, 350/20/100%/5 for now
- Sedation with propofol and fentanyl
- In view of b/l rhonchi, start Duoneb qid and IV Solumedrol 40 mg daily
- In view of change in mental status, will get CT Head non contrast stat, since INR is 3.
#2. Shock, ?septic vs related to intubation and sedation.
- Will give 500 mL LR bolus
- Hold metoprolol
- Continue Levophed at 10 and titrate as needed to keep MAP above 65
- Broad-spectrum antibiotics initiated, follow-up on cultures
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
- Hematology oncology service on case
#4. Paroxysmal atrial fibrillation
- Cardiology service on case
- Continue amiodarone. Hold metoprolol in view of pressor requirement.
- if CT Head negative, will continue Coumadin
#5. History of DVT and protein C deficiency.
-Patient on Coumadin, INR 3 this morning.
#6. Hemoptysis on admission
- Suspect related to underlying malignancy
- No further episodes, has been on Coumadin and fully anticoagulated
Other medical diagnoses:
- Hyponatremia. 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 Urine sodium 70, urine osmolality 336. Continue salt tablets, monitor serial labs.
- Hypothyroidism
- Gastroesophageal reflux disease
- History of IBS
- History of cerebral aneurysm in the 70s
- Adjustment disorder
Critical Care time 65 mins -- The patient is admitted for acute critical illness for the treatment of vital organ failure and/or prevention of further life-threatening conditions. Total care includes time spent in review of history, physical exam,
medications, hemodynamic/ventilator parameters, laboratory data, imaging and discussion with house staff, pharmacy, respiratory therapy, arborer, and nursing.
Data:
MRI Brain 09/2024: Evaluation is significantly limited by patient unintentional motion artifact.
No convincing acute intracranial abnormality noted. Chronic senescent changes.
No convincing MR evidence for intracranial metastases.
CT Chest/ABD 08/2024: Large malignant mass in the lower right hemithorax measuring up to 12.3 cm centered within the right lower lobe with significant invasion of adjacent structures including the posterior superior right hepatic lobe, the right
adrenal gland, and the left atrium.
Multiple pulmonary metastases.
Fluid attenuation hepatic lesions favored to represent cysts, but hepatic metastases are not completely excluded.
Other chronic findings, as detailed above.
ECHO 08/2024: Normal left ventricular chamber size. Normal left ventricular systolic
function. Left ventricular ejection fraction is 60-65%. Normal regional wall
motion. Mild concentric left ventricular hypertrophy. Normal diastolic
function.
Normal right ventricular size and function.
Mitral valve opens normally. Thickened mitral valve leaflets. Moderate mitral
regurgitation.
Aortic valve sclerosis. Trace aortic regurgitation.
Mild tricuspid regurgitation. Estimated pulmonary artery pressure of 20-25
mmHg.
IR guided RLLL lung biopsy 09/2024: Keratinizing Squamous cell cancer
--- NOTE | 2024-10-03 06:54 | W.PN.ANESINT ---
Anesthesia Intubation Note
- Intubation Note
Intubation Note:
Diagnosis: respiratory distress
Blade: glidescope
Tube Size: 8.0
Depth: 22cm
Side Taped: center
Drugs Used: 50mg propofol, 50mg rocuronium, 600mcg phenylephrine
Grade View: grade 1 view via live glidescope
EtCO2 Present: ETCO2 color change present on ETCO2 detector
Atraumatic: atraumatic
Attempts: 1 attempt
Insertion Start and Stop Time: start 616 end 620
SaO2 Pre: 88
SaO2 Post: 100
Glidescope Used: yes
Other Airway Adjustments: none
Pre-Oxygenated: via bipap
Portable Chest X-Ray: ordered
RSI: no
Suctioned: yes
Bilateral Breath Sounds Confirmed: bilateral breath sounds confirmed
Vent Settings:
Settings per _X__Attending Physician
Noelle Ordoñez CRNA
[2024-10-03 06:57] LABS: Urine Sodium 70 mmol/L (30-90)
--- NOTE | 2024-10-03 07:46 | W.PN.CARDCBS ---
Today's Communication / Plan
-
Now intubated with respiratory failure. Continue ventilator management.
Remains in sinus rhythm but did have brief atrial fibrillation. Continue amiodarone via tube 200 mg 3 times a day.
Continue Levophed for blood pressure support. Hold Toprol
Will hold off on diuresis for now. Peers to be related to aspiration.
Agree with consideration for head CT while on Coumadin and metastatic cancer. INR 3.0
Long-term prognosis remains very poor.
Impression / Plan
-
PCP: Dr. Ness Elizabeth
Card: None prior to admission
Assessment:
resp distress/aspiration/VDRF
Admitted with abnormal CXR and possible lung malignancy 09/24/2024
Right lung mass involving mediastinum and liver
Paroxysmal A-fib with RVR
Spontaneous conversion to SR 09/26/2024
Recurrence of A-fib with RVR 09/30/2024
Suspected local metastatic invasion of adjacent structures including the LA possibly contributing to atrial arrhythmia
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
DVT
Stroke/cerebral aneurysms 1970s
Hypothyroidism
Gastroesophageal reflux disease
Hyponatremia
CT chest abdomen and pelvis 09/24/2024:
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
left atrium.
Multiple pulmonary metastases.
Fluid attenuation hepatic lesions favored to represent cysts, but hepatic metastases are not completely excluded.
Echo 09/25/24: normal LV size and function, no WMA, mod MR, mild TR, trace pericardial effusion. There is no mass seen abutting the heart.
Plan:
-As overnight noted. Patient had respiratory decompensation and possible aspiration requiring admission and back to the intensive care unit.
-Did have some brief atrial fibrillation in the setting but is converted back into sinus rhythm. Recommend place tube and continue amiodarone 200 mg p.o. 3 times daily for now.
-Continue Levophed for blood pressure support. Hold Toprol for now.
- Patient with known protein C deficiency for which she is chronically on warfarin. IV heparin bridge stopped as INR now therapeutic at 3.01. Goal INR 2.5-3.5.
- Echo as noted above showed trace pericardial effusion could represent malignant pericardial effusion, but was trace to small and no evidence of hemodynamic compromise. Additionally there was no evidence of mass effect or impingement on any
cardiac structure although initial CT in the ER on 09/24/2024 suggested possible invasion of adjacent structures including the left atrium
- proBNP 483. This is slightly higher but still relatively normal cardiac troponin negative. Would hold on diuresis for now.
-Still with hyponatremia and sodium of 128. Continue to follow.
- Discussed with compliance review specialist. Planning for possible head CT while on Coumadin. Would hold Coumadin until head CT performed to rule out any significant bleeding with metastatic cancer
- Long-term prognosis overall poor.
cc time 33 min
Progress Note - Gravity Meter Operator
Subjective
Date of Service: October 03, 2024
Events overnight noted. Patient with respiratory decompensation requiring intubation. She also has a respiratory acidosis. She did have some brief atrial fibrillation in the setting but is now back in sinus rhythm.
Objective
Labs:
Labs
Hgb 12.1 g/dL (12.0-16.0) 10/03/24 04:19
Hct 37.9 % (37.0-47.0) 10/03/24 04:19
Plt Count 260 10^3/uL (130-400) D 10/03/24 04:19
PT 31.1 Sec (11.4-14.6) H 10/03/24 04:30
INR 3.01 10/03/24 04:30
APTT 30.1 Sec (23.4-35.0) 10/03/24 04:30
Sodium 128 mmol/L (135-145) L 10/03/24 04:19
Potassium 5.1 mmol/L (3.5-5.1) 10/03/24 04:19
BUN 13 mg/dl (7-17) 10/03/24 04:19
Creatinine 0.6 mg/dL (0.6-1.0) 10/03/24 04:19
Glucose 132 mg/dl (70-99) H 10/03/24 04:19
Troponins
10/03/24
04:19
Troponin I < 0.012
Vital Signs and I&O:
Vital Signs
Temp Pulse Resp BP Pulse Ox
96.0 F L 87 13 87/62 99
10/03/24 06:56 10/03/24 06:51 10/03/24 06:51 10/03/24 06:51 10/03/24 06:51
Vital Signs
Temp Pulse Resp BP Pulse Ox
96.0 F L 87 13 62 99
10/03/24 06:56 10/03/24 06:51 10/03/24 06:51 10/03/24 06:51 10/03/24 06:51
Intake & Output
10/01/24 10/02/24 10/03/24 10/04/24
06:59 06:59 06:59 06:59
Intake Total 880 / 880 480 / 480
Output Total 450 / 450
Balance 880 / 880 30 / 30
Physical Exam
Physical Exam
GEN: Intubated and sedated
HEENT: supple, anicteric, mmm, ET tube
LUNGS: bilat rhonchi R>L
CV: Reg, S1/S2, 1/6 syst LSB, no gallop
ABD: soft, BS+, NT/ND
EXT: No edema
NEURO: Gross non-focal
SKIN: No rash
--- NOTE | 2024-10-03 08:00 | PTCARENOTE ---
Assumed care of pt at 0715 following shift report. Pt received intubated and on vent at ordered settings as documented. Following gtts infusing: Fentanyl @ 25mcg/hr, Propofol @ 10mcg/kg/min, Levophed at 10 mcg/min. Pt withdraws/grimaces to pain but
otherwise not responsive. Bilateral wrist restraints in use to protect lines. Pupils 2mm biltaterally w/ sluggish response. Dr Maya aware of findings. Orders received for CT of head. Colindres patent and draining clear phil urine. Physical assessment
completed as documented. Turned/repositioned and comfort care provided. Ordered labs including sputum specimen obtained and sent to lab.
[2024-10-03 08:05] LABS: Hematocrit 37.3 % (37.0-47.0); Hemoglobin 11.8 g/dL (12.0-16.0); Mean Corp Hgb Conc. 31.6 g/dL (33.0-37.0); Mean Corpuscular Hgb 26.1 pg (27.0-31.0); Mean Corpuscular Volume 82.5 fL (81.0-99.0); Mean Platelet Volume 9.8 fL (7.4-10.4); Platelet Count 255 10^3/uL (130-400); Red Blood Cell Count 4.52 10^6/uL (4.20-5.40); White Blood Cell Count 11.4 10^3/uL (4.8-10.8)
[2024-10-03 08:07] LABS: Lactic Acid 1.5 mmol/L (0.7-2.0)
[2024-10-03 08:09] LABS: HCO3 27.5 mmol/L (21-28); O2 Saturation % 99.9 % (94-98); PCO2 51 mmHg (32-35); PO2 276 mmHg (83-108); pH 7.34 (7.35-7.45)
[2024-10-03 08:33] LABS: Blood Urea Nitrogen 14 mg/dl (7-17); Calcium 9.9 mg/dl (8.4-10.2); Carbon Dioxide 28 mmol/L (22-30); Chloride 95 mmol/L (98-107); Estimated Creatinine Clearance 43 ml/min; Glucose 121 mg/dl (70-99); Potassium 4.4 mmol/L (3.5-5.1); Sodium 130 mmol/L (135-145); Triglycerides 148 mg/dl (10-149); eGFR > 60.00
--- NOTE | 2024-10-03 09:15 | PTCARENOTE ---
Pt transported for CT scan of head at 0820- uneventful. Once returned to room, DHT placed per order and secured at 55cm. Portable CXR obtained per protocol. Pt tolerated well.
[2024-10-03] MEDS: DUONEB 3 ML INH ×4 (09:21→19:42)
--- NOTE | 2024-10-03 09:24 | W.PN.HOSP.TC ---
Today's Communication/Plan
-
Mechanical ventilation. Pressors. Antibiotics
Assessment / Plan
Assessment / Plan
Physical exam:
General: Acutely ill
HEENT: ETT in place. Normocephalic, Atraumatic and Moist Mucous Membranes
Respiratory: Coarse crackles in the bases; Negative Wheezes, Rales or Rhonchi
Cardiac: Irregular rate and rhythm, tachycardic, and S1/S2
GI: Soft, Nontender and Nondistended
Musculoskeletal: No Clubbing, No Cyanosis and No Edema
Neuro: Sedated on the vent
A/P:
Acute hypoxic and hypercapnic respiratory failure:
Patient deteriorated clinically earlier this morning and moved to ICU and intubated after attempted BiPAP
Continue mechanical ventilation
On antibiotics, steroids, bronchodilators, propofol and fentanyl drip
Customer Insight Analyst consulted
Suspected septic shock due to aspiration pneumonia:
Started on IV antibiotics, Zosyn
IV fluids
Hold antihypertensive
Continue pressors
Metabolic encephalopathy:
Likely related to sepsis
CT scan of the head to rule out intracranial abnormality in the setting of use of warfarin
Squamous cell lung cancer (stage IV non-small cell lung cancer):
Status post IR biopsy on 09/30
On scheduled tramadol and Tylenol as needed
Added IV morphine as needed
Discussed with daughter today over the phone, Selma. They understand prognosis guarded and further testing will be pursued as outpatient with oncology and also discussed with watch case polisher for discharge disposition. I also broached the subject of
CODE STATUS and patient wants to be full code but she was DNR prior but with all this information they will revisit and get back to us.
Oncology consulted and appreciated input
Hyponatremia:
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
New onset A-fib, paroxysmal:
Cardiology reconsulted and started her on amiodarone
Continue warfarin
Echo normal EF. Moderate mitral MR. Trace aortic regurgitation. Mild tricuspid regurgitation. Normal regional wall motion. Mild concentric left ventricular hypertrophy. Normal diastolic function.
History of DVT/protein C deficiency/drug:
On warfarin--> INR therapeutic today 3.01
Hematology will discuss other options as outpatient but for now recommend to continue
Adjustment disorder with mixed emotional features and anxiety:
Emotional support as needed
Hypothyroidism:
Continue levothyroxine 75 mcg p.o. daily
GERD:
Continue PPI
Other medical problems
History of cerebral aneurysm in the 70s
History of IBS
DVT prophylaxis:
On warfarin-INR 3.01 today
CODE STATUS:
Full code
Total Critical Care Time__40___ minutes. I was immediately available to the patient and staff. I personally examined, reviewed labs, diagnostic images/reports, interpretations, treatment plans, discussed patient care with other providers and
family or caregivers (if patient is unable to make decisions), entered orders as appropriate and documented the medical record.
Anticipated Discharge: > 48 hours
Subjective/Interval History
-
Date of Service: October 03, 2024
Patient seen and examined. She is on the ventilator.
Objective Data
-
Labs:
Laboratory Results
10/03/24 10/03/24 10/03/24
04:19 04:30 06:10
WBC 12.7 H
Hgb 12.1
Hct 37.9
Plt Count 260 D
PT 31.1 H
INR 3.01
APTT 30.1
HCO3 29.9 H 28.9 H
Sodium 128 L
Potassium 5.1
Chloride 97 L
Carbon Dioxide 25
BUN 13
Creatinine 0.6
Glucose 132 H
Calcium 9.6
10/03/24 10/03/24 10/03/24
07:42 07:54 07:55
WBC 11.4 H
Hgb 11.8 L
Hct 37.3
Plt Count 255
PT
INR
APTT
HCO3 Pending 27.5
Sodium 130 L
Potassium 4.4
Chloride 95 L
Carbon Dioxide 28
BUN 14
Creatinine 0.9
Glucose 121 H
Calcium 9.9
Vital Signs:
Vital Signs
Temp Pulse Resp BP Pulse Ox
96.0 F L 78 20 87/62 100
10/03/24 06:56 10/03/24 09:23 10/03/24 09:23 10/03/24 06:51 10/03/24 09:23
I&O
10/02/24 10/03/24 10/04/24
06:59 06:59 06:59
Intake Total 880 / 880 480 / 480
Output Total 450 / 450
Balance 880 / 880 30 / 30
[2024-10-03] MEDS: ZOSYN 50 IV ×3 (09:47→20:02)
[2024-10-03] MEDS: PROTONIX IV 40 MG IV (09:47)
[2024-10-03] MEDS: SOLU-MEDROL PF 40 MG IV (09:47)
[2024-10-03] MEDS: NSS (PRESERVATIVE FREE) 10 ML IV (09:47)
--- NOTE | 2024-10-03 10:24 | W.PN.ID1 ---
Date of Service
Date of Service: October 03, 2024
Today's Communication
Continue antibiotics.
Assessment / Plan
Fever
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
Hypoxemic respiratory failure/VDRF
Leukocytosis
Hypotension
Clinical sepsis
GERD
Hypothyroidism
Protein C deficiency (Hx DVT)
IBS
Venous insufficiency
Recommendations:
Agree with initiation of Zosyn. Suspect possible aspiration as inciting event. CXR reviewed and patient now with significant right upper lobe infiltrate
Monitor white count and temperature curve.
Sputum culture has been obtained; will follow.
Wean pressors as possible.
Will follow pending blood cultures.
Patient critically ill in intensive care unit, vent dependent and on pressors.
����������������������������������������������������������
Chief Complaint
-: Fever and Pneumonia
Subjective / Review of Systems
Patient seen and examined. Events overnight noted. Patient with respiratory distress early this a.m. prompting transfer to ICU. Patient is now intubated and on pressor.
Vital Signs / Physical Exam
Vital Signs
Vital Signs
Temp Pulse Resp BP Pulse Ox
97.6 F 78 20 87/62 100
10/03/24 08:00 10/03/24 09:23 10/03/24 09:23 10/03/24 06:51 10/03/24 09:23
Physical Exam
Constitutional: Acutely Ill and Non-toxic
Head: Other (ET tube in place.)
Cardiovascular: S1/S2; Negative S3/S4
Pulmonary: Rhonchi and Other (On vent.)
Gastrointestinal: Non Distended and Normal Bowel Sounds
Extremities: Edema; Negative Cyanosis
Neurological: Awake and Alert
Psychological: Calm
Objective Data
Lab Data
Lab Results
10/03/24 07:42
10/03/24 07:42
PT 31.1 Sec (11.4-14.6) H 10/03/24 04:30
INR 3.01 10/03/24 04:30
APTT 30.1 Sec (23.4-35.0) 10/03/24 04:30
Estimated Creat Clear 43 ml/min 10/03/24 07:42
Lactic Acid 1.5 mmol/L (0.7-2.0) 10/03/24 07:42
Total Bilirubin 0.6 mg/dl (0.2-1.3) 09/24/24 15:58
AST 27 U/L (14-36) 09/24/24 15:58
ALT 24 U/L (0-35) 09/24/24 15:58
Alkaline Phosphatase 73 U/L (38-126) 09/24/24 15:58
Most recent labs reviewed.
Micro Results:
10/03/24 08:13 Respiratory Culture - Pending
Tracheal Aspirate Gram Stain - Pending
10/01/24 13:28 Blood Culture - Preliminary
Blood/Venous No Growth in 24 hours- Final report to follow
10/01/24 11:05 Blood Culture - Preliminary
Blood/Venous No Growth in 24 hours- Final report to follow
09/25/24 06:12 MRSA Screen - Final
Nose No Methicillin Resistant Staphylococcus aureus isolated.
Imaging:
09/24/2024 CT C/A/P : Large malignant mass in the lower right hemithorax measuring 12.3 x 10.4 x 10.5 cm. This is centered within the right lower lobe with significant invasion of adjacent structures including the posterior right hepatic lobe, the
right adrenal gland, and the left atrium. Encasement and obstruction of the right middle and lower lobe bronchi. Complete atelectasis of the right middle lobe. Spiculated pulmonary metastases measuring 3.8 cm in the left upper lobe, 1.3 cm in the
right upper lobe, and 1.8 cm in the right upper lobe. Groundglass opacity in the apex of the right upper lobe may also be metastatic. Small right pleural effusion. No pneumothorax.
Please see full dictation for additional detail. Film personally viewed.
Care Review
Plan reviewed with: Physician (Critical care)
Total Time Spent with Patient (in minutes): Critical Care
--- NOTE | 2024-10-03 11:15 | PTCARENOTE ---
Rt SC TLC and Rt radial Wibaux placed at bedside by Dr Maya. Wibaux leveled to phlebostatic axis and transduced w/ waveform WNL. Portable CXR obtained. Resp Therapy tapering FiO2. No additional changes from previous assessment findings.
[2024-10-03] MEDS: PACERONE 200 MG PO ×2 (11:53→17:52)
[2024-10-03] MEDS: SODIUM CHLORIDE 1 GRAM PO ×2 (11:53→20:02)
[2024-10-03] MEDS: PROTONIX PO (11:53)
[2024-10-03] MEDS: TOPROL XL PO (11:54)
[2024-10-03] MEDS: NSS 500 IV (11:55)
--- NOTE | 2024-10-03 12:15 | PTCARENOTE ---
Pt's daughter here to visit, updated on pt's present condition, plan of care. Emotional support provided. Dtr expressing pt's wish for no heroic measures to be taken. Dr Maya made aware and to speak w/ dtr.
[2024-10-03] MEDS: SUBLIMAZE 50 MCG IV ×2 (12:49→16:21)
[2024-10-03] MEDS: LIDOCAINE 4% PATCH TOPICAL (14:24)
[2024-10-03 14:39] LABS: B.E. -0.4 mmol/L; HCO3 24.8 mmol/L (21-28); O2 Saturation % 99.7 % (94-98); PCO2 42 mmHg (32-35); PO2 225 mmHg (83-108); pH 7.38 (7.35-7.45)
--- NOTE | 2024-10-03 16:00 | PTCARENOTE ---
Pt medicated w/ Fentanyl boluses for vent dyssynchrony per protocol as documented in MAR. Pt requiring frequent ETT suctioning for thick pineda secretions. Pt repositioned, hygiene and comfort care provided. No additional changes from previous
assessment findings.
[2024-10-03] MEDS: NSS 1000 IV (17:15)
--- NOTE | 2024-10-03 17:15 | PTCARENOTE ---
Pt's MAP into 50's- Levophed increased from 10mcg/min- 18mcg/min to achieve MAP in mid 60's. Dr Maya made aware of increased pressor support needed as well as decreased urine output- order for Vasopressin and 1000ml NSS bolus received and given as
documented.
[2024-10-03] MEDS: PITRESSIN 100 IV (17:34)
[2024-10-03] MEDS: COUMADIN 2.5 MG TUBE (17:52)
--- NOTE | 2024-10-03 19:04 | OR.RPT ---
Operative Report
Operative Report
Right subclavian central venous catheter placement
Informed consent was obtained from patient's daughter via phone. Patient in septic shock on pressor therapy and needs central line access.
Bedside ultrasound was used to confirm patency of right subclavian vein. Under sterile condition area was subsequently cleaned and a full body drape was placed. 3 mL of lidocaine was injected locally for local anesthesia. Under sterile condition
and with an ultrasound probe in place, real-time long axis visualization and cannulation of subclavian vein was performed until blood was aspirated. Syringe was then detached and guidewire was advanced without any resistance. With guidewire in
place, needle was withdrawn. Ultrasound was used again to confirm positioning of guidewire inside the vein lumen. A small nicolás was placed at the skin level and a dilator was placed to about 50% of its length. Dilator was removed and a central
line catheter was threaded over the guidewire. Once catheter inserted guidewire was removed. Caps were placed on all 3 ports of central line. Sterile flushes were used to confirm withdrawal of blood and easy flushing of all 3 ports. Central
catheter was then sutured to skin and dressing was placed.
Complications: None
Blood loss: 1-2 ml
Chest x-ray: Without any evidence of pneumothorax, central line in appropriate location.
Date of Service: 10/03/2024
--- NOTE | 2024-10-03 19:05 | OR.RPT ---
Operative Report
Operative Report
Right Radial Arterial catheter placement
Informed consent was obtained from patient's daughter via phone. Patient in septic shock on pressor therapy and needs invasive blood pressure monitoring.
Bedside ultrasound was used to confirm patency of right radial artery. Under sterile condition area was subsequently cleaned and a drape was placed. Under direct ultrasound visualization,, radial artery was cannulated. Once blood was noted in the
chamber guidewire was advanced. Arterial catheter was subsequently advanced over the guidewire, and then guidewire was removed. Pressure tubing was subsequently attached to the catheter and arterial waveform was noted on the monitor. Subsequently
a dressing was placed.
Complications: None
Blood loss: <1 ml
Date of Service: 10/03/2024
[2024-10-03 20:07] LABS: B.E. -2.4 mmol/L; HCO3 23.2 mmol/L (21-28); O2 Saturation % 98.2 % (94-98); PCO2 42 mmHg (32-35); PO2 87 mmHg (83-108); pH 7.35 (7.35-7.45)
--- NOTE | 2024-10-03 20:21 | PTCARENOTE ---
Assumed care of pt. approx 1900.
Remains intubated/sedated. Tolerating ventilator settings pulling volumes, appropriate plateau/peak pressures. Sp02 99-100.
Sedation w. Diprivan analgesia w. fentanyl. See titration flow sheets for titration details.
Oliguric, phil urine via arce.
Sinus tach/ normothermic. uptitrating norepi, vasopressin added by day team. Arterial line correlating within 10 points with NIBP, vasopressor titrations based upon arterial access pressure metrics.
Family updated at bedside, all questions answered.
[2024-10-03 20:25] LABS: Blood Urea Nitrogen 14 mg/dl (7-17); Calcium 9.1 mg/dl (8.4-10.2); Carbon Dioxide 20 mmol/L (22-30); Chloride 101 mmol/L (98-107); Estimated Creatinine Clearance 64 ml/min; Glucose 146 mg/dl (70-99); Lactic Acid 2.3 mmol/L (0.7-2.0); Potassium 4.5 mmol/L (3.5-5.1); Sodium 127 mmol/L (135-145); eGFR > 60.00
--- NOTE | 2024-10-03 21:15 | PTCARENOTE ---
Norepi now max dose, icu lisandra notified orders to increase vaso to 0.04.
Family updated.
[2024-10-03] MEDS: PACERONE 200 MG TUBE (22:26)
[2024-10-03] MEDS: ROBITUSSIN 100 MG TUBE (22:43)
--- NOTE | 2024-10-03 23:18 | PTCARENOTE ---
Pt. remains maxed on norepi --> ICU ROMAN notified switch to x2 concentration. Vaso remains at 0.04.
Episodes of high peak pressure alarms, large volumes of bronze colored secretions with clot matter, RT notified, Lavaged bedside, sp02 to no improvement mid to high 80s, fi02 increased to 60%. ICU ROMAN aware.
[2024-10-03] MEDS: SOLU-CORTEF 50 MG IV (23:41)
[2024-10-03] MEDS: LEVOPHED 258 MG IV (23:42)
[2024-10-03 23:56] LABS: B.E. -2.2 mmol/L; HCO3 23.7 mmol/L (21-28); O2 Saturation % 99.1 % (94-98); PCO2 44 mmHg (32-35); PO2 96 mmHg (83-108); pH 7.34 (7.35-7.45)
--- NOTE | 2024-10-03 23:59 | PTCARENOTE ---
MAPs decreased to 50s icu ROMAN notified orders for Phenylephrine.
[2024-10-04] VITALS: BP 100/69
[2024-10-04 00:09] LABS: Lactic Acid 2.8 mmol/L (0.7-2.0)
[2024-10-04] MEDS: SUBLIMAZE 100 IV (01:03)
[2024-10-04] MEDS: ZOSYN 50 IV (01:05)
--- NOTE | 2024-10-04 02:56 | PTCARENOTE ---
Addendum entered by Augustine Cortes RN 10/04/24 03:44:
Large clot coughed up through ET tube, ICU ROMAN notified, RT increased fi02 to 100%.
Original Note:
RT notified of high pressure alarms, desaturation.
bagged w. RT large bronze sputum with clot material again out of et tube.
Fi02 increased.
[2024-10-04 03:38] LABS: B.E. -4.5 mmol/L; HCO3 22.1 mmol/L (21-28); O2 Saturation % 98.6 % (94-98); PCO2 46 mmHg (32-35); PO2 91 mmHg (83-108); pH 7.29 (7.35-7.45)
[2024-10-04] MEDS: LEVOPHED 258 MG IV ×2 (03:41→07:38)
[2024-10-04 03:53] LABS: INR 4.46; PT 41.9 Sec (11.4-14.6)
[2024-10-04 04:08] LABS: ALT (SGPT) 26 U/L (0-35); AST (SGOT) 23 U/L (14-36); Albumin 2.8 g/dl (3.5-5.0); Alkaline Phosphatase 97 U/L (38-126); Direct Bilirubin 1.8 mg/dl (0.0-0.4); Magnesium 1.7 mg/dl (1.6-2.3); Total Bilirubin 2.3 mg/dl (0.2-1.3); Total Protein 5.5 g/dl (6.3-8.2)
[2024-10-04 05:06] LABS: Blood Urea Nitrogen 18 mg/dl (7-17); Calcium 9.2 mg/dl (8.4-10.2); Carbon Dioxide 17 mmol/L (22-30); Chloride 102 mmol/L (98-107); Estimated Creatinine Clearance 43 ml/min; Glucose 112 mg/dl (70-99); Potassium 4.7 mmol/L (3.5-5.1); Sodium 127 mmol/L (135-145); eGFR > 60.00
[2024-10-04] MEDS: MAGNESIUM SULFATE 102 GRAMS IV (05:09)
[2024-10-04] MEDS: SOLU-CORTEF 50 MG IV (05:09)
[2024-10-04] MEDS: SYNTHROID 75 MCG TUBE (05:09)
[2024-10-04] MEDS: PITRESSIN 100 IV (05:10)
[2024-10-04] MEDS: DIPRIVAN 100 IV (05:11)
[2024-10-04 05:24] VITALS: BMI 25.4
[2024-10-04] MEDS: SODIUM BICARBONATE 1075 MEQ IV (05:45)
--- NOTE | 2024-10-04 07:38 | W.PN.INTV ---
Today's Communication / Plan
Recommendations
- Proceed to comfort focused care
- Terminal extubation later today
Assessment
-
84-year-old female with history of protein C deficiency, DVT, stroke/cerebral aneurysm in 1970s, presents with 30 pound weight loss, hemoptysis, cough for many months, who presented on 09/25/2024 with increased shortness of breath and emesis. CT
imaging revealed 12.3 cm right lower lobe mass with invasion into the left atrium, right hepatic lobe and adrenal gland with multiple pulmonary metastases.
During her stay, patient had an IR guided biopsy of right lower lobe which was positive for keratinizing squamous cell carcinoma of lung. Patient had been seen by pulmonary, cardiology, hematology oncology, as well as psychiatry service during the
hospital stay. 10/02 she had an episode of fever following which she had an x-ray which was not significantly changed and was also evaluated by infectious disease service.
On the morning of 10/03, patient woke up with respiratory distress and was hypoxic. She was placed on supplemental oxygen quickly increased to nonrebreather and a stat blood gas showed significant hypercapnia. She had very rhonchorous breath
sounds and was in respiratory distress. She was transferred to IMU and was placed on BiPAP. Patient failed to improve with BiPAP and follow-up gas showed worsening hypoxia and persistent hypercapnia. Patient was subsequently transferred to ICU
and emergently intubated and mechanically ventilated. Supervisor [employer] consultation was requested for further input.
10/04 overview. Patient currently mechanically ventilated, saturating 89% on 100% FiO2. MAP around 70 on 3 pressors, Levophed, vasopressin as well as phenylephrine. Bicarb drip infusing. Patient also on stress dose steroids. Breathing above the
vent at 37/min. Respiratory rate in 130s.
Goals of care 10/04. Patient has worsening shock with severe hypoxic and hypercapnic respiratory failure with aspiration pneumonia. Patient hemodynamically unstable, currently maxed out on 3 pressors along with bicarb infusion stress dose steroids.
Continued severe respiratory failure with saturation around 89% on 100% FiO2. Patient tachypneic and tachycardic. Met with patient's daughter at bedside. I updated them about the above critical condition. Patient's daughter has opted to proceed
with comfort focused care, which is appropriate in my opinion as patient is critically sick with a very poor prognosis particularly considering underlying stage IV cancer.
- Comfort care order placed
- Will use fentanyl as needed for respiratory distress or air hunger
Underlying diagnoses:
#1. Acute hypoxic and hypercapnic respiratory failure, Aspiration pneumonia
#2. Seevre septic Shock
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
#4. Paroxysmal atrial fibrillation
#5. History of DVT and protein C deficiency.
#6. Hemoptysis on admission
Other medical diagnoses:
- Hyponatremia. 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 Urine sodium 70, urine osmolality 336. Continue salt tablets, monitor serial labs.
- Hypothyroidism
- Gastroesophageal reflux disease
- History of IBS
- History of cerebral aneurysm in the 70s
- Adjustment disorder
Critical Care time 55 mins -- The patient is admitted for acute critical illness for the treatment of vital organ failure and/or prevention of further life-threatening conditions. Total care includes time spent in review of history, physical exam,
medications, hemodynamic/ventilator parameters, laboratory data, imaging and discussion with house staff, pharmacy, respiratory therapy, electrical calibrator, and nursing.
Data:
MRI Brain 09/2024: Evaluation is significantly limited by patient unintentional motion artifact.
No convincing acute intracranial abnormality noted. Chronic senescent changes.
No convincing MR evidence for intracranial metastases.
CT Chest/ABD 08/2024: Large malignant mass in the lower right hemithorax measuring up to 12.3 cm centered within the right lower lobe with significant invasion of adjacent structures including the posterior superior right hepatic lobe, the right
adrenal gland, and the left atrium.
Multiple pulmonary metastases.
Fluid attenuation hepatic lesions favored to represent cysts, but hepatic metastases are not completely excluded.
Other chronic findings, as detailed above.
ECHO 08/2024: Normal left ventricular chamber size. Normal left ventricular systolic
function. Left ventricular ejection fraction is 60-65%. Normal regional wall
motion. Mild concentric left ventricular hypertrophy. Normal diastolic
function.
Normal right ventricular size and function.
Mitral valve opens normally. Thickened mitral valve leaflets. Moderate mitral
regurgitation.
Aortic valve sclerosis. Trace aortic regurgitation.
Mild tricuspid regurgitation. Estimated pulmonary artery pressure of 20-25
mmHg.
IR guided RLLL lung biopsy 09/2024: Keratinizing Squamous cell cancer
Subjective Dataa
Subjective Data
Date of Service:
Date of Service: October 04, 2024
Subjective:
Patient currently intubated, mechanically ventilated and sedated
Review of Systems
General: Unobtainable - Sedation
Objective Data
Data Reviewed
Vital Signs / I&O / Oxygen:
Vital Signs
Temp Pulse Resp BP Pulse Ox
98 F 123 33 100/69 90
10/04/24 04:00 10/04/24 06:00 10/04/24 06:00 10/04/24 00:00 10/04/24 06:00
Intake and Output
10/03/24 10/04/24 10/05/24
06:59 06:59 06:59
Intake Total 480 / 524.1 3405.3 / 3405.3
Output Total 450 / 450 725 / 725
Balance 30 / 74.1 2680.3 / 2680.3
SaO2 [A/C] 92
SaO2 90
Nasal Cannula flow liters per 6
minute
Physical Exam
General: Comfortable
HEENT: Normocephalic
Cardiovascular: S1-S2
Respiratory: Crackles and Rhonchi
GI: Soft and Non Distended
Neurology: Other (Sedated)
Skin: Warm
Labs/Micro/Reports
Lab Data
10/04/24 06:00
10/04/24 06:00
Laboratory Results
10/03/24 10/03/24 10/03/24
07:54 07:55 14:25
PT
INR
pH Cancelled 7.34 L 7.38
pCO2 Cancelled 51 H 42 H
pO2 Cancelled 276 H 225 H
HCO3 Cancelled 27.5 24.8
O2 Delivery Level Cancelled Not Reportable
10/03/24 10/03/24 10/04/24
19:54 23:49 03:24
PT 41.9 H
INR 4.46
pH 7.35 7.34 L 7.29 L
pCO2 42 H 44 H 46 H
pO2 87 96 91
HCO3 23.2 23.7 22.1
O2 Delivery Level
Microbiology
10/03/24 08:13 Tracheal Aspirate Gram Stain - Preliminary
10/01/24 13:28 Blood/Venous Blood Culture - Preliminary
No Growth in 48 hours- Final report to follow
10/01/24 11:05 Blood/Venous Blood Culture - Preliminary
No Growth in 48 hours- Final report to follow
[2024-10-04] MEDS: NSS (PRESERVATIVE FREE) IV (07:57)
[2024-10-04] MEDS: LIDOCAINE 4% PATCH TOPICAL (07:57)
--- NOTE | 2024-10-04 07:58 | PTCARENOTE ---
Assumed care of pt. Dr. Maya at bedside discussing options/plan of care for pt with daughter Selma. Decision made to make pt comfort care due to the level of increasing support required to maintain BP and oxygenation/ventilation. Awaiting
food cashier for support and prayer. Comfort tray ordered for family.
[2024-10-04 08:00] VITALS: BP 93/66
--- NOTE | 2024-10-04 08:01 | W.PN.CARDCBS ---
Today's Communication / Plan
-
Clinically worse and now hypotensive on 3 pressors
Agree with plan for comfort care/extubate
Discussed with family
Will sign off.
Impression / Plan
-
PCP: Dr. Ness Elizabeth
Card: None prior to admission
Assessment:
resp distress/aspiration/VDRF
Admitted with abnormal CXR and possible lung malignancy 09/24/2024
Right lung mass involving mediastinum and liver
Paroxysmal A-fib with RVR
Spontaneous conversion to SR 09/26/2024
Recurrence of A-fib with RVR 09/30/2024
Suspected local metastatic invasion of adjacent structures including the LA possibly contributing to atrial arrhythmia
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
DVT
Stroke/cerebral aneurysms 1970s
Hypothyroidism
Gastroesophageal reflux disease
Hyponatremia
CT chest abdomen and pelvis 09/24/2024:
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
left atrium.
Multiple pulmonary metastases.
Fluid attenuation hepatic lesions favored to represent cysts, but hepatic metastases are not completely excluded.
Echo 09/25/24: normal LV size and function, no WMA, mod MR, mild TR, trace pericardial effusion. There is no mass seen abutting the heart.
Plan:
- Significantly worse and hypotensive on Kingsley-Synephrine, Levophed, and vasopressin overnight.
-Head CT with no bleed
-Remains tachycardic and hypotensive with sepsis/shock
-Plan will be for comfort care and extubation.
-Family at bedside
Progress Note - Director Of Content Marketing
Subjective
Date of Service: October 04, 2024
Remains hypotensive on 3 pressors. family now likely proceeding with comfort care.
Objective
Labs:
10/04/24 06:00
10/04/24 06:00
Labs
Hgb Cancelled 10/04/24 06:00
Hct Cancelled 10/04/24 06:00
Plt Count Cancelled 10/04/24 06:00
PT 41.9 Sec (11.4-14.6) H 10/04/24 03:24
INR 4.46 10/04/24 03:24
APTT 30.1 Sec (23.4-35.0) 10/03/24 04:30
Sodium Cancelled 10/04/24 06:00
Potassium Cancelled 10/04/24 06:00
BUN Cancelled 10/04/24 06:00
Creatinine Cancelled 10/04/24 06:00
Glucose Cancelled 10/04/24 06:00
Troponins
10/03/24
04:19
Troponin I < 0.012
Vital Signs and I&O:
Vital Signs
Temp Pulse Resp BP Pulse Ox
103.2 F H 123 33 100/69 89
10/04/24 07:55 10/04/24 06:00 10/04/24 06:00 10/04/24 00:00 10/04/24 07:44
Vital Signs
Temp Pulse Resp BP Pulse Ox
103.2 F H 123 33 100/69 89
10/04/24 07:55 10/04/24 06:00 10/04/24 06:00 10/04/24 00:00 10/04/24 07:44
Intake & Output
10/02/24 10/03/24 10/04/24 10/05/24
06:59 06:59 06:59 06:59
Intake Total 880 / 880 480 / 524.1 3405.3 / 3405.3
Output Total 450 / 450 725 / 725
Balance 880 / 880 30 / 74.1 2680.3 / 2680.3
Physical Exam
Physical Exam
GEN: No distress, intubated, sedated
HEENT: supple, anicteric, mmm
LUNGS: Rhonchi
CV: Reg, tachycardia S1/S2, 1/6 syst LSB, no gallop
ABD: soft, BS+, NT/ND
EXT: No edema
NEURO: Gross non-focal
SKIN: No rash
--- NOTE | 2024-10-04 08:07 | W.PN.ID1 ---
Date of Service
Date of Service: October 04, 2024
Today's Communication
Sign off
Assessment / Plan
Fever
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
Hypoxemic respiratory failure/VDRF
Leukocytosis
Hypotension
Clinical sepsis
GERD
Hypothyroidism
Protein C deficiency (Hx DVT)
IBS
Venous insufficiency
Recommendations:
Chart reviewed.
Family has decided to pursue comfort measures, with terminal extubation later today.
Antibiotics discontinued.
Emotional support provided to family.
Nothing further to add from an Infectious Diseases standpoint. Will see again at your request.
����������������������������������������������������������
Chief Complaint
-: Fever and Pneumonia
Vital Signs / Physical Exam
Vital Signs
Vital Signs
Temp Pulse Resp BP Pulse Ox
103.2 F H 129 38 93/66 30
10/04/24 07:55 10/04/24 08:00 10/04/24 08:00 10/04/24 08:00 10/04/24 08:05
Physical Exam
Constitutional: Acutely Ill
Head: Other (ET tube in place.)
Pulmonary: Other (On vent.)
Gastrointestinal: Non Distended
Psychological: Calm
Objective Data
Lab Data
Lab Results
10/04/24 06:00
10/04/24 06:00
PT 41.9 Sec (11.4-14.6) H 10/04/24 03:24
INR 4.46 10/04/24 03:24
APTT 30.1 Sec (23.4-35.0) 10/03/24 04:30
Estimated Creat Clear Cancelled 10/04/24 06:00
Lactic Acid Cancelled 10/04/24 06:00
Total Bilirubin 2.3 mg/dl (0.2-1.3) H 10/04/24 03:24
AST 23 U/L (14-36) 10/04/24 03:24
ALT 26 U/L (0-35) 10/04/24 03:24
Alkaline Phosphatase 97 U/L (38-126) 10/04/24 03:24
Most recent labs reviewed.
Micro Results:
10/03/24 08:13 Respiratory Culture - Pending
Tracheal Aspirate Gram Stain - Preliminary
10/01/24 13:28 Blood Culture - Preliminary
Blood/Venous No Growth in 48 hours- Final report to follow
10/01/24 11:05 Blood Culture - Preliminary
Blood/Venous No Growth in 48 hours- Final report to follow
09/25/24 06:12 MRSA Screen - Final
Nose No Methicillin Resistant Staphylococcus aureus isolated.
Imaging:
09/24/2024 CT C/A/P : Large malignant mass in the lower right hemithorax measuring 12.3 x 10.4 x 10.5 cm. This is centered within the right lower lobe with significant invasion of adjacent structures including the posterior right hepatic lobe, the
right adrenal gland, and the left atrium. Encasement and obstruction of the right middle and lower lobe bronchi. Complete atelectasis of the right middle lobe. Spiculated pulmonary metastases measuring 3.8 cm in the left upper lobe, 1.3 cm in the
right upper lobe, and 1.8 cm in the right upper lobe. Groundglass opacity in the apex of the right upper lobe may also be metastatic. Small right pleural effusion. No pneumothorax.
Please see full dictation for additional detail. Film personally viewed.
Care Review
Plan reviewed with: Physician (Critical Care)
--- NOTE | 2024-10-04 09:53 | PTCARENOTE ---
Sheeting Puller to bedside to visit with pt and family. Awaiting Rabbi to begin comfort care. Vasopressin bag empty but still need BP support while awaiting Rabbi so Kingsley-synephrine restarted to asst with BP.
[2024-10-04] MEDS: SUBLIMAZE 50 MCG IV (10:01)
--- NOTE | 2024-10-04 10:28 | CHAP ---
Visit requested by ICU staff. Emotional and spiritual support provided for Kike, daughter, Selma, and son-in-law, Anrdew. Contacted Rabbi Hart, who graciously agreed to come at 10:30. Prayer blanket provided, along with assurance of our on-going
availability.
--- NOTE | 2024-10-04 10:42 | PTCARENOTE ---
Map 40s, HR slowing. Levo, Kingsley max dose. Vent settings unchanged. Rabbi to bedside.
--- NOTE | 2024-10-04 11:14 | RESPNOTE ---
patient extubated at this time. family at bedside.
--- NOTE | 2024-10-04 11:17 | PTCARENOTE ---
Addendum entered by Cielo Gallegos RN 10/04/24 12:08:
Time of [address] Mancilla.
Original Note:
Pressors off at 1055 after Rabbi visit with family at bedside. Pt passed at 1106. Ventillator off and pt extubated after asystole. Hospitalist notified.
--- NOTE | 2024-10-04 12:00 | W.PN.DEATH ---
Pronouncement of
-
Called to see patient to pronounce.
No spontaneous heart tones or respirations noted.
Patient not responsive to verbal stimuli.
Patient is pronounced .
Time of : 11:23
Date of : 10/04/24
Cause of : Aspiration pneumonia
Family Notified: Yes
--- NOTE | 2024-10-04 12:01 | W.DCSUMMARY ---
Discharge Summary
Discharge Data
Date of Admission: 09/25/24
Date of Discharge: 10/04/24
-
Pending Results: No
Hospital Course
Patient 84 years old female with significant comorbidities presented to the hospital with hemoptysis weight loss and lung mass. Patient had biopsy while in the hospital and was diagnosed with squamous cell lung cancer. Course complicated with
septic shock and respiratory failure due to aspiration pneumonia. She was intubated and placed on mechanical ventilation. She was given broad-spectrum antibiotics and pressors. Despite best efforts, patient continued to deteriorate clinically and
the technical photographer discussed with family and decided on comfort care measures. Patient was terminally extubated today and on 10/04/2024.
Discharge Plan
-
Patient Disposition:
Date/Time
Date/Time: 10/04/24 11:06
Discharge Date and Time
Discharge Date/Time: 10/04/24 11:06
Print Language: ANGOLAN
== END 2024-10-04 11:06 | disposition expired | DRG 208 ==
LOC: ICU 02:35
PROVIDERS: Internal Medicine; Nurse Practitioner Gerontology; Nurse Practitioner Primary Care; Radiology Diagnostic Radiology; Radiology Vascular & Interventional Radiology; Student in an Organized Health Care Education/Training Program; ADMITTING PHYSICIAN Hospitalist; ATTENDING PHYSICIAN Hospitalist; CONSULT PHYSICIAN Internal Medicine; CONSULT PHYSICIAN Internal Medicine Infectious Disease; EMERGENCY PHYSICIAN Emergency Medicine; OTHER PHYSICIAN Internal Medicine Cardiovascular Disease; OTHER PHYSICIAN Internal Medicine Critical Care Medicine; OTHER PHYSICIAN Internal Medicine Hematology & Oncology; OTHER PHYSICIAN Psychiatry & Neurology Psychiatry
PROC: 0B9F3ZX Drainage of Right Lower Lung Lobe, Percutaneous Approach, Diagnostic (ICD-10-PCS; 2024-09-30)
PROC: 03HY32Z Insertion of Monitoring Device into Upper Artery, Percutaneous Approach (ICD-10-PCS; 2024-10-03)
PROC: 0DH67UZ Insertion of Feeding Device into Stomach, Via Natural or Artificial Opening (ICD-10-PCS; 2024-10-03)
PROC: 05H533Z Insertion of Infusion Device into Right Subclavian Vein, Percutaneous Approach (ICD-10-PCS; 2024-10-03)
PROC: 4A133B1 Monitoring of Arterial Pressure, Peripheral, Percutaneous Approach (ICD-10-PCS; 2024-10-03)
PROC: 5A09357 Assistance with Respiratory Ventilation, Less than 24 Consecutive Hours, Continuous Positive Airway Pressure (ICD-10-PCS; 2024-10-03)
PROC: 5A1935Z Respiratory Ventilation, Less than 24 Consecutive Hours (ICD-10-PCS; 2024-10-03)
PROC: 0BH17EZ Insertion of Endotracheal Airway into Trachea, Via Natural or Artificial Opening (ICD-10-PCS; 2024-10-03)
PROC: 4A133J1 Monitoring of Arterial Pulse, Peripheral, Percutaneous Approach (ICD-10-PCS; 2024-10-03)
DX: C34.31 Malignant neoplasm of lower lobe, right bronchus or lung (principal); J96.01 Acute respiratory failure with hypoxia; J69.0 Pneumonitis due to inhalation of food and vomit; A41.9 Sepsis, unspecified organism; R65.21 Severe sepsis with septic shock; G93.41 Metabolic encephalopathy; J96.02 Acute respiratory failure with hypercapnia; J18.9 Pneumonia, unspecified organism; D68.59 Other primary thrombophilia; C78.7 Secondary malignant neoplasm of liver and intrahepatic bile duct; R04.2 Hemoptysis; J98.11 Atelectasis; I31.31 Malignant pericardial effusion in diseases classified elsewhere; E22.2 Syndrome of inappropriate secretion of antidiuretic hormone; Z99.11 Dependence on respirator [ventilator] status; C79.71 Secondary malignant neoplasm of right adrenal gland; C79.89 Secondary malignant neoplasm of other specified sites; C78.02 Secondary malignant neoplasm of left lung; Z51.5 Encounter for palliative care; R63.4 Abnormal weight loss; F20.9 Schizophrenia, unspecified; F31.9 Bipolar disorder, unspecified; R11.14 Bilious vomiting; R26.89 Other abnormalities of gait and mobility; E03.9 Hypothyroidism, unspecified; F43.23 Adjustment disorder with mixed anxiety and depressed mood; K21.9 Gastro-esophageal reflux disease without esophagitis; G40.909 Epilepsy, unspecified, not intractable, without status epilepticus; K58.9 Irritable bowel syndrome, unspecified; I48.0 Paroxysmal atrial fibrillation; I87.8 Other specified disorders of veins; R62.7 Adult failure to thrive; I34.0 Nonrheumatic mitral (valve) insufficiency; I45.10 Unspecified right bundle-branch block; R63.0 Anorexia; R50.9 Fever, unspecified; I87.2 Venous insufficiency (chronic) (peripheral); I69.398 Other sequelae of cerebral infarction; Z60.2 Problems related to living alone; Z68.25 Body mass index [BMI] 25.0-25.9, adult; Z90.710 Acquired absence of both cervix and uterus; Z98.1 Arthrodesis status; Z83.3 Family history of diabetes mellitus; Z82.49 Family history of ischemic heart disease and other diseases of the circulatory system; Z88.2 Allergy status to sulfonamides; Z79.01 Long term (current) use of anticoagulants; Z86.718 Personal history of other venous thrombosis and embolism; Z79.890 Hormone replacement therapy
CPT/HCPCS: 88305; 32408; 36600; 70450; 70553; 71045; 71046; 71260; 74177; 80048; 80053; 80076; 81003; 81015; 82805; 82962; 83605; 83690; 83735; 83880; 83930; 83935; 84300; 84443; 84478; 84484; 85025; 85027; 85610; 85730; 87040; 87070; 87205; 93005; 93306; 94002; 94003; 94640; 94660; 96360; 97116; 97163; 97167; 99152; 99153; 99285; J7030; Q9967